=== PATIENT | male | born 1940 | race Hispanic/Latino ===

== ENCOUNTER 2023-06-19 16:10 | Emergency (ER) | payer OTHER ==
[~2023-06-19] VITALS: Ht 180.3 cm; Wt 83.9 kg
[2023-06-19 16:13] VITALS: BP 154/74; PULSE 79; RESP 14
== END 2023-06-19 16:56 | disposition left against medical advice (07) ==
LOC: EDH 16:10
DX: R46.1 Bizarre personal appearance (principal); Z53.21 Procedure and treatment not carried out due to patient leaving prior to being seen by health care provider

== ENCOUNTER 2023-10-02 16:31 | Emergency (ER) | payer MEDICARE, OTHER ==
[~2023-10-02] VITALS: Ht 165.1 cm; Wt 72.6 kg
[2023-10-02 16:48] VITALS: BP 143/68; O2SAT 94
[2023-10-02] MEDS ORDERED: ALBUTEROL 0.042% 1.25MG/3ML IH ONE (17:00)
[2023-10-02 17:15] VITALS: PULSE 76; RESP 20
[2023-10-02] MEDS ORDERED: ALBUTEROL 0.083% 2.5 MG/3 ML INH IH ONE (17:30)
[2023-10-02] MEDS ORDERED: FAMO-136 PO (17:42)
[2023-10-02] MEDS ORDERED: ALBUHFA IH (17:42)
[2023-10-02] MEDS ORDERED: METO-296 PO (17:42)
== END 2023-10-02 18:08 | disposition home or self-care (01) ==
LOC: EDH 16:31
DX: R13.10 Dysphagia, unspecified (principal); J45.998 Other asthma; I10 Essential (primary) hypertension; E78.00 Pure hypercholesterolemia, unspecified; F32.A Depression, unspecified; F03.90 Unspecified dementia, unspecified severity, without behavioral disturbance, psychotic disturbance, mood disturbance, and anxiety
CPT/HCPCS: 94640

== ENCOUNTER 2024-03-12 13:13 | Inpatient (IN) | payer OTHER ==
[2024-03-12] VITALS (11 sets, daily range): BP systolic 113–162; BP diastolic 56–87; PULSE 56–72; RESP 14–20; O2SAT 98
[~2024-03-12] VITALS: Ht 157.5 cm; Wt 73.9 kg
[~2024-03-12 13:13] MED LIST: ALBUHFA IH; FAMO-136 PO; METO-296 PO
[2024-03-12 13:35] LABS: BASOPHILS # (AUTO) 0.03 K/uL (0.00-0.20); BASOPHILS % (AUTO) 0.3 % (0.0-5.0); EOSINOPHILS # (AUTO) 0.29 K/uL (0.00-0.70); EOSINOPHILS % (AUTO) 3.2 % (0.0-8.0); HEMATOCRIT 47.6 % (42-54); IMMATURE GRANULOCYTE ABSOLUTE 0.05 K/uL (0-1); LYMPHOCYTES # (AUTO) 2.3 K/uL (1.0-4.8); LYMPHOCYTES % (AUTO) 25.2 % (21.0-51.0); MEAN CORPUSCULAR HEMOGLOBIN 31.2 pg (27.0-33.0); MEAN CORPUSCULAR HGB CONC 34.2 g/dL (32.0-36.0); MEAN CORPUSCULAR VOLUME 91.2 fL (79-99); MONOCYTES # (AUTO) 0.7 K/uL (0.1-1.0); MONOCYTES % (AUTO) 7.6 % (3.0-13.0); NEUTROPHILS # (AUTO) 5.8 K/uL (1.8-7.7); NEUTROPHILS % (AUTO) 63.2 % (40.0-77.0); PLATELET COUNT (AUTO) 223 K/uL (130-400); RED BLOOD CELL COUNT(AUTO) 5.22 MIL/uL (4.50-6.20); RED CELL DISTRIBUTION WIDTH 13.4 % (11.0-15.5); WHITE BLOOD COUNT (AUTO) 9.2 K/uL (4.8-10.8)
[2024-03-12 13:49] LABS: ALBUMIN 4.1 g/dL (3.5-5.0); BILIRUBIN,TOTAL 0.6 mg/dL (0.2-1.0); POTASSIUM 3.9 mmol/L (3.5-5.1); TOTAL PROTEIN, SERUM 7.7 g/dL (6.0-8.3)
[2024-03-12 13:59] LABS: INR 0.96 (0.85-1.15); PROTHROMBIN TIME 11.4 SEC (9.6-11.6)
[2024-03-12 14:01] LABS: PARTIAL THROMBOPLASTIN TIME 28.5 SEC (26.3-35.5)
[2024-03-12] MEDS: GLUCAGON 1MG KIT 1 MG ML IV SCH (14:18)
[2024-03-12] MEDS: GLUCAGON 1MG KIT 1 MG ML IV ONE (16:35)
[2024-03-12] MEDS: 0.9%NACL 1000ML 1,000 ML IV SCH (16:37)
[2024-03-12] MEDS: GLUCAGON 1MG KIT 1 MG ML ONE (16:39)
[2024-03-12 16:45] LABS: HEMOGLOBIN A1C 6.7 % (4.0-6.0)
[2024-03-12 16:58] LABS: THYROID STIMULATING HORMONE 2.56 uIU/mL (0.36-3.74)
[2024-03-12] MEDS ORDERED: PROPOFOL 10 MG/ML 20ML VIAL IV ONE (17:55)
[2024-03-12] MEDS ORDERED: LIDOCAINE PF 100MG/5ML (2%) SYRINGE 5ML ONE (17:55)
[2024-03-12] MEDS ORDERED: SUCCINYLCHOLINE CHLORIDE 20 MG/ML 10 ML VIAL ONE (17:55)
[2024-03-12] MEDS ORDERED: FENTANYL CITRATE PF 50 MCG/1 ML 2ML VIAL ONE (17:55)
[2024-03-12] MEDS ORDERED: KETAMINE 50MG/ML SYRINGE 50 MG/ML DISP.SYRIN ONE (17:55)
[2024-03-12] MEDS ORDERED: EPHEDRINE SULFATE 50 MG/ML AMPULE ONE (18:21)
[2024-03-12] MEDS ORDERED: ONDANSETRON 4MG INJ ONE (18:52)
[2024-03-12] MEDS: PANTOPRAZOLE 40 MG/VIAL IVP SCH (21:14)
[2024-03-13] VITALS (8 sets, daily range): BP systolic 116–129; BP diastolic 57–69; PULSE 67–79; RESP 18–22; O2SAT 94–95
[2024-03-13 07:42] LABS: BASOPHILS # (AUTO) 0.03 K/uL (0.00-0.20); BASOPHILS % (AUTO) 0.2 % (0.0-5.0); EOSINOPHILS # (AUTO) 0.01 K/uL (0.00-0.70); EOSINOPHILS % (AUTO) 0.1 % (0.0-8.0); HEMATOCRIT 43.4 % (42-54); LYMPHOCYTES # (AUTO) 1.2 K/uL (1.0-4.8); LYMPHOCYTES % (AUTO) 7.5 % (21.0-51.0); MEAN CORPUSCULAR HEMOGLOBIN 31.7 pg (27.0-33.0); MEAN CORPUSCULAR HGB CONC 33.6 g/dL (32.0-36.0); MEAN CORPUSCULAR VOLUME 94.3 fL (79-99); MONOCYTES # (AUTO) 0.8 K/uL (0.1-1.0); MONOCYTES % (AUTO) 5.1 % (3.0-13.0); NEUTROPHILS # (AUTO) 14.2 K/uL (1.8-7.7); NEUTROPHILS % (AUTO) 86.5 % (40.0-77.0); PLATELET COUNT (AUTO) 187 K/uL (130-400); RED CELL DISTRIBUTION WIDTH 13.7 % (11.0-15.5); WHITE BLOOD COUNT (AUTO) 16.4 K/uL (4.8-10.8)
[2024-03-13 07:56] LABS: CREATININE 1.1 mg/dL (0.5-1.3); POTASSIUM 3.8 mmol/L (3.5-5.1)
[2024-03-13] MEDS ORDERED: PROPOFOL 10 MG/ML 20ML VIAL IV ONE (08:28)
[2024-03-13] MEDS ORDERED: LIDOCAINE HCL 400MG/20ML VIAL ONE (08:29)
[2024-03-13] MEDS ORDERED: SERT-440 PO (20:06)
[2024-03-13] MEDS ORDERED: OMEG100033 PO (20:06)
[2024-03-13] MEDS ORDERED: LOSA25TA41 PO (20:06)
[2024-03-13] MEDS ORDERED: CETI10TA87 PO (20:06)
[2024-03-13] MEDS ORDERED: ATOR10 PO (20:06)
[2024-03-13] MEDS ORDERED: MEMA5TAB16 PO (20:06)
[2024-03-14 03:15] VITALS: BP 143/69; PULSE 64; RESP 18
[2024-03-14 04:15] LABS: BASOPHILS # (AUTO) 0.02 K/uL (0.00-0.20); BASOPHILS % (AUTO) 0.2 % (0.0-5.0); EOSINOPHILS # (AUTO) 0.19 K/uL (0.00-0.70); EOSINOPHILS % (AUTO) 1.7 % (0.0-8.0); HEMATOCRIT 36.3 % (42-54); IMMATURE GRANULOCYTE ABSOLUTE 0.05 K/uL (0-1); LYMPHOCYTES # (AUTO) 1.7 K/uL (1.0-4.8); LYMPHOCYTES % (AUTO) 15.4 % (21.0-51.0); MEAN CORPUSCULAR HEMOGLOBIN 31.2 pg (27.0-33.0); MEAN CORPUSCULAR HGB CONC 33.6 g/dL (32.0-36.0); MEAN CORPUSCULAR VOLUME 92.8 fL (79-99); MONOCYTES # (AUTO) 0.8 K/uL (0.1-1.0); MONOCYTES % (AUTO) 6.7 % (3.0-13.0); NEUTROPHILS # (AUTO) 8.5 K/uL (1.8-7.7); NEUTROPHILS % (AUTO) 75.6 % (40.0-77.0); PLATELET COUNT (AUTO) 170 K/uL (130-400); RED BLOOD CELL COUNT(AUTO) 3.91 MIL/uL (4.50-6.20); RED CELL DISTRIBUTION WIDTH 13.6 % (11.0-15.5); WHITE BLOOD COUNT (AUTO) 11.2 K/uL (4.8-10.8)
[2024-03-14 04:41] LABS: CREATININE 0.9 mg/dL (0.5-1.3); MAGNESIUM 1.9 mg/dL (1.80-2.40); PHOSPHORUS 2.2 mg/dL (2.5-4.9); POTASSIUM 3.6 mmol/L (3.5-5.1)
[2024-03-14 07:00] VITALS: BP 146/80; PULSE 65; RESP 20
[2024-03-14 08:00] VITALS: O2SAT 94
[2024-03-14] MEDS ORDERED: PANT40TA55 PO (08:23)
== END 2024-03-14 11:35 | disposition home or self-care (01) | DRG 394 ==
LOC: EDH 13:13 → EDHIP 16:14 → 2DH 17:58 → 2AH 18:48
PROVIDERS: ADMIT Internal Medicine; ATTEND Internal Medicine
PROC: 0DC38ZZ Extirpation of Matter from Lower Esophagus, Via Natural or Artificial Opening Endoscopic (ICD-10-PCS; principal; 2024-03-12)
PROC: 0D758ZZ Dilation of Esophagus, Via Natural or Artificial Opening Endoscopic (ICD-10-PCS; 2024-03-12)
DX: T18.128A Food in esophagus causing other injury, initial encounter (principal); Q39.9 Congenital malformation of esophagus, unspecified; R94.31 Abnormal electrocardiogram [ECG] [EKG]; E78.00 Pure hypercholesterolemia, unspecified; F03.90 Unspecified dementia, unspecified severity, without behavioral disturbance, psychotic disturbance, mood disturbance, and anxiety; I11.9 Hypertensive heart disease without heart failure; W44.F3XA Food entering into or through a natural orifice, initial encounter; F32.A Depression, unspecified; Y93.G3 Activity, cooking and baking; Y92.89 Other specified places as the place of occurrence of the external cause; Y99.8 Other external cause status; K21.00 Gastro-esophageal reflux disease with esophagitis, without bleeding
CPT/HCPCS: 36415; 43247; 70490; 71045; 80048; 80053; 83036; 83735; 84100; 84145; 84443; 84484; 85025; 85610; 85730; 86140; 92610; 93005; 93306; 93356; 96374; 96375; 96376; C9113; G0378; J0330; J1610; J2001; J2405; J2704; J3010; J3490; J7030; A4657

== ENCOUNTER 2025-03-07 21:49 | Emergency (ER) | payer OTHER ==
[~2025-03-07] VITALS: Ht 160 cm; Wt 74.4 kg
[~2025-03-07 21:49] MED LIST changes: -ALBUHFA IH; +ATOR10 PO; +CETI10TA87 PO; -FAMO-136 PO; +LOSA25TA41 PO; +MEMA5TAB16 PO; -METO-296 PO; +OMEG100033 PO; +PANT40TA55 PO; +SERT-440 PO
[2025-03-07] MEDS ORDERED: IOHEXOL-350 75 ML VIAL IV ONE (21:54)
--- NOTE | 2025-03-07 21:57 | NUR ---
FINGERSTICK GLUCOSE 322 MG/DL, PATIENT TO CT WITH RN
--- NOTE | 2025-03-07 22:07 | NUR ---
PATIENT RETURNED FROM CT
[2025-03-07 22:13] LABS: BASOPHILS # (AUTO) 0.03 K/uL (0.00-0.20); BASOPHILS % (AUTO) 0.4 % (0.0-5.0); EOSINOPHILS % (AUTO) 2.9 % (0.0-8.0); HEMATOCRIT 43.8 % (42-54); IMMATURE GRANULOCYTE ABSOLUTE 0.04 K/uL (0-1); LYMPHOCYTES % (AUTO) 28.2 % (21.0-51.0); MEAN CORPUSCULAR HEMOGLOBIN 32.3 pg (27.0-33.0); MEAN CORPUSCULAR HGB CONC 34.7 g/dL (32.0-36.0); MEAN CORPUSCULAR VOLUME 93.2 fL (79-99); MONOCYTES # (AUTO) 0.5 K/uL (0.1-1.0); MONOCYTES % (AUTO) 6.9 % (3.0-13.0); NEUTROPHILS # (AUTO) 4.2 K/uL (1.8-7.7); PLATELET COUNT (AUTO) 199 K/uL (130-400); RED CELL DISTRIBUTION WIDTH 13.5 % (11.0-15.5); WHITE BLOOD COUNT (AUTO) 6.9 K/uL (4.8-10.8)
--- NOTE | 2025-03-07 22:13 | HMCIMG ---
CT HEAD/BRAIN W/O CONTRAST HISTORY: Postop COMPARISON: None TECHNIQUE: Multiple sequential axial images of the head were obtained from the base of the skull through vertex. Patient was not given contrast through intravenous route. FINDINGS: The ventricles and extraventricular CSF spaces are dilated consistent with cerebral atrophy. Nonspecific white matter changes seen. There is no midline shift, mass effect or herniation. No acute intracranial bleed is seen. Visualized portion of the paranasal sinuses are grossly within normal limits. IMPRESSION: 1. No acute intracranial bleed is seen. 2. Atrophy with white matter changes. CT was performed with one or more following dose reduction techniques: automated exposure control, adjustment of the mA and kv according to patient's size, or use of a iterative reconstruction technique.
--- NOTE | 2025-03-07 22:19 | EKG ---
[facility] Test Date: 2025-03-07 Test Time: 22:16:08 Pat Name: TAMIR OWUSU Department: [facility] Room: Gender: M Development Scientist: [id number] : 1940 Requested By: ANT CHRISTIANSON Order Number: [id number] Reading MD: Bhumi Lee Measurements Intervals Mobile Rate: 66 P: -3 MO: 171 QRS: -38 QRSD: 143 T: 143 QT: 434 QTc: 454 Interpretive Statements Sinus rhythm Left bundle branch block ST elevation secondary to IVCD Compared to ECG 03/12/2024 13:31:04 Intraventricular conduction delay now present ST (T wave) deviation now present Electronically Signed On 03-08-2025 11:56:42 CDT by Bhumi Lee Please click the below link to view image of tracing.
[2025-03-07 22:29] LABS: CREATININE 0.9 mg/dL (0.5-1.3); POTASSIUM 4.2 mmol/L (3.5-5.1)
[2025-03-07 22:30] LABS: MAGNESIUM 1.9 mg/dL (1.80-2.40)
[2025-03-07 22:31] LABS: INR 1.02 (0.85-1.15); PROTHROMBIN TIME 10.8 SEC (9.6-11.6)
[2025-03-07 22:32] LABS: PARTIAL THROMBOPLASTIN TIME 28.1 SEC (26.3-35.5)
--- NOTE | 2025-03-07 23:27 | NUR ---
TRIAGE EDIT DUE TO MORE PT INFORMATION OBTAINED
[2025-03-07] MEDS: INSULIN humuLIN R 100 UNIT/ML 3ML IV ONE (23:28)
--- NOTE | 2025-03-07 23:35 | ERN ---
ED Note History of Present Illness Stated Complaint: BILATERAL HAND WEAKNESS, GAIT UNBALANCE Chief Complaint: Stroke Symptoms Time Seen by MD: 22:20 Time Seen by Midlevel: 22:21 Dictation: 85-year-old male presents to the emergency department per EMS accompanied by his daughter for concern of having generalized body weakness that was noted today at 2100. The daughter states that she was concerned that he appeared fatigued. The patient denies having any headache, nausea, vomiting or changes in vision. There is also no report of any chest pain, chest pressure or shortness of breath. Upon initial evaluation, the patient presents in no acute distress. Patient states that he feels currently fine. The daughter states that he is upon occasional forgetful but currently has his normal neurological self. Allergies: Coded Allergies: No Known Allergies (Unverified Allergy, Unknown, 06/19/23) Home Meds Active Scripts Pantoprazole Sodium (Protonix) 40 Mg Ectab, 40 MG PO BID, #60 TAB.EC Prov:FABIOLA REYES MD 03/14/24 Reported Medications Cetirizine HCl (Cetirizine HCl) 10 Mg Tab.chew, 10 MG PO DAILY, TAB.CHEW 03/13/24 Sertraline HCl (Sertraline HCl) 100 Mg Tablet, 100 MG PO HS, TAB 03/13/24 Memantine HCl (Memantine HCl) 5 Mg Tablet, 2.5 MG PO DAILY, TAB 03/13/24 Losartan Potassium (Losartan Potassium) 25 Mg Tablet, 12.5 MG PO DAILY, TAB 03/13/24 [place]-3/Dha/Epa/Fish Oil (Fish Oil 1,000 mg Softgel) 1,000 Mg (120 Mg-180 Mg) Capsule, 1000 MG PO DAILY, CAP 03/13/24 Atorvastatin Calcium (LIPITOR) 20 Mg Tab, 20 MG PO HS, TAB 03/13/24 Past Medical History Past Medical History: Dementia, Depression, Diabetes-Type II, High Cholesterol, Hypertension, Sinusitis, Other Additional Past Medical Hx: ALZHEIMERS, MENIERE'S Surgical History: Unknown RN Note Reviewed/Agreed w/PFSH: Yes Review of System Dictation Constitutional: Negative for fever,chills, and weight loss Eyes: Negative for injury, pain,redness, and discharge ENT: Negative for injury,pain or swelling Cardiovascular: Negative for chest pain, palpitations, and edema Respiratory: Negative for shortness of breath, cough, and wheezing, Abdomen/GI: Negative for abdominal pain, nausea, vomiting, diarrhea, and constipation Back: Negative for injury and pain : Negative for injury, bleeding and discharge MS/Extremity: Negative for injury and deformity Skin: Negative for rash, and discoloration Neuro: Negative for headache, weakness, numbness, tingling, and seizure Psych: Negative for suicide ideation, homicidal ideation, and hallucinations Initial Vital Sign VS Vital Signs Date Time Temp Pulse Resp B/P (MAP) Pulse Ox O2 Delivery O2 Flow Rate FiO2 03/07/25 21:51 98.4 71 20 165/74 92 Room Air 03/07/25 22:34 0 21 Physical Exam Dictation General: awake, alert, NAD Head/Face: Normocephalic, atraumatic Eyes: PERRL, EOMI ENT: Oral mucosa moist Neck: Trachea midline, supple Cardiovascular: RRR, no edema Respiratory: Symmetrical, non-labored Abdomen: Soft, non-tender, non-distended, no guarding. Skin: Warm, dry, good turgor, no rash MS/Extremity: Pulses equal, no cyanosis, neurovascular intact, FROM Neuro: COAx4, GCS 15, steady gait, Psych: Normal behavior, mood, and affect normal Results (Laboratory/Radiology) Laboratory/Radiology Laboratory Tests Test 03/07/25 21:56 03/07/25 22:07 03/07/25 23:17 Whole Blood Glucose 322 MG/DL (70-110) H White Blood Count 6.9 K/uL (4.8-10.8) Red Blood Count 4.70 MIL/uL (4.50-6.20) Hemoglobin 15.2 g/dL (14.0-18.0) Hematocrit 43.8 % (42-54) Mean Corpuscular Volume 93.2 fL (79-99) Mean Corpuscular Hemoglobin 32.3 pg (27.0-33.0) Mean Corpuscular Hemoglobin Concent 34.7 g/dL (32.0-36.0) Red Cell Distribution Width 13.5 % (11.0-15.5) Platelet Count 199 K/uL (130-400) Mean Platelet Volume 10.7 fL (7.5-10.5) H Immature Granulocyte % (Auto) 0.6 % (0-1) Neutrophils (%) (Auto) 61.0 % (40.0-77.0) Lymphocytes (%) (Auto) 28.2 % (21.0-51.0) Monocytes (%) (Auto) 6.9 % (3.0-13.0) Eosinophils (%) (Auto) 2.9 % (0.0-8.0) Basophils (%) (Auto) 0.4 % (0.0-5.0) Neutrophils # (Auto) 4.2 K/uL (1.8-7.7) Lymphocytes # (Auto) 2.0 K/uL (1.0-4.8) Monocytes # (Auto) 0.5 K/uL (0.1-1.0) Eosinophils # (Auto) 0.20 K/uL (0.00-0.70) Basophils # (Auto) 0.03 K/uL (0.00-0.20) Absolute Immature Granulocyte (auto 0.04 K/uL (0-1) Nucleated Red Blood Cells 0.0 % (0.0-0.19) Prothrombin Time 10.8 SEC (9.6-11.6) Prothromb Time International Ratio 1.02 (0.85-1.15) Activated Partial Thromboplast Time 28.1 SEC (26.3-35.5) Sodium Level 136 mmol/L (136-145) Potassium Level 4.2 mmol/L (3.5-5.1) Chloride Level 101 mmol/L (101-111) Carbon Dioxide Level 25 mmol/L (21-32) Blood Urea Nitrogen 11 mg/dL (7-18) Creatinine 0.9 mg/dL (0.5-1.3) Glomerular Filtration Rate Calc 85 mL/min (>90) Random Glucose 337 mg/dL (70-105) H Total Calcium 8.9 mg/dL (8.5-10.1) Magnesium Level 1.90 mg/dL (1.80-2.40) Troponin I High Sensitivity 11 ng/L (4-75) Whole Blood Ketones Quantitative 0.2 mmol/L (0.0-0.6) Labs Reviewed?: Yes EKG: (+) LBBB EKG Comment: Ventricular rate 66 beats per minute DE 172 MS QRS 143 MS QT 434 MS No STEMI. The EKG compared with the previous 1 shows a left bundle-branch block. ED Course ED Course Orders Procedure Category Date Status Time Cbc With Differential LAB 03/07/25 Complete 21:54 Basic Metabolic Panel LAB 03/07/25 Complete 21:54 Troponin I High LAB 03/07/25 Complete Sensitivity 21:54 Ct Head/Brain W/O CT 03/07/25 Resulted Contrast 21:54 Bedside Glucose CPOE 03/07/25 Transmitted Fingerstick 21:54 Insert 2 Large Bore CPOE 03/07/25 Transmitted IVs 21:54 Place On Cardiac&O2 CPOE 03/07/25 Transmitted Monitoring 21:54 Keep Patient Npo CPOE 03/07/25 Transmitted 21:54 Complete Nih Stroke CPOE 03/07/25 Transmitted Scale 21:54 Maintain Patient CPOE 03/07/25 Transmitted Safety 21:54 Pt And Ptt LAB 03/07/25 Complete 21:54 Iohexol (Omnipaque) PHA 03/07/25 Complete 21:54 12 Lead Ekg Tracing- EKG 03/07/25 Complete Technical 21:55 Chest 1vw RAD 03/07/25 Taken 21:55 Magnesium LAB 03/07/25 Complete 22:07 Ketone Blood LAB 03/07/25 Complete Quantitative 23:09 Insulin Regular, PHA 03/07/25 Complete Human 3ml (Humulin R 23:30 Current Medications Medications (Trade) Dose Ordered Sig/Gianna Route PRN Reason Start Time Stop Time Status Last Admin Dose Admin Insulin Human Regular (humuLIN R 100 UNIT/ML 3ML) 5 unit ONCE ONCE IV 03/07/25 23:30 03/07/25 23:31 DC 03/07/25 23:28 Iohexol (Omnipaque) 75 ml STK-MED ONCE IV 03/07/25 21:54 03/07/25 21:55 DC Vital Signs Date Time Temp Pulse Resp B/P (MAP) Pulse Ox O2 Delivery O2 Flow Rate FiO2 03/07/25 22:34 68 22 158/68 96 Room Air* 0 21 03/07/25 21:51 98.4 71 20 165/74 92 Room Air HEART Score Response (Comments) Value History: Low suspicion (0) 0 EKG: Normal 0 Age: > 65yrs (+2) 2 Risk Factors: 1-2 risk factors (+1) 1 Initial Troponin: Normal limit (0) 0 Total 3 Medical Decision Making MDM MDM: Differential diagnosis: Generalized weakness, electrolyte imbalance, CVA. Rationale: Tests considered and ordered secondary to shared decision making include: Previous outside records reviewed: Old ER visits. Risk of complication and/or morbidity or mortality of patient management: None Medications-Per medication reconciliation Need for hospitalization: Patient does not meet criteria for hospitalization. Need for emergency major/minor surgery: No There are no social concerns with this patient. Prescription drug management Prescriptions will include symptomatic care Patient's prior external medical records from other ER visits were reviewed by me as indicated. Prior testing and results from previous visits were reviewed. Prior tests were taken into account with medical decision making and resource utilization, independent historian/historians were used to obtain complete medical history. I independently interpreted the test that were performed, results were reviewed by me and considered findings on radiology if ordered. Medical management and examination interpretation discussions were had by me with other qualified healthcare professionals as indicated for the patient's care. NIH STROKE SCALE: NIH STROKE SCALE Response (Comments) Value Level of Consciousness Alert 0 Ask patient month and their age Answers both correct 0 Command to open eyes, make fist and let go Obeys both correct 0 Best gaze (horizontal eye movement) Normal 0 Visual Field Testing No Visual Field Loss 0 Facial Paresis Normal / Symmetrical 0 Motor Function - Left Arm Normal 0 Motor Function - Right Arm Normal 0 Motor Function - Left Leg Normal 0 Motor Function - Right Leg Normal 0 Limb Ataxia No Ataxia 0 Sensory-pin prick to arms, legs, trunk and face Normal 0 Best Language (describe picture, name items and read) No Aphasia 0 Dysarthria (read several words) Normal Articulation 0 Extinction and Inattention Normal 0 Total 0 DX & DISP Disposition: Discharge Departure Impression: Primary Impression: Diabetes mellitus with hyperglycemia Additional Impression: Generalized weakness Condition: Stable Referrals: WILFREDO BOWERS (PCP) JIMMY PETERS March 07, 2025 23:35
[2025-03-07 23:58] VITALS: BP 151/70; PULSE 61; RESP 20; TEMP 97.8; O2SAT 96
--- NOTE | 2025-03-08 08:27 | HMCIMG ---
PORTABLE CHEST RADIOGRAPH INDICATION: CODE STROKE COMPARISON: 03/12/2024 FINDINGS: forensic structural engineer leads overlie the field of view. Heart size is normal. Mild central pulmonary vascular enlargement. No abnormal pulmonary parenchymal opacity or consolidation identified. No significant pleural effusion noted. No pneumothorax detected. IMPRESSION: Mild central pulmonary vascular congestion.
== END 2025-03-08 | disposition home or self-care (01) ==
LOC: EDH 21:49
DX: E11.65 Type 2 diabetes mellitus with hyperglycemia (principal); R53.1 Weakness; F02.83 Dementia in other diseases classified elsewhere, unspecified severity, with mood disturbance; E78.00 Pure hypercholesterolemia, unspecified; F32.A Depression, unspecified; I10 Essential (primary) hypertension; Z79.899 Other long term (current) drug therapy
CPT/HCPCS: 99285; 96374; 70450; 71045; 83735; 84484; 80048; 85025; 85610; 85730; 82948; 82010; 36415; 93005; J1815; Q9967

== ENCOUNTER 2025-10-01 10:44 | Inpatient (IN) | payer OTHER ==
[~2025-10-01] VITALS: Ht 167.6 cm; Wt 66.7 kg
--- NOTE | 2025-10-01 11:02 | NUR ---
SOC COMPLETED BY JOSEPH LOMBARDI NEGATIVE CUTTER
--- NOTE | 2025-10-01 11:19 | NUR ---
TELENEURO DONE WITH FAMILY AT BEDSIDE
--- NOTE | 2025-10-01 11:29 | CONS ---
CONSULT NOTE: [facility] Note # Demographics Consult Type: Acute Stroke Level 1 (0-4.5 hrs) Patient Location: Emergency Room First Name: TAMIR ARRIAGA Last Name: UMER Date of : 1940 Age: 85 Gender: Male Facility: [facility] Time of Initial Page (Central Time): 10/01/2025 10:55 First Contact with Site (Central Time): 10/01/2025 10:56 # HPI Chief Complaint: - weakness (generalized) History: 85 y/o M with hx of HTN and dementia who was brought in by family for increased confusion. Found on the floor at 8 AM. Last normal 2 AM. Family also concerned for shuffling gait. Family concerned that he is unable to hold himself upright. Would sit on the bed and fall back. No clear lateralizing weakness. Has always had a "quick little gait" but this is a sudden change. Yesterday did have a headache as well as slight fever. # Scores Time of exam and NIHSS (Central Time): 10/01/2025 11:17 Level of Consciousness 1a: [0] = Alert; keenly responsive LOC Questions 1b: [2] = Answers neither correctly LOC Commands 1c: [0] = Performs both tasks correctly Best Gaze 2: [0] = Normal Visual 3: [0] = No visual loss Facial Palsy 4: [0] = Normal symmetrical movements Motor Arm Left 5a: [0] = No drift Motor Arm Right 5b: [0] = No drift Motor Leg Left 6a: [0] = No drift Motor Leg Right 6b: [0] = No drift Limb Ataxia 7: [0] = Absent Sensory 8: [0] = Normal Best Language 9: [0] = No aphasia Dysarthria 10: [0] = Normal Extinction and Inattention 11: [0] = No abnormality NIHSS Total: 2 # Exam Additional Neurologic Exam: No resting tremor # Data Head CT: - no bleed - preliminarily reviewed by me, please refer to radiology read for official reading # Assessment Impression: - Weakness Family concerned for shuffling gait, though acute onset and absence of other Parkinson's symptoms make new diagnosis of Parkinson's less likely. # Plan Thrombolytic/Intervention: NOT IV Thrombolysis or IA Intervention candidate Thrombolytic Exclusion: > 4.5 hours Intraarterial Exclusion: - other clinical exam not consistent with LVO Other: - If patient has any neurological deterioration please call me back immediately Additional Recommendations: Infectious/metabolic per ED/Primary. Can consider brain MRI if no clear etiology and symptoms persist. # Logistics Attestation of consult completion: The patient is located at: [facility]. Facility staff participated in the visit. I performed this telemedicine visit from my offsite office utilizing interactive 2 way audio and visual telecommunication technology at the request of the onsite emergency room provider. Total time spent in telemedicine encounter: I spent 15 minutes reviewing clinical data and/or imaging, obtaining history, examining the patient, communicating with the onsite care team, and in preparation of this report. # Demographics First Name: TAMIR ARRIAGA Last Name: UMER Facility: [facility] NASEEM BROWN MD Oct 01, 2025 11:29
--- NOTE | 2025-10-01 11:30 | ERN ---
ED Note History of Present Illness Stated Complaint: WEKANESS Chief Complaint: Stroke Symptoms Time Seen by MD: 10:56 Time Seen by Midlevel: 11:05 Dictation: 85-YEAR-OLD MALE WITH A HISTORY OF CHOLESTEROL, HYPERTENSION, DEMENTIA COMING IN BROUGHT BY DAUGHTER FOR EVALUATION OF A STROKE. DAUGHTER STATES LAST KNOWN WELL WAS 2:00 A.M., THIS MORNING ABOUT 8:00 A.M. DAUGHTER FOUND HIM ON THE GROUND, MORE CONFUSED THAN USUAL AND WITH A SHUFFLING GAIT AND SLURRED SPEECH. Allergies: Coded Allergies: No Known Allergies (Unverified Allergy, Unknown, 06/19/23) Home Meds Active Scripts Pantoprazole Sodium (Protonix) 40 Mg Ectab, 40 MG PO BID, #60 TAB.EC Prov:FABIOLA REYES MD 03/14/24 Reported Medications Cetirizine HCl (Cetirizine HCl) 10 Mg Tab.chew, 10 MG PO DAILY, TAB.CHEW 03/13/24 Sertraline HCl (Sertraline HCl) 100 Mg Tablet, 100 MG PO HS, TAB 03/13/24 Memantine HCl (Memantine HCl) 5 Mg Tablet, 2.5 MG PO DAILY, TAB 03/13/24 Losartan Potassium (Losartan Potassium) 25 Mg Tablet, 12.5 MG PO DAILY, TAB 03/13/24 [place]-3/Dha/Epa/Fish Oil (Fish Oil 1,000 mg Softgel) 1,000 Mg (120 Mg-180 Mg) Capsule, 1000 MG PO DAILY, CAP 03/13/24 Atorvastatin Calcium (LIPITOR) 20 Mg Tab, 20 MG PO HS, TAB 03/13/24 Past Medical History Past Medical History: Dementia, Depression, Diabetes-Type II, High Cholesterol, Hypertension, Sinusitis, Other Additional Past Medical Hx: ALZHEIMERS, MENIERE'S Surgical History: Unknown Review of System Dictation CONSTITUTIONAL: NEGATIVE FOR FEVER,CHILLS, AND WEIGHT LOSS EYES: NEGATIVE FOR INJURY, PAIN,REDNESS, AND DISCHARGE ENT: NEGATIVE FOR INJURY,PAIN OR SWELLING CARDIOVASCULAR: NEGATIVE FOR CHEST PAIN, PALPITATIONS, AND EDEMA RESPIRATORY: NEGATIVE FOR SHORTNESS OF BREATH, COUGH, AND WHEEZING, ABDOMEN/GI: NEGATIVE FOR ABDOMINAL PAIN, NAUSEA, VOMITING, DIARRHEA, AND CONSTIPATION BACK: NEGATIVE FOR INJURY AND PAIN : NEGATIVE FOR INJURY, BLEEDING AND DISCHARGE MS/EXTREMITY: NEGATIVE FOR INJURY AND DEFORMITY SKIN: NEGATIVE FOR RASH, AND DISCOLORATION NEURO: NEGATIVE FOR HEADACHE, WEAKNESS, NUMBNESS, TINGLING, AND SEIZURE PSYCH: NEGATIVE FOR SUICIDE IDEATION, HOMICIDAL IDEATION, AND HALLUCINATIONS Review of Systems: was completed Initial Vital Sign VS Vital Signs Date Time Temp Pulse Resp B/P (MAP) Pulse Ox O2 Delivery O2 Flow Rate FiO2 10/01/25 10:46 99.3 75 16 140/67 97 Room Air 10/01/25 11:20 0 21 Physical Exam Dictation GENERAL: AWAKE, ALERT, NAD HEAD/FACE: NORMOCEPHALIC, ATRAUMATIC EYES: PERRL, EOMI, VISION AT BASELINE ENT: ORAL CAVITY CLEAR, TMS CLEAR, NO SIGNS OF INFECTION NECK: TRACHEA MIDLINE, SUPPLE, NO NUCHAL RIGIDITY CARDIOVASCULAR: RRR, NORMAL S1/S2, NO MRGS, NO JVD RESPIRATORY: CTAB, NO RESPIRATORY DISTRESS, NO RALES OR WHEEZES ABDOMEN: SOFT, NON-TENDER, NON-DISTENDED, NORMAL BOWEL SOUNDS, NO GUARDING OR REBOUND. SKIN: WARM, DRY, NORMAL TURGOR, NO RASH MS/EXTREMITY: PULSES EQUAL, NO CYANOSIS, NEUROVASCULAR INTACT, FROM NEURO: COAX3, GCS 15, STRENGTH 5/5, CN 2-12 INTACT, NORMAL CEREBELLAR EXAM, NORMAL GAIT, PSYCH: NORMAL BEHAVIOR, MOOD, AND AFFECT NORMAL Results (Laboratory/Radiology) Laboratory/Radiology Laboratory Tests Test 10/01/25 10:50 10/01/25 11:14 10/01/25 12:33 10/01/25 12:40 Whole Blood Glucose 143 MG/DL (70-110) H White Blood Count 7.1 K/uL (4.8-10.8) Red Blood Count 4.90 MIL/uL (4.50-6.20) Hemoglobin 15.7 g/dL (14.0-18.0) Hematocrit 46.0 % (42-54) Mean Corpuscular Volume 93.9 fL (79-99) Mean Corpuscular Hemoglobin 32.0 pg (27.0-33.0) Mean Corpuscular Hemoglobin Concent 34.1 g/dL (32.0-36.0) Red Cell Distribution Width 13.4 % (11.0-15.5) Platelet Count 232 K/uL (130-400) Mean Platelet Volume 10.0 fL (7.5-10.5) Immature Granulocyte % (Auto) 0.7 % (0-1) Neutrophils (%) (Auto) 75.7 % (40.0-77.0) Lymphocytes (%) (Auto) 13.7 % (21.0-51.0) L Monocytes (%) (Auto) 9.5 % (3.0-13.0) Eosinophils (%) (Auto) 0.1 % (0.0-8.0) Basophils (%) (Auto) 0.3 % (0.0-5.0) Neutrophils # (Auto) 5.4 K/uL (1.8-7.7) Lymphocytes # (Auto) 1.0 K/uL (1.0-4.8) Monocytes # (Auto) 0.7 K/uL (0.1-1.0) Eosinophils # (Auto) 0.01 K/uL (0.00-0.70) Basophils # (Auto) 0.02 K/uL (0.00-0.20) Absolute Immature Granulocyte (auto 0.05 K/uL (0-1) Nucleated Red Blood Cells 0.0 % (0.0-0.19) Prothrombin Time 11.4 SEC (9.6-11.6) Prothromb Time International Ratio 1.08 (0.85-1.15) Activated Partial Thromboplast Time 30.8 SEC (26.3-35.5) Sodium Level 136 mmol/L (136-145) Potassium Level 3.7 mmol/L (3.5-5.1) Chloride Level 100 mmol/L (101-111) L Carbon Dioxide Level 27 mmol/L (21-32) Blood Urea Nitrogen 7 mg/dL (7-18) Creatinine 0.8 mg/dL (0.5-1.3) Glomerular Filtration Rate Calc 88 mL/min (>90) Random Glucose 144 mg/dL (70-105) H Total Calcium 9.3 mg/dL (8.5-10.1) Total Creatine Kinase 106 U/L (21-232) Troponin I High Sensitivity 25 ng/L (4-75) LDL Cholesterol 77 mg/dL (0-99) Ammonia < 10 umol/L (11-32) L Urine Color YELLOW (YELLOW) Urine Appearance CLEAR (CLEAR) Urine pH 5.5 (5.0-8.0) Urine Specific [place] 1.021 (1.001-1.031) Urine Protein 70 mg/dL (NEGATIVE) H Urine Glucose (UA) NEGATIVE mg/dL (NEGATIVE) Urine Ketones 5 mg/dL (NEGATIVE) H Urine Occult Blood LARGE (NEGATIVE) H Urine Nitrate NEGATIVE (NEGATIVE) Urine Bilirubin NEGATIVE mg/dL (NEGATIVE) Urine Urobilinogen 0.2 mg/dL (0.2-1.0) Urine Leukocyte Esterase NEGATIVE [place]/uL Urine RBC 6-10 /HPF (0-1) H Urine WBC 2-5 /HPF (0-1) H Urine Bacteria None Seen /HPF (None Seen) Urine Opiates Screen NEGATIVE (NEGATIVE) Urine Barbiturates Screen NEGATIVE (NEGATIVE) Urine Phencyclidine Screen NEGATIVE (NEGATIVE) Urine Amphetamines Screen NEGATIVE (NEGATIVE) Urine Benzodiazepines Screen NEGATIVE (NEGATIVE) Urine Cocaine Screen NEGATIVE (NEGATIVE) Urine Marijuana (THC) Screen NEGATIVE (NEGATIVE) Labs Reviewed?: Yes X-RAY Comment: [address] [id number] IMAGING REPORT Signed PATIENT: TAMIR OWUSU MR#: [id number] : 1940 SEX: M AGE: 85 LOCATION: [facility] ORDER [id number] STATUS: [facility] REPORT#: [id number] SERVICE 1056 REASON: STROKE ORDERING PHYSICIAN: JOSEPH DE LEON CNP PROCEDURE: CXR1VW - CHEST 1VW STUDY CR chest, 1 view. HISTORY Stroke. TECHNIQUE Single frontal radiograph of the chest. COMPARISON None provided. FINDINGS LUNGS No focal consolidation, pulmonary mass, or acute airspace infiltrate is identified. No nenita pulmonary edema is seen. PLEURAL SPACES No pleural effusion or pneumothorax is demonstrated. MEDIASTINUM Cardiac silhouette is enlarged, compatible with cardiomegaly. Mediastinal contours are within normal limits. Pulmonary rebeka appear prominent with increased pulmonary vascular markings, compatible with pulmonary vascular congestion. Thoracic aorta is tortuous and ectatic. BONES No acute osseous abnormality is identified. Visualized soft tissues are unremarkable. IMPRESSION * Cardiomegaly with pulmonary vascular congestion. * Aortic ectasia. * No focal consolidation, pleural effusion, or pneumothorax to suggest acute pulmonary parenchymal process. /[place] DICTATED BY: PATT LLAMAS Jr., MD DATE: 10/01/251316 ELECTRONICALLY SIGNED BY: PATT LLAMAS Jr., MD DATE: 10/01/251316 CT Scan Comment: [address] [place] [address] IMAGING REPORT Signed PATIENT: TAMIR OWUSU MR#: [id number] : 1940 SEX: M AGE: 85 LOCATION: [facility] ORDER [id number] STATUS: [facility] REPORT#: [id number] SERVICE 1051 REASON: SLURRED SPEECH, APPARENT FALL, WEAKNESS, CONFUSED ORDERING PHYSICIAN: GANESH LEVIN MD PROCEDURE: HEAD WO - CT HEAD/BRAIN W/O CONTRAST EXAM: CT Head Without IV contrast. CLINICAL HISTORY: SLURRED SPEECH, APPARENT FALL, WEAKNESS, CONFUSED TECHNIQUE: Axial computed tomography images of the head/brain without intravenous contrast. COMPARISON: None provided. FINDINGS: BRAIN: Age-related neuroparenchymal atrophy. Multiple bilateral periventricular hypodensities, suggestive of chronic ischemic changes. No evidence of acute hemorrhage. No mass lesion. No CT evidence for acute territorial infarct. No midline shift or extra-axial collections. VENTRICLES: No hydrocephalus. ORBITS: The orbits are unremarkable. SINUSES AND MASTOIDS: Opacification of right mastoid air cells, suggestive of mastoiditis. The paranasal sinuses are clear. BONES: No fracture. SOFT TISSUES: Unremarkable. IMPRESSION: 1. No acute intracranial findings. 2. Right mastoid opacification, suggestive of mastoiditis. /[place] ED Course ED Course Orders Procedure Category Date Status Time Ct Head/Brain W/O CT 10/01/25 Resulted Contrast 10:51 Cbc With Differential LAB 10/01/25 Complete 10:56 Prothrombin Time With LAB 10/01/25 Complete INR 10:56 Partial LAB 10/01/25 Complete Thromboplastin Time 10:56 Chest 1vw RAD 10/01/25 Resulted 10:56 12 Lead Ekg Tracing- EKG 10/01/25 Complete Technical 10:56 Creatine Kinase, Total LAB 10/01/25 Complete 10:56 Ldl Direct LAB 10/01/25 Complete 10:56 Troponin I High LAB 10/01/25 Complete Sensitivity 10:56 Urinalysis Profile LAB 10/01/25 Complete 10:56 Bedside Glucose CPOE 10/01/25 Transmitted Fingerstick 10:56 Basic Metabolic Panel LAB 10/01/25 Complete 10:56 Neurology Consult CONPHYSVC 10/01/25 Transmitted 11:00 Ammonia LAB 10/01/25 Complete 12:28 Drug Screen Urine LAB 10/01/25 Complete 12:28 Vital Signs Date Time Temp Pulse Resp B/P (MAP) Pulse Ox O2 Delivery O2 Flow Rate FiO2 10/01/25 13:00 98.8 76 18 140/71 97 Room Air* 0 21 10/01/25 11:20 72 18 138/76 95 Room Air* 0 21 10/01/25 10:46 99.3 75 16 140/67 97 Room Air Medical Decision Making MDM MDM: 85-YEAR-OLD MALE WITH A HISTORY OF CHOLESTEROL, HYPERTENSION, DEMENTIA COMING IN BROUGHT BY DAUGHTER FOR EVALUATION OF A STROKE. DAUGHTER STATES LAST KNOWN WELL WAS 2:00 A.M., THIS MORNING ABOUT 8:00 A.M. DAUGHTER FOUND HIM ON THE GROUND, MORE CONFUSED THAN USUAL AND WITH A SHUFFLING GAIT AND SLURRED SPEECH. NIH 2 in triage. Neurologist assess patient, recommended admission for possible m etabolic/infectious process. Patient is out of the timeframe for thrombolytics and no presentation indicating and LVO. Work is unremarkable. Ammonia is negative. UA shows no evidence of urinary tract infection. Configuration Consultant negative. CT scan shows no evidence of acute intracranial pathology only possible mastoiditis. Patient will be admitted for further evaluation of altered mental status. Spoke to [employer] SCIENCE TEACHER for hospitalist. Okay to admit. DIFFERENTIAL DIAGNOSIS: CVA, SDH, URINARY TRACT INFECTION RATIONALE: TESTS CONSIDERED AND ORDERED SECONDARY TO SHARED DECISION MAKING INCLUDE: LABS, ECG AND RADIOLOGY PREVIOUS OUTSIDE RECORDS REVIEWED: OLD ER VISITS. RISK OF COMPLICATION AND/OR MORBIDITY OR MORTALITY OF PATIENT MANAGEMENT: NONE MEDICATIONS-PER MEDICATION RECONCILIATION NEED FOR HOSPITALIZATION: PATIENT DOES MEET CRITERIA FOR HOSPITALIZATION. NEED FOR EMERGENCY MAJOR/MINOR SURGERY: NO THERE ARE NO SOCIAL CONCERNS WITH THIS PATIENT. PRESCRIPTION DRUG MANAGEMENT PRESCRIPTIONS WILL INCLUDE SYMPTOMATIC CARE PATIENT'S PRIOR EXTERNAL MEDICAL RECORDS FROM OTHER ER VISITS WERE REVIEWED BY ME INDICATED. PRIOR TESTING AND RESULTS FROM PREVIOUS VISITS WERE REVIEWED. PRIOR TESTS WERE TAKEN INTO ACCOUNT WITH MEDICAL DECISION MAKING AND RESOURCE UTILIZATION, INDEPENDENT HISTORIAN/HISTORIANS WERE USED TO OBTAIN COMPLETE MEDICAL HISTORY. I INDEPENDENTLY INTERPRETED THE TEST THAT WERE PERFORMED, RESULTS WERE REVIEWED BY ME AND CONSIDERED FINDINGS ON RADIOLOGY IF ORDERED. MEDICAL MANAGEMENT AND EXAMINATION INTERPRETATION DISCUSSIONS WERE HAD BY ME WITH OTHER QUALIFIED HEALTHCARE PROFESSIONALS INDICATED FOR THE PATIENT'S CARE. Critical Care Note Critical Time: 45 minutes (Stroke alert, neurovascular exam, checks, hemodynamic dilation,) DX & DISP Disposition: Inpatient Decision to Admit Date: Oct 01, 2025 Decision to Admit Time: 14:04 Departure Impression: Primary Impression: AMS (altered mental status) Additional Impression: Generalized weakness Condition: Stable Referrals: WILFREDO BOWERS (PCP) Time of Disposition: 13:06 I have reviewed the case, and I agree with, Diagnosis and Plan JOSEPH DE LEON CNP Oct 01, 2025 11:29
[2025-10-01 11:31] LABS: CREATININE 0.8 mg/dL (0.5-1.3); GLOMERULAR FILTR. RATE CALC 88.0 mL/min (>90); GLUCOSE,RANDOM 144.0 mg/dL (70-105); INR 1.08 (0.85-1.15); SODIUM SERUM 136.0 mmol/L (136-145); UREA NITROGEN, BLOOD 7.0 mg/dL (7-18)
[2025-10-01 11:35] LABS: CREATINE KINASE, TOTAL 106.0 U/L (21-232); LDL DIRECT 77.0 mg/dL (0-99)
[2025-10-01 11:42] LABS: IMMATURE GRANULOCYTE ABSOLUTE 0.05 K/uL (0-1); NUCLEATED RED BLOOD CELLS 0.0 % (0.0-0.19); PLATELET COUNT (AUTO) 232 K/uL (130-400); RED BLOOD CELL COUNT(AUTO) 4.90 MIL/uL (4.50-6.20); RED CELL DISTRIBUTION WIDTH 13.4 % (11.0-15.5); WHITE BLOOD COUNT (AUTO) 7.1 K/uL (4.8-10.8)
--- NOTE | 2025-10-01 11:42 | EKG ---
[facility] Test Date: 2025-10-01 Test Time: 11:02:30 Pat Name: TAMIR OWUSU Department: [facility] Room: Gender: M Senior Staff Consultant: [id number] : 1940 Requested By: JOSEPH DE LEON Order Number: [id number] Reading MD: Rafi Chun Measurements Intervals [place] Rate: 72 P: -34 PA: 162 QRS: -38 QRSD: 152 T: 114 QT: 423 QTc: 464 Interpretive Statements Sinus rhythm Left bundle branch block ST elevation secondary to IVCD Compared to ECG 03/07/2025 22:16:08 No significant changes Electronically Signed On 10-01-2025 14:52:16 SOUND EFFECTS MANAGER by Rafi Chun Please click the below link to view image of tracing.
--- NOTE | 2025-10-01 12:18 | HMCIMG ---
STUDY CR chest, 1 view. HISTORY Stroke. TECHNIQUE Single frontal radiograph of the chest. COMPARISON None provided. FINDINGS LUNGS No focal consolidation, pulmonary mass, or acute airspace infiltrate is identified. No nenita pulmonary edema is seen. PLEURAL SPACES No pleural effusion or pneumothorax is demonstrated. MEDIASTINUM Cardiac silhouette is enlarged, compatible with cardiomegaly. Mediastinal contours are within normal limits. Pulmonary rebeka appear prominent with increased pulmonary vascular markings, compatible with pulmonary vascular congestion. Thoracic aorta is tortuous and ectatic. BONES No acute osseous abnormality is identified. Visualized soft tissues are unremarkable. IMPRESSION * Cardiomegaly with pulmonary vascular congestion. * Aortic ectasia. * No focal consolidation, pleural effusion, or pneumothorax to suggest acute pulmonary parenchymal process. /[place]
[2025-10-01 13:00] LABS: APPEARANCE,URINE CLEAR (CLEAR); GLUCOSE, URINE (UA) NEGATIVE (NEGATIVE); LEUKOCYTE ESTERASE ,URINE NEGATIVE Leu/uL (NEGATIVE); NITRATE,URINE NEGATIVE (NEGATIVE); OCCULT BLOOD,URINE LARGE (NEGATIVE)
[2025-10-01 13:07] LABS: AMPHET/METH SCREEN,URINE NEGATIVE (NEGATIVE); BARBITURATE SCREEN, URINE NEGATIVE (NEGATIVE); CANNABINOID SCREEN,URINE NEGATIVE (NEGATIVE); COCAINE SCREEN,URINE NEGATIVE (NEGATIVE)
[2025-10-01 13:10] LABS: ADD UA MICROSCOPIC YES
--- NOTE | 2025-10-01 15:55 | HP ---
[facility] HISTORY [facility] PHYSICAL Date of Service: Oct 01, 2025 Time of Service: 15:40 HISTORY OF PRESENT ILLNESS: [This is 85 year old male with past medical history of hypertension, hyperlipidemia, dementia, current smoker who presented to the emergency department with complaints of altered mental status, slurred speech, shuffling gait. Apparently patient was found on the floor around 8:00 a.m. this morning. Patient is a poor historian, daughter at bedside answered most of the questions. According to the report, he was seen normal around 2:00 a.m.. Patient's noticed that patient is unable to hold himself upright. Patient would be sitting on the bed but would fall back. According to the report, patient had a subjective headache and slight fever. In the emergency department, his initial vitals showed temperature of 99.3, pulse 75, respiratory rate 16, blood pressure 140/67, pulse oximetry 97% on room air. His x-ray was done which showed cardiomegaly with pulmonary vascular congestion, aortic ex fascia, no foc al consolidation, pleural effusion or pneumothorax is suggest acute pulmonary parenchymal process. Patient had a CT of the head which showed no acute intracranial findings, right mastoid opacification, suggestive of mastoiditis. Tele neurology was consulted in the emergency department for which Dr. Nuñez indicated that patient had weakness, and since family has concern for shuffling gait, though acute onset and absence of other Parkinson's symptoms make new diagnosis Parkinson's less likely. The plan is no IV thrombolysis or a IA intervention candidate. It could be infectious/metabolic. No other workup unless patient etiology is unclear and symptoms persist.] REVIEW OF SYSTEMS CONSTITUTIONAL: Denies fevers, chills, or night sweats. No unintentional weight loss reported. NEUROLOGICAL: Denies headache, amaurosis fugax, motor weakness, sensory deficit, vertigo/spinning sensation, gait abnormalities, or tremors. ENT: No hearing loss, otalgia, otorrhea, rhinitis, rhinorrhea, hoarseness, or sore throat. CARDIOVASCULAR: Denies any exertional angina, dyspnea on exertion, orthopnea, paroxysmal nocturnal dyspnea, palpitations, life-threatening arrhythmias, claudication. PULMONARY: Denies any shortness of breath, cough, phlegm/sputum, hemoptysis, pleuritic chest pain. SLEEP: Denies morning headaches, daytime somnolence or napping. Denies diffi culty falling asleep, staying asleep, waking from sleep. Denies knowledge of snoring. GASTROINTESTINAL: Denies any type of dysphagia to either liquids or solids. Denies nausea, vomiting, pyrosis, early satiety, abdominal pain, diarrhea, constipation, or changes in stool consistency or caliber. Denies coffee-ground emesis, hematemesis, hematochezia, or melanotic stools. GENITOURINARY: Denies frequency, urgency, nocturia, hematuria or incontinence (Storage/Irritative symptoms.) Low urinary stream, straining to void, urinary intermittency or hesitancy, splitting of the voiding stream, terminal dribbling. ENDOCRINOLOGIC: Denies polyuria, polydipsia, polyphagia or heat/cold int olerances. HEMATOLOGIC: Denies thrombophilia/previous clots, or coagulopathy/bleeding disorders. ONCOLOGIC: Denies personal history of malignancy. DERMATOLOGIC: Denies rashes or pruritus. PSYCHIATRIC: Denies any suicidal or homicidal ideation. Denies hallucinations. PAST MEDICAL HISTORY: [As noted in the HPI ] PAST SURGICAL HISTORY: [Unable to obtain, patient does not know ] PAST SOCIAL HISTORY: [ Patient lives with his daughter. Patient is a smoker, unknown how many years, patient's daughter reported on a good day it is once stick a day, on a bad day at least half a pack a day. Patient drinks occasionally denies illicit drug use ] FAMILY HISTORY: [ Noncontributory ] Coded Allergies: No Known Allergies (Unverified Allergy, Unknown, 06/19/23) PHYSICAL EXAM GENERAL APPEARANCE: The patient is awake, alert, and oriented, in no acute cardiopulmonary distress. NEUROLOGICAL: Cranial nerves II-XII grossly intact. Motor is 5/5 in bilateral upper and lower extremities proximal to distal. No sensory deficits. HEENT: Face is symmetric. Pupils are equal and reactive. Extraocular movements are intact. NECK: Supple. No JVD. No thyromegaly. No submental, submandibular, pre- /postauricular, occipital or supraclavicular lymphadenopathy. CHEST: Normal chest expansion. No Telemetry. LUNGS: Absence of any rales, rhonchi or any wheezing. CARDIOVASCULAR: Regular. S1 and S2 normal. No appreciable rubs, murmurs or gallops. ABDOMEN: Soft, nontender, and nondistended. There is no rebound, voluntary guarding, or rigidity. : Deferred. No Barboza. EXTREMITIES: Non-edematous and not cyanotic. No clubbing. Good capillary refill. SKIN: No skin breakdown. Vital Sign (Last 24 Hours) 10/01/25 15:10 Temp 98.6 Pulse 76 Resp 18 B/P (MAP) 148/62 Pulse Ox 97 O2 Delivery Room Air* O2 Flow Rate 0 FiO2 21 LABS: Laboratory: Test 10/01/25 12:40 10/01/25 12:33 10/01/25 11:14 10/01/25 10:50 Range/Units Urine Color YELLOW YELLOW Urine Appearance CLEAR CLEAR Urine pH 5.5 5.0-8.0 Urine Specific [place] 1.021 1.001-1.031 Urine Protein 70 H NEGATIVE mg/dL Urine Glucose (UA) NEGATIVE NEGATIVE mg/dL Urine Ketones 5 H NEGATIVE mg/dL Urine Occult Blood LARGE H NEGATIVE Urine Nitrate NEGATIVE NEGATIVE Urine Bilirubin NEGATIVE NEGATIVE mg/dL Urine Urobilinogen 0.2 0.2-1.0 mg/dL Urine Leukocyte Esterase NEGATIVE NEGATIVE Guerda/uL Urine RBC 6-10 H 0-1 /HPF Urine WBC 2-5 H 0-1 /HPF Urine Bacteria None Seen None Seen /HPF Urine Opiates Screen NEGATIVE NEGATIVE Urine Barbiturates Screen NEGATIVE NEGATIVE Urine Phencyclidine Screen NEGATIVE NEGATIVE Urine Amphetamines Screen NEGATIVE NEGATIVE Urine Benzodiazepines Screen NEGATIVE NEGATIVE Urine Cocaine Screen NEGATIVE NEGATIVE Urine Marijuana (THC) Screen NEGATIVE NEGATIVE Ammonia < 10 L 11-32 umol/L White Blood Count 7.1 4.8-10.8 K/uL Red Blood Count 4.90 4.50-6.20 MIL/uL Hemoglobin 15.7 14.0-18.0 g/dL Hematocrit 46.0 42-54 % Mean Corpuscular Volume 93.9 79-99 fL Mean Corpuscular Hemoglobin 32.0 27.0-33.0 pg Mean Corpuscular Hemoglobin Concent 34.1 32.0-36.0 g/dL Red Cell Distribution Width 13.4 11.0-15.5 % Platelet Count 232 130-400 K/uL Mean Platelet Volume 10.0 7.5-10.5 fL Immature Granulocyte % (Auto) 0.7 0-1 % Neutrophils (%) (Auto) 75.7 40.0-77.0 % Lymphocytes (%) (Auto) 13.7 L 21.0-51.0 % Monocytes (%) (Auto) 9.5 3.0-13.0 % Eosinophils (%) (Auto) 0.1 0.0-8.0 % Basophils (%) (Auto) 0.3 0.0-5.0 % Neutrophils # (Auto) 5.4 1.8-7.7 K/uL Lymphocytes # (Auto) 1.0 1.0-4.8 K/uL Monocytes # (Auto) 0.7 0.1-1.0 K/uL Eosinophils # (Auto) 0.01 0.00-0.70 K/uL Basophils # (Auto) 0.02 0.00-0.20 K/uL Absolute Immature Granulocyte (auto 0.05 0-1 K/uL Nucleated Red Blood Cells 0.0 0.0-0.19 % Prothrombin Time 11.4 9.6-11.6 SEC Prothromb Time International Ratio 1.08 0.85-1.15 Activated Partial Thromboplast Time 30.8 26.3-35.5 SEC Sodium Level 136 136-145 mmol/L Potassium Level 3.7 3.5-5.1 mmol/L Chloride Level 100 L 101-111 mmol/L Carbon Dioxide Level 27 21-32 mmol/L Blood Urea Nitrogen 7 7-18 mg/dL Creatinine 0.8 0.5-1.3 mg/dL Glomerular Filtration Rate Calc 88 >90 mL/min Random Glucose 144 H 70-105 mg/dL Total Calcium 9.3 8.5-10.1 mg/dL Total Creatine Kinase 106 21-232 U/L Troponin I High Sensitivity 25 4-75 ng/L LDL Cholesterol 77 0-99 mg/dL Whole Blood Glucose 143 H 70-110 MG/DL DIAGNOSTICS / RADIOLOGY: [place] [address] [address] IMAGING REPORT Signed PATIENT: TAMIR OWUSU MR#: [id number] : 1940 SEX: M AGE: 85 LOCATION: [facility] ORDER [id number] STATUS: REG ER REPORT#: [id number] SERVICE 1056 REASON: STROKE ORDERING PHYSICIAN: JOSEPH DE LEON CNP PROCEDURE: CXR1VW - CHEST 1VW STUDY CR chest, 1 view. HISTORY Stroke. TECHNIQUE Single frontal radiograph of the chest. COMPARISON None provided. FINDINGS LUNGS No focal consolidation, pulmonary mass, or acute airspace infiltrate is identified. No nenita pulmonary edema is seen. PLEURAL SPACES No pleural effusion or pneumothorax is demonstrated. MEDIASTINUM Cardiac silhouette is enlarged, compatible with cardiomegaly. Mediastinal contours are within normal limits. Pulmonary rebeka appear prominent with increased pulmonary vascular markings, compatible with pulmonary vascular congestion. Thoracic aorta is tortuous and ectatic. BONES No acute osseous abnormality is identified. Visualized soft tissues are unremarkable. IMPRESSION * Cardiomegaly with pulmonary vascular congestion. * Aortic ectasia. * No focal consolidation, pleural effusion, or pneumothorax to suggest acute pulmonary parenchymal process. /[place] DICTATED BY: PATT LLAMAS Jr., MD DATE: 10/01/251316 ELECTRONICALLY SIGNED BY: PATT LLAMAS Jr., MD DATE: 10/01/251316 [place] [address] IMAGING REPORT Signed PATIENT: TAMIR OWUSU MR#: [id number] : 1940 SEX: M AGE: 85 LOCATION: [facility] ORDER [id number] STATUS: REG ER REPORT#: [id number] SERVICE 1051 REASON: SLURRED SPEECH, APPARENT FALL, WEAKNESS, CONFUSED ORDERING PHYSICIAN: GANESH LEVIN MD PROCEDURE: HEAD WO - CT HEAD/BRAIN W/O CONTRAST EXAM: CT Head Without IV contrast. CLINICAL HISTORY: SLURRED SPEECH, APPARENT FALL, WEAKNESS, CONFUSED TECHNIQUE: Axial computed tomography images of the head/brain without intravenous contrast. COMPARISON: None provided. FINDINGS: BRAIN: Age-related neuroparenchymal atrophy. Multiple bilateral periventricular hypodensities, suggestive of chronic ischemic changes. No evidence of acute hemorrhage. No mass lesion. No CT evidence for acute territorial infarct. No midline shift or extra-axial collections. VENTRICLES: No hydrocephalus. ORBITS: The orbits are unremarkable. SINUSES AND MASTOIDS: Opacification of right mastoid air cells, suggestive of mastoiditis. The paranasal sinuses are clear. BONES: No fracture. SOFT TISSUES: Unremarkable. IMPRESSION: 1. No acute intracranial findings. 2. Right mastoid opacification, suggestive of mastoiditis. /[place] DICTATED BY: PATT LLAMAS Jr., MD DATE: 10/01/251227 ELECTRONICALLY SIGNED BY: PATT LLAMAS Jr., MD DATE: 10/01/251227 ] ASSESSMENT: [Acute metabolic encephalopathy metabolic versus infectious, POA Status post fall, POA Hyperglycemia, POA Chronic condition: Hypertension, dementia, hyperlipidemia ] PLAN: [Patient will be admitted in the medical telemetry Patient will be worked up for ultrasound of the carotid bilaterally ordered Appreciate recommendations from tele neuro We will order lipid panel and hemoglobin A1c 2D echo will be ordered We will request his home medications GI and DVT prophylaxis PT to eval and treat Speech to eval and treat We will keep we will for now Patient will have nicotine patch daily We will continue supportive care: Prn medications for pain, nausea, vomiting Patient is a full code Patient's case discussed with Dr. Pacheco, above plan was formulated ] ADVANCED CARE PLANNING 1. Which of the following were discussed? Hospice Care - Yes / No Therapeutic options - Yes / No Advance Directives - Yes / No Other discussions - 2. Discussed with who? patient 3. Voluntary nature of this service was explained to the patient? Yes / No 4. Amount of time spent - ___20 mins____ 5. Reviewed by Physician? (if this service was performed by NPP) Yes / No ATTESTATION BY PHYSICIAN I have seen and examined the patient. I reviewed the documentation, medical decision making, and treatment plan as noted by the mid-level provider above. I agree with the findings and plan of care. BHAVYA PACHECO MD, [facility] Oct 01, 2025 15:55
--- NOTE | 2025-10-01 16:04 | NUR ---
DCP:HOME Pt currently lives at home with his daughter. Pt does not have any DME, home health, or provider services. Pt does require assistance with completing ADLs and daughter assists him with those tasks. PCP is [facility] and uses the [facility] for any RX needs. At DC pt will want to go home and family can assist with transportation
[2025-10-01 16:15] LABS: LDL DIRECT 71 mg/dL (0-99)
--- NOTE | 2025-10-01 17:19 | HMCIMG ---
EXAM: US Duplex Bilateral Carotid and Vertebral Arteries. CLINICAL HISTORY: r/o stroke TECHNIQUE: Real-time ultrasound scan of the bilateral carotid and vertebral arteries, 2-D catherine scale, with color Doppler flow and spectral waveform analysis. COMPARISON: None provided. FINDINGS: RIGHT COMMON CAROTID ARTERY: Calcified atherosclerotic plaque is noted at the bifurcation of the right common carotid artery. Peak systolic velocity measures approximately 88 cm/sec. No complete occlusion is seen. RIGHT INTERNAL CAROTID ARTERY: Extension of calcified plaque into the proximal internal carotid artery is noted. Peak systolic velocity measures approximately 104 cm/sec. No critical occlusion is identified. RIGHT EXTERNAL CAROTID ARTERY: Calcified plaque extends into the proximal external carotid artery with significantly elevated peak systolic velocity measuring approximately 303 cm/sec, suggestive of hemodynamically significant stenosis. RIGHT VERTEBRAL ARTERY: Antegrade flow is noted. Peak systolic velocity measures approximately 66 cm/sec. RIGHT ICA/CCA RATIO: Approximately 1.2. LEFT COMMON CAROTID ARTERY: Calcified heterogeneous atherosclerotic plaque is noted at the bifurcation of the left common carotid artery. Peak systolic velocity measures approximately 80 cm/sec. No occlusion is seen. LEFT INTERNAL CAROTID ARTERY: Plaque extends into the proximal internal carotid artery. Peak systolic velocity measures approximately 163 cm/sec, suggestive of moderate stenosis. LEFT EXTERNAL CAROTID ARTERY: Extension of plaque into the proximal external carotid artery is noted with peak systolic velocity measuring approximately 175 cm/sec, suggestive of stenosis. LEFT VERTEBRAL ARTERY: Antegrade flow is noted. Peak systolic velocity measures approximately 60 cm/sec. LEFT ICA/CCA RATIO: Approximately 2.0. SOFT TISSUES: No incidental soft tissue abnormalities are noted. IMPRESSION: Possible 50 to 69% stenosis of the left internal carotid artery. Mild stenosis at the right external carotid artery. /[place]
--- NOTE | 2025-10-01 18:02 | NUR ---
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
--- NOTE | 2025-10-01 19:24 | NUR ---
PT CARE ASSUMED AT THIS TIME
--- NOTE | 2025-10-01 22:51 | NUR ---
TRANSFERRED CARE TO [facility] AT THIS TIME
[2025-10-02] VITALS (9 sets, daily range): BP systolic 108–158; BP diastolic 47–68; PULSE 65–84; RESP 18–21; TEMP 98.6–103.2; O2SAT 94–99
[2025-10-02 00:38] LABS: RAPID GROUP A STREP negative (NEGATIVE)
[2025-10-02 00:49] LABS: COVID19 (SARS ANTIGEN RAPID) PRESUMPTIVE NEGATIVE (NEGATIVE); INFLUENZA TYPE B Negative For Type B (NEGATIVE)
[2025-10-02 00:52] LABS: INFLUENZA TYPE A Positive For Type A (NEGATIVE)
[2025-10-02] MEDS: 0.9%NACL 1000ML 1,000 ML IV SCH (07:00)
[2025-10-02 08:03] LABS: IMMATURE GRANULOCYTE ABSOLUTE 0.04 K/uL (0-1); NUCLEATED RED BLOOD CELLS 0.0 % (0.0-0.19); PLATELET COUNT (AUTO) 201 K/uL (130-400); RED BLOOD CELL COUNT(AUTO) 4.74 MIL/uL (4.50-6.20); RED CELL DISTRIBUTION WIDTH 13.6 % (11.0-15.5); WHITE BLOOD COUNT (AUTO) 6.6 K/uL (4.8-10.8)
[2025-10-02 09:03] LABS: ASPARTATE AMINOTRANSFERASE 18.0 U/L (10-37); CREATININE 0.8 mg/dL (0.5-1.3); GLOMERULAR FILTR. RATE CALC 88.0 mL/min (>90); GLUCOSE,RANDOM 140.0 mg/dL (70-105); SODIUM SERUM 136.0 mmol/L (136-145); TOTAL PROTEIN, SERUM 7.1 g/dL (6.0-8.3); UREA NITROGEN, BLOOD 8.0 mg/dL (7-18)
[2025-10-02] MEDS: OSELTAMIVIR PHOSPHATE 75 MG CAP PO SCH (09:46)
[2025-10-02] MEDS: NICOTINE 14 MG/ 24 HR PATCH TD SCH (09:46)
[2025-10-02] MEDS ORDERED: COMPOUND IV REFRIGERATED 1 EACH IVSOLN MISC PRN (12:30)
[2025-10-02 12:31] LABS: ABG BASE EXCESS 0.0 mmol/L (-2.0-3.0); ABG HCO3 23.1 mmol/L (21.0-28.0); ABG OXYGEN SATURATION 93.4 % (94.0-98.0); ABG PCO2 33 mmHg (35-48); ABG PH 7.461 (7.350-7.450); PO2, ARTERIAL BG 62.8 mmHg (83.0-108.0); TEMPERATURE, CELSIUS BG 37.0 CELSIUS (35.5-37.0); VENT MODE, BG RA (ROOM AIR)
--- NOTE | 2025-10-02 13:30 | NUR ---
HOLD PER NURSE JUDY.
--- NOTE | 2025-10-02 14:48 | PN ---
[facility] PROGRESS NOTE Date of Service: Oct 02, 2025 Time of Service: 14:43 SUBJECTIVE: 10/02 patient remains admitted to medical floor, seen and examined at bedside, the time of my visit the patient is comfortably in bed, not agitated, not combative. Daughter is at the bedside during my visit, the patient with advanced dementia, however he is usually more awake. Upon evaluation the patient withdrawing to painful stimulation, he was able to open eyes, open the mouth and showed the tongue. He is withdrawing to painful stimulation. We will looks dehydrated. BP 158/68, he has been spiking fever 102.6. Saturating normal on room air. CBC is unremarkable. Potassium level 3.3. Serology test positive for influenza type A. CT head done, no acute intracranial finding, right mastoid opacification suggestive of mastoiditis. Patient remains on respiratory isolation, continue Tamiflu 75 mg p.o. b.i.d.. Add Rocephin 1 g IV daily. Results of CT of the head discussed with the daughter, all questions answered. We will also do multivitamin 75 mL/hours, follow ABG, glucose level, clear liquid diet if able to tolerate. Follow a.m. labs. REVIEW OF SYSTEMS CONSTITUTIONAL: Denies fevers, chills, or night sweats. No unintentional weight loss reported. NEUROLOGICAL: Denies headache, amaurosis fugax, motor weakness, sensory deficit, vertigo/spinning sensation, gait abnormalities, or tremors. ENT: No hearing loss, otalgia, otorrhea, rhinitis, rhinorrhea, hoarseness, or sore throat. CARDIOVASCULAR: Denies any exertional angina, dyspnea on exertion, orthopnea, paroxysmal nocturnal dyspnea, palpitations, life-threatening arrhythmias, claudication. PULMONARY: Denies any shortness of breath, cough, phlegm/sputum, hemoptysis, pleuritic chest pain. SLEEP: Denies morning headaches, daytime somnolence or napping. Denies difficulty falling asleep, staying asleep, waking from sleep. Denies knowledge of snoring. GASTROINTESTINAL: Denies any type of dysphagia to either liquids or solids. Denies nausea, vomiting, pyrosis, early satiety, abdominal pain, diarrhea, constipation, or changes in stool consistency or caliber. Denies coffee-ground emesis, hematemesis, hematochezia, or melanotic stools. GENITOURINARY: Denies frequency, urgency, nocturia, hematuria or incontinence (Storage/Irritative symptoms.) Low urinary stream, straining to void, urinary intermittency or hesitancy, splitting of the voiding stream, terminal dribbling. ENDOCRINOLOGIC: Denies polyuria, polydipsia, polyphagia or heat/cold intolerances. HEMATOLOGIC: Denies thrombophilia/previous clots, or coagulopathy/bleeding disorders. ONCOLOGIC: Denies personal history of malignancy. DERMATOLOGIC: Denies rashes or pruritus. PSYCHIATRIC: Denies any suicidal or homicidal ideation. Denies hallucinations. PHYSICAL EXAM GENERAL APPEARANCE: The patient is awake, alert, and oriented, in no acute cardiopulmonary distress. NEUROLOGICAL: Cranial nerves II-XII grossly intact. Motor is 5/5 in bilateral upper and lower extremities proximal to distal. No sensory deficits. HEENT: Face is symmetric. Pupils are equal and reactive. Extraocular movements are intact. NECK: Supple. No JVD. No thyromegaly. No submental, submandibular, pre- /postauricular, occipital or supraclavicular lymphadenopathy. CHEST: Normal chest expansion. No Telemetry. LUNGS: Absence of any rales, rhonchi or any wheezing. CARDIOVASCULAR: Regular. S1 and S2 normal. No appreciable rubs, murmurs or gallops. ABDOMEN: Soft, nontender, and nondistended. There is no rebound, voluntary guarding, or rigidity. : Deferred. No Barboza. EXTREMITIES: Non-edematous and not cyanotic. No clubbing. Good capillary refill. SKIN: No skin breakdown. Vital Signs (last 8hr) Date Time Temp Pulse Resp B/P (MAP) Pulse Ox O2 Delivery O2 Flow Rate FiO2 10/02/25 08:00 99.0 73 18 158/68 94 Room Air 10/02/25 08:00 Room Air* 0 21 LABS: Laboratory: Test 10/02/25 14:15 10/02/25 12:29 10/02/25 12:09 10/02/25 06:31 Range/Units Ammonia < 10 L 11-32 umol/L Blood Gas Specimen Type Arterial Arterial Blood pH 7.461 H 7.350-7.450 Arterial Blood Partial Pressure CO2 33 L 35-48 mmHg Arterial Blood Partial Pressure O2 62.8 L 83.0-108.0 mmHg Arterial Blood HCO3 23.1 21.0-28.0 mmol/L Arterial Blood Oxygen Saturation 93.4 L 94.0-98.0 % Arterial Blood Base Excess 0.0 -2.0-3.0 mmol/L Blood Gas Temperature 37.0 35.5-37.0 CELSIUS Blood Gas Vent Mode RA ROOM AIR FiO2 21.0 % Blood Gas Specimen Comment RR JUDY Whole Blood Glucose 149 H 70-110 MG/DL White Blood Count 6.6 4.8-10.8 K/uL Red Blood Count 4.74 4.50-6.20 MIL/uL Hemoglobin 15.2 14.0-18.0 g/dL Hematocrit 44.4 42-54 % Mean Corpuscular Volume 93.7 79-99 fL Mean Corpuscular Hemoglobin 32.1 27.0-33.0 pg Mean Corpuscular Hemoglobin Concent 34.2 32.0-36.0 g/dL Red Cell Distribution Width 13.6 11.0-15.5 % Platelet Count 201 130-400 K/uL Mean Platelet Volume 10.0 7.5-10.5 fL Immature Granulocyte % (Auto) 0.6 0-1 % Neutrophils (%) (Auto) 71.8 40.0-77.0 % Lymphocytes (%) (Auto) 16.6 L 21.0-51.0 % Monocytes (%) (Auto) 10.4 3.0-13.0 % Eosinophils (%) (Auto) 0.3 0.0-8.0 % Basophils (%) (Auto) 0.3 0.0-5.0 % Neutrophils # (Auto) 4.8 1.8-7.7 K/uL Lymphocytes # (Auto) 1.1 1.0-4.8 K/uL Monocytes # (Auto) 0.7 0.1-1.0 K/uL Eosinophils # (Auto) 0.02 0.00-0.70 K/uL Basophils # (Auto) 0.02 0.00-0.20 K/uL Absolute Immature Granulocyte (auto 0.04 0-1 K/uL Nucleated Red Blood Cells 0.0 0.0-0.19 % Sodium Level 136 136-145 mmol/L Potassium Level 3.3 L 3.5-5.1 mmol/L Chloride Level 100 L 101-111 mmol/L Carbon Dioxide Level 27 21-32 mmol/L Blood Urea Nitrogen 8 7-18 mg/dL Creatinine 0.8 0.5-1.3 mg/dL Glomerular Filtration Rate Calc 88 >90 mL/min Random Glucose 140 H 70-105 mg/dL Total Calcium 8.4 L 8.5-10.1 mg/dL Magnesium Level 1.90 1.80-2.40 mg/dL Total Bilirubin 0.7 0.2-1.0 mg/dL Aspartate Amino Transf (AST/SGOT) 18 10-37 U/L Alanine Aminotransferase (ALT/SGPT) 30 12-78 U/L Alkaline Phosphatase 90 50-136 U/L Total Protein 7.1 6.0-8.3 g/dL Albumin 3.4 L 3.5-5.0 g/dL Test 10/02/25 00:20 10/01/25 12:40 10/01/25 12:33 10/01/25 11:14 Range/Units Influenza Type A Antigen Positive For Type A *A NEGATIVE Influenza Type B Antigen Negative For Type B NEGATIVE SARS-CoV-2 Antigen (Rapid) PRESUMPTIVE NEGATIVE NEGATIVE Group A Streptococcus Rapid negative NEGATIVE Urine Color YELLOW YELLOW Urine Appearance CLEAR CLEAR Urine pH 5.5 5.0-8.0 Urine Specific [place] 1.021 1.001-1.031 Urine Protein 70 H NEGATIVE mg/dL Urine Glucose (UA) NEGATIVE NEGATIVE mg/dL Urine Ketones 5 H NEGATIVE mg/dL Urine Occult Blood LARGE H NEGATIVE Urine Nitrate NEGATIVE NEGATIVE Urine Bilirubin NEGATIVE NEGATIVE mg/dL Urine Urobilinogen 0.2 0.2-1.0 mg/dL Urine Leukocyte Esterase NEGATIVE NEGATIVE Guerda/uL Urine RBC 6-10 H 0-1 /HPF Urine WBC 2-5 H 0-1 /HPF Urine Bacteria None Seen None Seen /HPF Urine Opiates Screen NEGATIVE NEGATIVE Urine Barbiturates Screen NEGATIVE NEGATIVE Urine Phencyclidine Screen NEGATIVE NEGATIVE Urine Amphetamines Screen NEGATIVE NEGATIVE Urine Benzodiazepines Screen NEGATIVE NEGATIVE Urine Cocaine Screen NEGATIVE NEGATIVE Urine Marijuana (THC) Screen NEGATIVE NEGATIVE Triglycerides Level 163 30-200 mg/dL Cholesterol Level 135 <200 mg/dL LDL Cholesterol 71 0-99 mg/dL HDL Cholesterol 33 29-71 mg/dL Prothrombin Time 11.4 9.6-11.6 SEC Prothromb Time International Ratio 1.08 0.85-1.15 Activated Partial Thromboplast Time 30.8 26.3-35.5 SEC Hemoglobin A1c 6.1 H 4.0-6.0 % Estimated Average Glucose (eAG) 128 H 70-126 mg/dL Total Creatine Kinase 106 21-232 U/L Troponin I High Sensitivity 25 4-75 ng/L Current Medications Medications (Trade) Dose Ordered Sig/Gianna Route PRN Reason Start Time Stop Time Status Last Admin Dose Admin Acetaminophen (TYLenol 325MG TAB) 650 mg Q6H PRN PO MILD PAIN (1-3) 10/02/25 11:00 11/01/25 10:59 Acetaminophen (Tylenol 325mg Suppository) 650 mg Q4H PRN RC TEMPERATURE GREATER THAN 101.5 10/01/25 15:30 10/31/25 15:29 10/01/25 22:58 650 MG Acetaminophen (Tylenol 325mg Suppository) 650 mg Q6H PRN RC MILD PAIN (1-3) 10/01/25 15:30 10/31/25 15:29 Amlodipine Besylate (NorvASC 5MG TAB) 5 mg DAILY PO 10/02/25 11:00 11/01/25 10:59 Ceftriaxone Sodium (ROCEphine 1G INJ) 1 gm Q24H IVPB 10/02/25 11:00 10/12/25 10:59 Hydralazine HCl (APRESOLine 20MG INJ) 5 mg Q6H PRN IV ADMINISTER FOR SBP > 160 10/02/25 11:00 11/01/25 10:59 Multivitamins/ Minerals 10 ml/ Folic Acid 1 mg/ Thiamine HCl 100 mg/Sodium Chloride 1,000 ml @ 75 mls/hr DAILY IV 10/03/25 09:00 10/02/25 14:15 DC Multivitamins/ Minerals 10 ml/ Folic Acid 1 mg/ Thiamine HCl 100 mg/Sodium Chloride 1,000 ml @ 75 mls/hr Q24H IV 10/02/25 15:00 10/05/25 04:19 Nicotine (Nicoderm) 14 mg DAILY TD 10/02/25 09:00 11/01/25 08:59 10/02/25 09:46 14 MG Ondansetron HCl (zoFRAN 4MG INJ) 4 mg Q6H PRN IVP NAUSEA/VOMITING 10/01/25 15:30 10/31/25 15:29 Oseltamivir Phosphate (Tamiflu) 75 mg BID PO 10/02/25 09:00 10/07/25 08:59 10/02/25 09:46 75 MG Sodium Chloride 1,000 ml @ 100 mls/hr Q10H IV 10/02/25 06:30 11/01/25 06:29 10/02/25 07:00 100 MLS/HR DIAGNOSTICS / RADIOLOGY: [ ] ASSESSMENT: Acute metabolic encephalopathy metabolic POA Sepsis, POA Upper respiratory infection, secondary to influenza type a, POA Right mastoiditis, POA Status post fall, POA Hyperglycemia, POA Chronic condition: Hypertension, dementia, hyperlipidemia Advanced dementia Mild malnutrition, POA PLAN: patient remains admitted to medical floor, seen and examined at bedside, the time of my visit the patient is comfortably in bed, not agitated, not combative. Daughter is at the bedside during my visit, the patient with advanced dementia, however he is usually more awake. Upon evaluation the patient withdrawing to painful stimulation, he was able to open eyes, open the mouth and showed the tongue. He is withdrawing to painful stimulation. We will looks dehydrated. BP 158/68, he has been spiking fever 102.6. Saturating normal on room air. CBC is unremarkable. Potassium level 3.3. Serology test positive for influenza type A. CT head done, no acute intracranial finding, right mastoid opacifica tion suggestive of mastoiditis. Patient remains on respiratory isolation, continue Tamiflu 75 mg p.o. b.i.d.. Add Rocephin 1 g IV daily. Results of CT of the head discussed with the daughter, all questions answered. We will also do multivitamin 75 mL/hours, follow ABG, glucose level, clear liquid diet if able to tolerate. Follow a.m. labs. NEURO: Minimize central acting medications as possible. Fall Precautions. Well lighted room through the day and minimize interruptions through the night to prevent acute delirium. PULMONARY: Supplemental 02 as needed BiPAP as necessary, for respiratory distress Titrate Fio2 to keep Spo2 > or = 90% DuoNebs and CPT as needed IS hourly while awake for pulmonary hygiene prn Out of bed to chair as tolerated Maintain aspiration precautions at all times CARDIOVASCULAR: Follow hemodynamics. Vital signs per facility protocol GI & NUTRITION: Continue nutritional support Aspirations precautions Prokinetic agents and laxatives as needed KIDNEYS & ELECTROLYTES: Strict monitoring of intake and output Daily weights Avoid nephrotoxic agents Monitor electrolytes and replace as needed Goal urine output of 30mL/hr or 0.5mL/kg/hr Medications to be dosed according to renal function. Avoid contrast if possible ENDOCRINE: Maintain blood glucose between 100-180 at all times. Insulin sliding scale for blood glucose management Hypoglycemia and hyperglycemia protocol in place INFECTIOUS DISEASE: Trend temperature, WBC and procalcitonin level Follow cultures, deescalate antibiotics as soon as possible. Panculture if new onset fever HEMATOLOGY & COAGULATION: Monitor H&H. Keep Hgb > 7 Transfuse 1 unit of PRBC for Hgb < 7 Transfuse 1 pack of platelets of platelets < 20, 000 Watch for any signs and symptoms of bleeding SKIN: Pressure ulcer prevention per facility protocol Specialty mattress as needed ORTHO/REHAB Continue PT/OT PRN: MEDICATIONS Tylenol 650 mg po every 4 hrs for fever zofran 4 mg IV every 6 hrs for n/v Hydralazine 5 mg IV every 4 hrs systolic pressure > 160 bowel regiment: lactulose 20 gm PO BID PRN constipation Supportive measures: Continue GI and DVT prophylaxis Disposition: Pending improvement in clinical condition All questions answered time spent: > 35 min BHAVYA SANTILLAN MD Oct 02, 2025 14:47
[2025-10-02 15:31] LABS: NUCLEATED RED BLOOD CELLS 0.0 % (0.0-0.19); PLATELET COUNT (AUTO) 134.0 K/uL (130-400); RED BLOOD CELL COUNT(AUTO) 5.02 MIL/uL (4.50-6.20); RED CELL DISTRIBUTION WIDTH 13.5 % (11.0-15.5); WHITE BLOOD COUNT (AUTO) 10.4 K/uL (4.8-10.8)
[2025-10-02 15:33] LABS: ASPARTATE AMINOTRANSFERASE 22.0 U/L (10-37); CREATININE 0.8 mg/dL (0.5-1.3); GLOMERULAR FILTR. RATE CALC 88.0 mL/min (>90); GLUCOSE,RANDOM 139.0 mg/dL (70-105); SODIUM SERUM 134.0 mmol/L (136-145); TOTAL PROTEIN, SERUM 7.4 g/dL (6.0-8.3); UREA NITROGEN, BLOOD 9.0 mg/dL (7-18)
[2025-10-02] MEDS: M.V.I. IV [ADULT] 10 ML, FOLic ACID 5 MG/ML VIAL 1 MG, THIAMINE HCL 100 MG in 0.9%NACL ... IV SCH (15:59)
[2025-10-02] MEDS: amLODIPine 5 MG TAB PO SCH (16:02)
[2025-10-02] MEDS: PoTASSium chloRIDE 20MEQ ER 20 MEQ ERTAB PO ONE (16:03)
--- NOTE | 2025-10-02 16:03 | NUR ---
POTASSIUM POTASSIUM GIVEN VIA IV ROUTE PATIENT NOT CURRENTLY TAKING MEDS PO
[2025-10-02] MEDS: ZOSYN 3.375GM +NS 50ML IV SCH (17:00)
[2025-10-02] MEDS ORDERED: VANCOMYCIN PROTOCOL PER PHARMACY IV SCH ×2 (17:00)
[2025-10-02 17:23] LABS: ABG BASE EXCESS -0.3 mmol/L (-2.0-3.0); ABG HCO3 23.4 mmol/L (21.0-28.0); ABG OXYGEN SATURATION 96.7 % (94.0-98.0); ABG PCO2 36 mmHg (35-48); ABG PH 7.434 (7.350-7.450); PO2, ARTERIAL BG 84.6 mmHg (83.0-108.0); TEMPERATURE, CELSIUS BG 37.0 CELSIUS (35.5-37.0); VENT MODE, BG 6 L NC (ROOM AIR)
--- NOTE | 2025-10-02 18:15 | HMCIMG ---
EXAM: CT SCAN OF THE CHEST, ABDOMEN, AND PELVIS WITHOUT CONTRAST Clinical statement: Possible pneumonia. STUDY PROTOCOL: CT radiation dose protocol was performed in accordance with the principles of ALARA. A multislice CT scan of the chest, abdomen, and pelvis was done without intravenous contrast. Sections were obtained from the thoracic inlet through the pelvis. RADIATION DOSE: Not provided. CONTRAST: No intravenous contrast administered. COMPARISON: Chest radiograph from 10/01/2025. FINDINGS: CHEST: Soft tissues: No anterior chest wall mass or axillary lymphadenopathy is identified. Lungs and large airways: Tracheobronchial tree is patent. No discrete pulmonary nodule or focal lobar consolidation is seen. Dependent subsegmental atelectasis is present at the lung bases. Pleura: No pleural mass is identified. There are minimal bilateral pleural effusions with associated basilar atelectasis. No pneumothorax. Heart and pericardium: Heart size is mildly enlarged, compatible with mild cardiomegaly. No pericardial effusion is seen. Fxab-do-hwomuhws coronary artery calcifications are present. Aorta: Thoracic aorta is normal in caliber without aneurysm. Mild aortic wall calcifications are present. Lymph nodes: No pathologically enlarged mediastinal or hilar lymph nodes are identified. Mediastinum and rebeka: Mediastinal contours are unremarkable. Hilar structures are within normal limits. Chest wall and lower neck: No chest wall mass or abnormality of the visualized lower neck is seen. Bones/joints: No acute thoracic vertebral or rib fracture is identified. There are healed fractures of the posterior aspects of the left 6th and 7th ribs. Mild degenerative changes are present in the visualized spine. Upper abdomen: Visualized upper abdominal structures are more fully described in the abdomen and pelvis section below. ABDOMEN AND PELVIS: LIVER: Normal size, morphology, and attenuation with smooth margins. No focal hepatic lesion or calcification is seen. No intrahepatic or extrahepatic biliary ductal dilatation is identified. Jordon hepatis is unremarkable. Portal vein, hepatic veins, and IVC are normal in caliber. GALL BLADDER: Normal wall thickness and smooth contour. Lumen demonstrates uniform fluid attenuation without visible gallstones, calcifications, or mass. Pericholecystic fat and the cystic duct appear normal. PANCREAS: Normal in size, contour, and attenuation. Main pancreatic duct is not dilated. No peripancreatic fat stranding or fluid collection. SPLEEN: Normal size, morphology, and attenuation without focal lesion. KIDNEYS: Both kidneys are normal in size, shape, position, and attenuation. No renal mass is seen. A simple cyst measuring approximately 16 mm is present in the midpole of the right kidney. A nonobstructing calculus measuring approximately 4 mm is present in the lower calyx of the right kidney and the upper calyx of the left kidney. No hydronephrosis or other CT evidence of obstructive uropathy. GIT /T/ PERITONEAL CAVITY: Small hiatal hernia is present. Stomach is distended but otherwise unremarkable; gastroesophageal junction, pylorus, and duodenum appear normal. Jejunal and ileal loops are normal in caliber and distribution with preserved wall thickness and mucosal pattern. No evidence of acute appendicitis. Large bowel loops are normal in caliber without wall thickening or pericolic inflammatory changes. No free intraperitoneal fluid or free air is identified. Mesenteric fat and omentum are normal. LYMPHNODES: No pathologically enlarged abdominal or pelvic lymph nodes are identified. RETROPERITONEUM: Both adrenal glands are normal in morphology and attenuation. Aorta and IVC are normal in position and caliber with mild aortic wall calcification. No retroperitoneal mass or hematoma. MUSCULOSKELETAL: Degenerative changes are present in the dorsolumbar spine with multilevel spondylosis. No acute osseous abnormality. OTHER: Extra-abdominal and paraspinal soft tissues are unremarkable. IMPRESSION: * Minimal bilateral pleural effusions with associated dependent basilar atelectasis and mild cardiomegaly, without CT evidence of lobar consolidation or a focal pneumonia. In the clinical context of suspected pneumonia, these findings may reflect volume status or early/treated infection; correlate with clinical course, laboratory markers, and prior chest radiographs. * Nonobstructing 4 mm calculus in the lower calyx of the right kidney and upper calyx of the left kidney and a simple 16 mm right midpole renal cyst, without hydronephrosis or CT evidence of obstructive uropathy. * Small hiatal hernia and multilevel degenerative changes in the thoracic and lumbar spine with healed fractures of the posterior left 6th and 7th ribs, compatible with chronic changes. * Mild cardiomegaly with [id number] coronary artery calcifications and mild aortic atherosclerotic calcification, consistent with chronic atherosclerotic cardiovascular disease. * Compared with the chest radiograph from 10/01/2025, which raised concern for possible pneumonia, the current noncontrast CT shows minimal effusions and basilar atelectasis without focal consolidation, suggesting no CT-confirmed lobar pneumonia at this time; interval change may reflect evolving or treated cardiopulmonary process, and continued clinical and radiographic follow-up should be guided by symptoms and examination findings. /Ruby
[2025-10-02] MEDS: VANCOMYCIN 1G/250ML KIT 250 ML IV SCH (19:00)
--- NOTE | 2025-10-02 20:40 | NUR ---
MEDS SHIFT ASSESSMENT DONE, PLEASE REFER TO CHART. PT AWAKENS WITH VERBAL AND TACTILE STIMULI. RE-POSITIONED IN WITH HOB ELEVATED. PO MEDS CRUSHED AND GIVEN WITH LITTLE JELL-O, PT ABLE TO SWALLOW WITHOUT ANY S/SX OF ASPIRATION. CONTINUED BANANA BAG AT 75CC/HR. POTASSIUM IV INFUSED, PHARMACIST YAMILETH CONFIRMED THAT POTASSIUM IS COMPATIBLE WITH BANANA BAG. KEPT COMFORTABLE IN BED. FAMILY AT BEDSIDE. AWAITING BED TO BE CLEANED IN PCCU.
--- NOTE | 2025-10-02 23:30 | NUR ---
TRANSFER PT HAD SEVERAL BOUTS OF LOOSE STOOLS AND WAS CHANGED AND KEPT DRY IN BED. TRIED TO DO AN IN AND OUT FOR URINE SPECIMEN BUT UNABLE TO COLLECT ANY SPECIMEN. FIXED PT IN BED FOR TRANSFER. [facility] PT TRANSFERRED TO ROOM 223 FOR MORE CARE AND MANAGEMENT.
[2025-10-03] VITALS (10 sets, daily range): BP systolic 118–139; BP diastolic 52–91; PULSE 57–71; RESP 16–20; TEMP 96.8–104; O2SAT 93–97
--- NOTE | 2025-10-03 07:58 | HMCIMG ---
EXAMINATION: SPECTRAL DOPPLER ULTRASOUND EXAMINATION OF THE BILATERAL LOWER EXTREMITY VEINS. CLINICAL HISTORY: To rule out DVT. COMPARISON: None provided. TECHNIQUE: Real-time ultrasound scan of the veins of the bilateral lower extremity with color Doppler flow, spectral waveform analysis and compression. FINDINGS: DEEP VEINS: The common femoral, superficial femoral, and popliteal veins are echolucent and compressible. There is normal color Doppler flow throughout. The visualized calf veins appear patent. SUPERFICIAL VEINS: The proximal greater saphenous veins are patent and compressible. SOFT TISSUES: No popliteal fossa cyst or other abnormalities. IMPRESSION: No deep venous thrombosis evident in the bilateral lower extremity. No superficial thrombophlebitis in the bilateral lower extremity. /Fulda
--- NOTE | 2025-10-03 08:12 | HMCSR ---
APPROVED REPORT EXAM: Two-dimensional and M-mode echocardiogram with Doppler and color Doppler. INDICATION ICD: Rule out stroke Contrast Details Indication: Rule out PFO Agent/Amount Used: Agitated Saline 2D Dimensions RVDd 3.5 cm LVEF(%) 52.8 (>50%) LVED Vol(simp.) 54.0 mL IVSd 1.3 (0.7-1.1cm) FS(%) 27 % LVES Vol(simp.) 22.0 mL LVDd 4.6 (3.8-5.6cm) LA (2D) 4.1 (1.6-4.0cm) LVEF(%, simp.) 59 % PWd 0.7 (0.7-1.1cm) Ao Root(2D) 3.4 (2.0-3.7cm) LA ESV INDEX (BP) 21.35 mL/m2 IVSs 1.5 cm LVOT diam 1.8 (1.8-2.4cm) LVDs 3.4 (2.5-4.0cm) IVC diam 1.4 cm PWs 1.3 cm Deformation Strain Apical 4 -16.1 % Apical 2 -11.1 % Apical 3 -13.7 % Global Strain -13.7 % M-Mode Dimensions EPSS 0.6 cm LA (MM) 4.7 (1.6-4.0cm) Ao Root(MM) 3.2 (2.0-3.7cm) Aortic Valve AoV Vmax 1.5 m/s Ao Peak GR 8.7 mmHg LVOT Vmax 1.3 m/s AoV VTI 0.3 m Ao Mean GR 4.4 mmHg LVOT VTI 0.24 m GIGI (VMAX) 2.42 cm2 GIGI (VTI) 2.5 cm2 Mitral Valve MV E Vmax 51.8 cm/s DECEL Time 250 ms MV A Vmax 84.9 cm/s P 1/2 T 65 ms E/A ratio 0.6 MVA (PHT) 3.4 cm2 TDI E/E' Medial 17.0 E/E' Lateral 14.1 Medial E' Peak V 3.04 cm/s Lateral E' Peak V 3.68 cm/s Pulmonary Valve PV Vmax 1.2 m/s PV Mean GR 2.6 mmHg PV Peak GR 6.2 mmHg Tricuspid Valve TR Vmax 2.4 m/s RAP (EST) 3 mmHg RVSP 27.0 mmHg TR Peak GR 24.0 mmHg Left Ventricle The left ventricle is normal size. GLS -14.0% There is normal LV segmental wall motion. Moderate concentric left ventricular hypertrophy. The LVEF is 55-60%. Stage I diastolic dysfunction. Right Ventricle The right ventricle is normal size. The right ventricular systolic function is normal. Atria The left atrium size is normal. Negative bubble study. No evidence of PFO by color flow Doppler and agitated saline. The right atrium size is normal. Aortic Valve Midly thickened aortic valve leaflet. Trace aortic regurgitation is present. There is no aortic valvular stenosis. Mitral Valve The mitral valve is normal in structure. There is trace of mitral valve regurgitation noted. There is no mitral valve stenosis. Tricuspid Valve The tricuspid valve is normal in structure. There is trace of tricuspid valve regurgitation noted. Pulmonic Valve The pulmonary valve is normal in structure. There is no pulmonic valvular regurgitation. Great Vessels The aortic root is normal in size. The IVC is normal in size and collapses >50% with inspiration. Pericardium There is no pericardial effusion. Other Information Quality : Adequate Conclusion The LVEF is 55-60%. Stage I diastolic dysfunction. Negative bubble study. No evidence of PFO by color flow Doppler and agitated saline. Trace aortic regurgitation is present.
--- NOTE | 2025-10-03 08:30 | NUR ---
TEMP RECORDED 104.0 AT 0325 WAS INCORRECT... TEMP WAS 100.4 Addendum: 10/03/25 at 1044 by CHRISTINE LOPEZ RN RN Amended: Links added.
[2025-10-03] MEDS ORDERED: M.V.I. IV [ADULT] 10 ML, FOLic ACID 5 MG/ML VIAL 1 MG, THIAMINE HCL 100 MG in 0.9%NACL ... IV SCH (09:00)
[2025-10-03] MEDS: FISH OIL 1000 MG/CAP PO SCH (09:09)
--- NOTE | 2025-10-03 09:22 | NUR ---
BEDSIDE DYSPHAGIA EVALUATION COMPLETED. -S/S OF ASPIRATION. RECOMMEND MINCED & MOIST, THIN LIQUIDS; PILLS WHOLE ONE AT A TIME. RESULTS AND RECOMMENDATIONS PROVIDED TO DAUGHTER AT BEDSIDE. APPLICATION OPERATIONS ENGINEER COORDINATED WITH ROSE KING. PER DAUGHTER, RECOMMENDED DIET IS PATIENT'S BASELINE DIET. SKILLED SPEECH THERAPY IS NOT RECOMMENDED AT THIS TIME.
[2025-10-03] MEDS: DOXYCYCLINE HYCLATE 100 MG TABLET PO SCH (12:37)
--- NOTE | 2025-10-03 13:05 | PN ---
[facility] PROGRESS NOTE Date of Service: Oct 03, 2025 Time of Service: 13:02 SUBJECTIVE: 10/02 patient remains admitted to medical floor, seen and examined at bedside, the time of my visit the patient is comfortably in bed, not agitated, not combative. Daughter is at the bedside during my visit, the patient with advanced dementia, however he is usually more awake. Upon evaluation the patient withdrawing to painful stimulation, he was able to open eyes, open the mouth and showed the tongue. He is withdrawing to painful stimulation. We will looks dehydrated. BP 158/68, he has been spiking fever 102.6. Saturating normal on room air. CBC is unremarkable. Potassium level 3.3. Serology test positive for influenza type A. CT head done, no acute intracranial finding, right mastoid opacification suggestive of mastoiditis. Patient remains on respiratory isolation, continue Tamiflu 75 mg p.o. b.i.d.. Add Rocephin 1 g IV daily. Results of CT of the head discussed with the daughter, all questions answered. We will also do multivitamin 75 mL/hours, follow ABG, glucose level, clear liquid diet if able to tolerate. Follow a.m. labs. 10/03 patient is seen and examined at bedside, he was upgraded yesterday to the PCU secondary to high fever. Patient was placed on broad-spectrum IV antibiotics multivitamin IV. During my visit the patient is comfortably in bed, awake, following simple commands, not in distress, no chest pain, shortness shortness for breath, no nausea, no vomiting. He is getting IV fluids and IV antibiotics. Daughter is at the bedside. Blood pressure 134/63, afebrile, saturating normal on room air. White blood cell count of 10.4. Hemoglobin stable at 16.1. CMP is unremarkable. ABG with a in the normal range. Serology tests positive for influenza type A. Blood culture preliminary report no growth after 24 hours. Venous Doppler no evidence of DVT. CT chest abdomen and pelvis minimal bilateral pleural effusion with the associated dependent basilar atelectasis and mild cardiomegaly. No evidence of lobar consolidation or focal pneumoniae. Patient will be downgraded to medical floor, follow a.m. labs. PT to evaluate the patient. Discussed with the daughter at bedside, all questions answered, in agreement. CT chest abdomen and pelvis reported as follows: IMPRESSION: * Minimal bilateral pleural effusions with associated dependent basilar atelectasis and mild cardiomegaly, without CT evidence of lobar consolidation or a focal pneumonia. In the clinical context of suspected pneumonia, these findings may reflect volume status or early/treated infection; correlate with clinical course, laboratory markers, and prior chest radiographs. * Nonobstructing 4 mm calculus in the lower calyx of the right kidney and upper calyx of the left kidney and a simple 16 mm right midpole renal cyst, without hydronephrosis or CT evidence of obstructive uropathy. * Small hiatal hernia and multilevel degenerative changes in the thoracic and lumbar spine with healed fractures of the posterior left 6th and 7th ribs, compatible with chronic changes. * Mild cardiomegaly with [id number] coronary artery calcifications and mild aortic atherosclerotic calcification, consistent with chronic atherosclerotic cardiovascular disease. * Compared with the chest radiograph from 10/01/2025, which raised concern for possible pneumonia, the current noncontrast CT shows minimal effusions and basilar atelectasis without focal consolidation, suggesting no CT-confirmed lobar pneumonia at this time; interval change may reflect evolving or treated cardiopulmonary process, and continued clinical and radiographic follow-up should be guided by symptoms and examination findings. REVIEW OF SYSTEMS CONSTITUTIONAL: Denies fevers, chills, or night sweats. No unintentional weight loss reported. NEUROLOGICAL: Denies headache, amaurosis fugax, motor weakness, sensory deficit, vertigo/spinning sensation, gait abnormalities, or tremors. ENT: No hearing loss, otalgia, otorrhea, rhinitis, rhinorrhea, hoarseness, or sore throat. CARDIOVASCULAR: Denies any exertional angina, dyspnea on exertion, orthopnea, paroxysmal nocturnal dyspnea, palpitations, life-threatening arrhythmias, claudication. PULMONARY: Denies any shortness of breath, cough, phlegm/sputum, hemoptysis, pleuritic chest pain. SLEEP: Denies morning headaches, daytime somnolence or napping. Denies difficulty falling asleep, staying asleep, waking from sleep. Denies knowledge of snoring. GASTROINTESTINAL: Denies any type of dysphagia to either liquids or solids. Denies nausea, vomiting, pyrosis, early satiety, abdominal pain, diarrhea, constipation, or changes in stool consistency or caliber. Denies coffee-ground emesis, hematemesis, hematochezia, or melanotic stools. GENITOURINARY: Denies frequency, urgency, nocturia, hematuria or incontinence (Storage/Irritative symptoms.) Low urinary stream, straining to void, urinary intermittency or hesitancy, splitting of the voiding stream, terminal dribbling. ENDOCRINOLOGIC: Denies polyuria, polydipsia, polyphagia or heat/cold intolerances. HEMATOLOGIC: Denies thrombophilia/previous clots, or coagulopathy/bleeding disorders. ONCOLOGIC: Denies personal history of malignancy. DERMATOLOGIC: Denies rashes or pruritus. PSYCHIATRIC: Denies any suicidal or homicidal ideation. Denies hallucinations. PHYSICAL EXAM GENERAL APPEARANCE: The patient is awake, alert, and oriented, in no acute cardiopulmonary distress. NEUROLOGICAL: Cranial nerves II-XII grossly intact. Motor is 5/5 in bilateral upper and lower extremities proximal to distal. No sensory deficits. HEENT: Face is symmetric. Pupils are equal and reactive. Extraocular movements are intact. NECK: Supple. No JVD. No thyromegaly. No submental, submandibular, pre- /postauricular, occipital or supraclavicular lymphadenopathy. CHEST: Normal chest expansion. No Telemetry. LUNGS: Absence of any rales, rhonchi or any wheezing. CARDIOVASCULAR: Regular. S1 and S2 normal. No appreciable rubs, murmurs or gallops. ABDOMEN: Soft, nontender, and nondistended. There is no rebound, voluntary guarding, or rigidity. : Deferred. No Barboza. EXTREMITIES: Non-edematous and not cyanotic. No clubbing. Good capillary refill. SKIN: No skin breakdown. Vital Signs (last 8hr) Date Time Temp Pulse Resp B/P (MAP) Pulse Ox O2 Delivery O2 Flow Rate FiO2 10/03/25 11:59 97.5 58 18 134/63 93 Room Air 10/03/25 07:30 98.8 60 18 120/61 93 Room Air 10/03/25 07:15 60 20 N/A Room Air 21 LABS: Laboratory: Test 10/02/25 19:32 10/02/25 17:22 10/02/25 17:11 10/02/25 15:29 Range/Units Whole Blood Glucose 146 H 70-110 MG/DL Blood Gas Specimen Type Arterial Arterial Blood pH 7.434 7.350-7.450 Arterial Blood Partial Pressure CO2 36 35-48 mmHg Arterial Blood Partial Pressure O2 84.6 83.0-108.0 mmHg Arterial Blood HCO3 23.4 21.0-28.0 mmol/L Arterial Blood Oxygen Saturation 96.7 94.0-98.0 % Arterial Blood Base Excess -0.3 -2.0-3.0 mmol/L Blood Gas Temperature 37.0 35.5-37.0 CELSIUS Blood Gas Flow-by 6.00 0.00-15.00 L/min Blood Gas Vent Mode 6 L NC ROOM AIR FiO2 44.0 % Blood Gas Specimen Comment RR JUDY D-Dimer Quantitative (PE/DVT) 436 0-500 ng/mL White Blood Count 10.4 # 4.8-10.8 K/uL Red Blood Count 5.02 4.50-6.20 MIL/uL Hemoglobin 16.1 14.0-18.0 g/dL Hematocrit 46.5 42-54 % Mean Corpuscular Volume 92.6 79-99 fL Mean Corpuscular Hemoglobin 32.1 27.0-33.0 pg Mean Corpuscular Hemoglobin Concent 34.6 32.0-36.0 g/dL Red Cell Distribution Width 13.5 11.0-15.5 % Platelet Count 134 # 130-400 K/uL Mean Platelet Volume 10.4 7.5-10.5 fL Nucleated Red Blood Cells 0.0 0.0-0.19 % Test 10/02/25 14:15 10/02/25 06:31 10/02/25 00:20 Range/Units Sodium Level 134 L 136-145 mmol/L Potassium Level 3.5 3.5-5.1 mmol/L Chloride Level 100 L 101-111 mmol/L Carbon Dioxide Level 22 21-32 mmol/L Blood Urea Nitrogen 9 7-18 mg/dL Creatinine 0.8 0.5-1.3 mg/dL Glomerular Filtration Rate Calc 88 >90 mL/min Random Glucose 139 H 70-105 mg/dL Total Calcium 8.5 8.5-10.1 mg/dL Magnesium Level 2.10 1.80-2.40 mg/dL Total Bilirubin 0.5 # 0.2-1.0 mg/dL Aspartate Amino Transf (AST/SGOT) 22 10-37 U/L Alanine Aminotransferase (ALT/SGPT) 27 12-78 U/L Alkaline Phosphatase 93 50-136 U/L Ammonia < 10 L 11-32 umol/L Total Protein 7.4 6.0-8.3 g/dL Albumin 3.6 3.5-5.0 g/dL Immature Granulocyte % (Auto) 0.6 0-1 % Neutrophils (%) (Auto) 71.8 40.0-77.0 % Lymphocytes (%) (Auto) 16.6 L 21.0-51.0 % Monocytes (%) (Auto) 10.4 3.0-13.0 % Eosinophils (%) (Auto) 0.3 0.0-8.0 % Basophils (%) (Auto) 0.3 0.0-5.0 % Neutrophils # (Auto) 4.8 1.8-7.7 K/uL Lymphocytes # (Auto) 1.1 1.0-4.8 K/uL Monocytes # (Auto) 0.7 0.1-1.0 K/uL Eosinophils # (Auto) 0.02 0.00-0.70 K/uL Basophils # (Auto) 0.02 0.00-0.20 K/uL Absolute Immature Granulocyte (auto 0.04 0-1 K/uL Influenza Type A Antigen Positive For Type A *A NEGATIVE Influenza Type B Antigen Negative For Type B NEGATIVE SARS-CoV-2 Antigen (Rapid) PRESUMPTIVE NEGATIVE NEGATIVE Group A Streptococcus Rapid negative NEGATIVE Current Medications Medications (Trade) Dose Ordered Sig/Gianna Route PRN Reason Start Time Stop Time Status Last Admin Dose Admin Acetaminophen (TYLenol 325MG TAB) 650 mg Q6H PRN PO MILD PAIN (1-3) 10/02/25 11:00 11/01/25 10:59 10/03/25 05:27 650 MG Acetaminophen (TYLenol 650MG SUPPOSITORY) 650 mg Q4H PRN RC TEMPERATURE GREATER THAN 101.5 10/02/25 17:00 11/01/25 16:59 Acetaminophen (Tylenol 325mg Suppository) 650 mg Q4H PRN RC TEMPERATURE GREATER THAN 101.5 10/01/25 15:30 10/31/25 15:29 10/01/25 22:58 650 MG Acetaminophen (Tylenol 325mg Suppository) 650 mg Q6H PRN RC MILD PAIN (1-3) 10/01/25 15:30 10/31/25 15:29 Amlodipine Besylate (NorvASC 5MG TAB) 5 mg DAILY PO 10/02/25 11:00 11/01/25 10:59 10/03/25 09:10 5 MG Atorvastatin Calcium (LIPItor 10MG) 20 mg HS PO 10/02/25 21:00 11/01/25 20:59 10/02/25 20:40 20 MG Ceftriaxone Sodium (ROCEphine 1G INJ) 1 gm Q24H IVPB 10/02/25 11:00 10/03/25 03:05 DC Cetirizine HCl (ZYRtec 5 MG TABLET) 10 mg DAILY PO 10/03/25 09:00 11/02/25 08:59 10/03/25 09:10 10 MG Doxycycline Hyclate (Doxycycline Hyclate) 100 mg Q12H PO 10/03/25 11:30 10/13/25 11:29 10/03/25 12:37 100 MG Fish Oil (Fish Oil 1000 Mg/Cap) 1,000 mg DAILY PO 10/03/25 09:00 11/02/25 08:59 10/03/25 09:09 1,000 MG Hydralazine HCl (APRESOLine 20MG INJ) 5 mg Q6H PRN IV ADMINISTER FOR SBP > 160 10/02/25 11:00 11/01/25 10:59 Losartan Potassium (CozAAR 25MG TAB) 12.5 mg DAILY PO 10/03/25 09:00 11/02/25 08:59 10/03/25 09:09 12.5 MG PE Memantine (NAmenDA 5 MG TAB) 2.5 mg DAILY PO 10/03/25 09:00 11/02/25 08:59 10/03/25 09:10 2.5 MG Multivitamins/ Minerals 10 ml/ Folic Acid 1 mg/ Thiamine HCl 100 mg/Sodium Chloride 1,000 ml @ 75 mls/hr DAILY IV 10/03/25 09:00 10/02/25 14:15 DC Multivitamins/ Minerals 10 ml/ Folic Acid 1 mg/ Thiamine HCl 100 mg/Sodium Chloride 1,000 ml @ 75 mls/hr Q24H IV 10/02/25 15:00 10/05/25 04:19 10/02/25 15:59 75 MLS/HR Nicotine (Nicoderm) 14 mg DAILY TD 10/02/25 09:00 11/01/25 08:59 10/03/25 09:10 14 MG Ondansetron HCl (zoFRAN 4MG INJ) 4 mg Q6H PRN IVP NAUSEA/VOMITING 10/01/25 15:30 10/31/25 15:29 Oseltamivir Phosphate (Tamiflu) 75 mg BID PO 10/02/25 09:00 10/07/25 08:59 10/03/25 09:10 75 MG Pantoprazole Sodium (PROTonix 40MG INJ) 40 mg DAILY IVP 10/02/25 15:00 11/01/25 14:59 10/03/25 08:49 40 MG Piperacillin Sod/ Tazobactam Sod (Zosyn 3.375gm+NS 50ml) 3.375 gm Q8H IV 10/02/25 17:00 10/12/25 16:59 10/03/25 08:49 3.375 GM Sertraline HCl (ZOloft 50 mg tab) 100 mg HS PO 10/02/25 21:00 11/01/25 20:59 10/02/25 20:40 100 MG Sodium Chloride 1,000 ml @ 100 mls/hr Q10H IV 10/02/25 06:30 11/01/25 06:29 10/03/25 04:22 100 MLS/HR Vancomycin HCl 250 ml @ 125 mls/hr Q12H IV 10/02/25 19:00 10/12/25 18:59 10/03/25 08:49 125 MLS/HR Vancomycin HCl (Vancomycin Protocol) 1 each AD IV 10/02/25 17:00 10/16/25 16:59 Vancomycin HCl (Vancomycin Protocol) 1 each AD IV 10/02/25 17:00 10/16/25 16:59 UNV DIAGNOSTICS / RADIOLOGY: [ ] ASSESSMENT: Acute metabolic encephalopathy metabolic POA Sepsis, POA Upper respiratory infection, secondary to influenza type a, POA Right mastoiditis, POA Status post fall, POA Hyperglycemia, POA Chronic condition: Hypertension, dementia, hyperlipidemia Advanced dementia Mild malnutrition, POA PLAN: patient is seen and examined at bedside, he was upgraded yesterday to the PCU secondary to high fever. Patient was placed on broad-spectrum IV antibiotics multivitamin IV. During my visit the patient is comfortably in bed, awake, following simple commands, not in distress, no chest pain, shortness shortness for breath, no nausea, no vomiting. He is getting IV fluids and IV antibiotics. Daughter is at the bedside. Blood pressure 134/63, afebrile, saturating normal on room air. White blood cell count of 10.4. Hemoglobin stable at 16.1. CMP is unremarkable. ABG with a in the normal range. Serology tests positive for influenza type A. Blood culture preliminary report no growth after 24 hours. Venous Doppler no evidence of DVT. CT chest abdomen and pelvis minimal bilateral pleural effusion with the associated dependent basilar atelectasis and mild cardiomegaly. No evidence of lobar consolidation or focal pneumoniae. Patient will be downgraded to medical floor, follow a.m. labs. PT to evaluate the patient. Discussed with the daughter at bedside, all questions answered, in agreement. CT chest abdomen and pelvis reported as follows: IMPRESSION: * Minimal bilateral pleural effusions with associated dependent basilar atelectasis and mild cardiomegaly, without CT evidence of lobar consolidation or a focal pneumonia. In the clinical context of suspected pneumonia, these findings may reflect volume status or early/treated infection; correlate with clinical course, laboratory markers, and prior chest radiographs. * Nonobstructing 4 mm calculus in the lower calyx of the right kidney and upper calyx of the left kidney and a simple 16 mm right midpole renal cyst, without hydronephrosis or CT evidence of obstructive uropathy. * Small hiatal hernia and multilevel degenerative changes in the thoracic and lumbar spine with healed fractures of the posterior left 6th and 7th ribs, compatible with chronic changes. * Mild cardiomegaly with [id number] coronary artery calcifications and mild aortic atherosclerotic calcification, consistent with chronic atherosclerotic cardiovascular disease. * Compared with the chest radiograph from 10/01/2025, which raised concern for possible pneumonia, the current noncontrast CT shows minimal effusions and basilar atelectasis without focal consolidation, suggesting no CT-confirmed lobar pneumonia at this time; interval change may reflect evolving or treated cardiopulmonary process, and continued clinical and radiographic follow-up should be guided by symptoms and examination findings.. NEURO: Minimize central acting medications as possible. Fall Precautions. Well lighted room through the day and minimize interruptions through the night to prevent acute delirium. PULMONARY: Supplemental 02 as needed BiPAP as necessary, for respiratory distress Titrate Fio2 to keep Spo2 > or = 90% DuoNebs and CPT as needed IS hourly while awake for pulmonary hygiene prn Out of bed to chair as tolerated Maintain aspiration precautions at all times CARDIOVASCULAR: Follow hemodynamics. Vital signs per facility protocol GI & NUTRITION: Continue nutritional support Aspirations precautions Prokinetic agents and laxatives as needed KIDNEYS & ELECTROLYTES: Strict monitoring of intake and output Daily weights Avoid nephrotoxic agents Monitor electrolytes and replace as needed Goal urine output of 30mL/hr or 0.5mL/kg/hr Medications to be dosed according to renal function. Avoid contrast if possible ENDOCRINE: Maintain blood glucose between 100-180 at all times. Insulin sliding scale for blood glucose management Hypoglycemia and hyperglycemia protocol in place INFECTIOUS DISEASE: Trend temperature, WBC and procalcitonin level Follow cultures, deescalate antibiotics as soon as possible. Panculture if new onset fever HEMATOLOGY & COAGULATION: Monitor H&H. Keep Hgb > 7 Transfuse 1 unit of PRBC for Hgb < 7 Transfuse 1 pack of platelets of platelets < 20, 000 Watch for any signs and symptoms of bleeding SKIN: Pressure ulcer prevention per facility protocol Specialty mattress as needed ORTHO/REHAB Continue PT/OT PRN: MEDICATIONS Tylenol 650 mg po every 4 hrs for fever zofran 4 mg IV every 6 hrs for n/v Hydralazine 5 mg IV every 4 hrs systolic pressure > 160 bowel regiment: lactulose 20 gm PO BID PRN constipation Supportive measures: Continue GI and DVT prophylaxis Disposition: Pending improvement in clinical condition All questions answered time spent: > 35 min BHAVYA SANTILLAN MD Oct 03, 2025 13:05
--- NOTE | 2025-10-03 13:15 | NUR ---
REPORT CALLED TO ALYCIA KEATING AND WILL TRANSFER PATIENT VIA BED TO ROOM 415.
--- NOTE | 2025-10-03 13:26 | NUR ---
CALLED AND SPOKE WITH DAUGHTERCHANCE AT [phone] AND INFORMED HER OF TRANSFER TO ROOM 415.
--- NOTE | 2025-10-03 13:50 | NUR ---
Arrival on unit PATIENT ARRIVED ON UNIT VIA BED. PATIENT WAS ORIENTED TO THE BEST OF MY ABILITY TO HIS ROOM AND GIVEN THE CALL LIGHT IN ORDER TO NOTIFY STAFF ABOUT ANY ASSISTANCE HE MAY NEED. THE PATIENT WAS NOT IN ANY DISTRESS AT THIS TIME.
--- NOTE | 2025-10-03 17:09 | CONS ---
[facility] CONSULTATION NOTE Date Patient Seen: Oct 03, 2025 Time of Visit: 0820 Supervising Physician: [ Dr. Cuenca] Reason for Consultation: [ Critical Care consult ] Primary Care Physician: [ ] Outpatient Specialists: [ ] Inpatient Consults: [ ] PROBLEM LIST: Acute metabolic encephalopathy versus infectious Influenza type a Status post fall at home HTN Hyperlipidemia Dementia HPI: 85-year-old male with past medical history of HTN, hyperlipidemia, dementia, current smoker, presented to the emergency department with complaints of altered mental status, slurred speech and shuffling gait with a fall at home. Initial x-ray showed pulmonary vascular congestion. Patient had a CT of head which showed no acute intracranial findings with right mastoid opacifications rogers ggestive of mastoiditis. Serology test positive for influenza type a. CT chest with minimal bilateral effusions. Patient had been upgraded yesterday to PCCU secondary to high fever of 104. Currently nursing reporting temperature 9 8.4 patient is on broad-spectrum IV antibiotics. Patient following simple commands. This morning he is sitting comfortably in bed patient is on room air sating 96%, ABG within normal range. PAST MEDICAL HX: see above PAST SURGICAL HX: noncontributory SOCIAL HISTORY: No tobacco, ETOH, or illicit drug use Coded Allergies: No Known Allergies (Unverified Allergy, Unknown, 06/19/23) REVIEW OF SYSTEMS: 12 point ROS reviewed with patient. Pertinent positives mentioned above. Otherwise negative. PHYSICAL EXAM: GENERAL: alert, oriented to self HEENT: EOMI, Sclera non icteric, moist mucosa NECK: Supple, no JVD, trachea midline LUNGS: diminished HEART: Regular rate and rhythm. Normal S1 and S2, without murmurs ABD: Abdomen soft, nontender. Bowel sounds present EXT: No clubbing cyanosis or edema NEURO: Alert and oriented to person, follows commands Vital Signs (last 8hr) Date Time Temp Pulse Resp B/P (MAP) Pulse Ox O2 Delivery O2 Flow Rate FiO2 10/03/25 16:00 96.8 57 16 131/91 96 Room Air 21 10/03/25 13:50 97.9 61 18 118/52 94 Room Air 21 10/03/25 11:59 97.5 58 18 134/63 93 Room Air LABS: Hematology Labs: Test 10/02/25 15:29 10/02/25 06:31 Range/Units White Blood Count 10.4 # 4.8-10.8 K/uL Red Blood Count 5.02 4.50-6.20 MIL/uL Hemoglobin 16.1 14.0-18.0 g/dL Hematocrit 46.5 42-54 % Mean Corpuscular Volume 92.6 79-99 fL Mean Corpuscular Hemoglobin 32.1 27.0-33.0 pg Mean Corpuscular Hemoglobin Concent 34.6 32.0-36.0 g/dL Red Cell Distribution Width 13.5 11.0-15.5 % Platelet Count 134 # 130-400 K/uL Mean Platelet Volume 10.4 7.5-10.5 fL Nucleated Red Blood Cells 0.0 0.0-0.19 % Immature Granulocyte % (Auto) 0.6 0-1 % Neutrophils (%) (Auto) 71.8 40.0-77.0 % Lymphocytes (%) (Auto) 16.6 L 21.0-51.0 % Monocytes (%) (Auto) 10.4 3.0-13.0 % Eosinophils (%) (Auto) 0.3 0.0-8.0 % Basophils (%) (Auto) 0.3 0.0-5.0 % Neutrophils # (Auto) 4.8 1.8-7.7 K/uL Lymphocytes # (Auto) 1.1 1.0-4.8 K/uL Monocytes # (Auto) 0.7 0.1-1.0 K/uL Eosinophils # (Auto) 0.02 0.00-0.70 K/uL Basophils # (Auto) 0.02 0.00-0.20 K/uL Absolute Immature Granulocyte (auto 0.04 0-1 K/uL Chemistry Labs: Test 10/02/25 19:32 10/02/25 14:15 Range/Units Whole Blood Glucose 146 H 70-110 MG/DL Sodium Level 134 L 136-145 mmol/L Potassium Level 3.5 3.5-5.1 mmol/L Chloride Level 100 L 101-111 mmol/L Carbon Dioxide Level 22 21-32 mmol/L Blood Urea Nitrogen 9 7-18 mg/dL Creatinine 0.8 0.5-1.3 mg/dL Glomerular Filtration Rate Calc 88 >90 mL/min Random Glucose 139 H 70-105 mg/dL Total Calcium 8.5 8.5-10.1 mg/dL Magnesium Level 2.10 1.80-2.40 mg/dL Total Bilirubin 0.5 # 0.2-1.0 mg/dL Aspartate Amino Transf (AST/SGOT) 22 10-37 U/L Alanine Aminotransferase (ALT/SGPT) 27 12-78 U/L Alkaline Phosphatase 93 50-136 U/L Ammonia < 10 L 11-32 umol/L Total Protein 7.4 6.0-8.3 g/dL Albumin 3.6 3.5-5.0 g/dL Coagulation Labs: Test 10/02/25 17:11 Range/Units D-Dimer Quantitative (PE/DVT) 436 0-500 ng/mL DIAGNOSTICS / RADIOLOGY RESULTS: [ ] PLAN NEURO: Minimize central acting medications as possible. Fall Precautions. Well lighted room through the day and minimize interruptions through the night to prevent acute delirium. PULMONARY: Supplemental 02 as needed Titrate Fio2 to keep Spo2 > or = 90% DuoNebs and CPT as needed IS hourly while awake for pulmonary hygiene Out of bed to chair as tolerated VAP Bundle Vent/BIPAP Settings: [ ] Driving pressure: [ ] P Plat: [ ] Static C: [ ] Static R: [ ] P/F Ratio: [ ] CARDIOVASCULAR: Follow hemodynamics. Titrate vasopressor to keep MAP >65 or systolic blood pressure >95mmHg DIPS: [ ] LINES: [ ] GI & NUTRITION: Continue nutritional support Aspirations precautions Prokinetic agents and laxatives as needed KIDNEYS & ELECTROLYTES: Strict monitoring of intake and output Daily weights Avoid nephrotoxic agents Monitor electrolytes and replace as needed Goal urine output of 30mL/hr or 0.5mL/kg/hr Urine output: [ ] Fluid Balance: [ ] ENDOCRINE: Maintain blood glucose between 100-180 at all times. Insulin sliding scale for blood glucose management INFECTIOUS DISEASE: Trend temperature. Roberts-culture if febrile. Micro: [ ] Antibiotics: [ ] HEMATOLOGY & COAGULATION: Monitor H&H. Keep Hgb > 7 Transfuse 1 unit of PRBC for Hgb < 7 Transfuse 1 pack of platelets of platelets < 20, 000 Watch for any signs and symptoms of bleeding SKIN: Pressure ulcer prevention per facility protocol Rehab: PT/OT Prophylaxis: GI: [ ] DVT: [ ] Code Status: Full Resuscitation Disposition: [ ] Total critical care time: 40 minutes Case was discussed and seen with my supervising physician. The above plan was formulated and agreed upon. JACKELYN VELIZ AGACNP Oct 03, 2025 17:09 SIRI BUSH MD Oct 04, 2025 07:38
[2025-10-03] MEDS: VANCOMYCIN 1G/250ML KIT 250 ML IV SCH (21:14)
[2025-10-03] MEDS ORDERED: VANCOMYCIN PROTOCOL PER PHARMACY IV SCH (22:00)
--- NOTE | 2025-10-03 23:18 | CONS ---
INFECTIOUS DISEASE CONSULTATION DATE OF SERVICE: 10/02/2025 REQUESTING PHYSICIAN: Dr. Pacheco. REASON FOR CONSULTATION: Sepsis, pneumonia, viral influenza infection. HISTORY OF PRESENT ILLNESS: The patient is an 85-year-old male with a history of hypertension, dementia, dyslipidemia and chronic tobacco use who was brought to the emergency department with altered mental status and some fever. The patient was found on the floor by family. The patient was found with cough and shortness of breath. Stroke has been ruled out. The patient had fever. T-max was 104. Influenza antigen came back positive. CT chest shows infiltrate and atelectasis. The patient is on antibiotics include vancomycin, Zosyn and Tamiflu. He continued with fever. The patient's urinalysis was negative. The patient has severe dementia, unable to give any history. PAST MEDICAL HISTORY: * Hypertension. * Dementia. * Dyslipidemia. * Chronic tobacco use. PAST SURGICAL HISTORY: ALLERGIES: No known drug allergies. CURRENT MEDICATIONS INCLUDE: * Zosyn. * Vancomycin. * Tamiflu. * Tylenol. * Norvasc. * Sulfa. SOCIAL HISTORY: Lives with . FAMILY HISTORY: Noncontributory. REVIEW OF SYSTEMS: I believe was obtained from medical record. The patient PHYSICAL EXAMINATION: GENERAL: The patient is an elderly male, awake. VITAL SIGNS: Temperature 98.8, pulse , respirations 18, BP 120/61. EYES: No icterus. Pupils equal and reactive. HENT: No oral thrush seen. Moist oral mucosa. NECK: Supple. No JVD or thyromegaly. LUNGS: Good air entry. Crackles bilaterally. CARDIOVASCULAR: S1 and S2 regular. No murmur or gallop. ABDOMEN: Full, soft. Bowel sounds present. CENTRAL NERVOUS SYSTEM: The patient is awake and confused. No focal deficits. SKIN: No rashes. LYMPHATIC: No peripheral lymphadenopathy. BACK: No deformity, no pressure ulcer. HEMATOLOGIC: No bleeding or petechial lesions seen. MUSCULOSKELETAL: No joint swelling. No erythema or tenderness. LABORATORY DATA: Sodium 134, potassium 3.5, BUN 9, creatinine 0.5. Ammonia level was negative. WBC 10.7, hemoglobin . Influenza antigen positive for type A. Blood culture, no growth for 1 day[address] RADIOLOGY: CT chest shows bilateral infiltrates and atelectasis. Echocardiogram shows EF of 55-60% with stage 1 diastolic dysfunction. Venous Doppler negative. ASSESSMENT: An 85-year-old male Current problems include, * Sepsis. * Viral influenza infection. * Pneumonia. * Encephalopathy. * Chronic tobacco use. PLAN: * Start the patient on doxycycline. * Continue Tamiflu. * Continue vancomycin. * Continue Zosyn. * Continue * Continue nutritional support. * Continue DVT prophylaxis. * Monitor electrolytes. * The patient will be followed up closely. TID: [id number] RECEIPT: [id number]
[2025-10-04] VITALS (8 sets, daily range): BP systolic 113–139; BP diastolic 45–66; PULSE 55–65; RESP 16–20; TEMP 97.8–98.7; O2SAT 95–96
--- NOTE | 2025-10-04 04:01 | NUR ---
nurse note patient alert and oriented times person. he is hard of hearing. plan of care discussed with him and his daughter, tha. tha verbalized understanding. tha left home around 21:00. The patient has been having large yellow clear bowel movements about 6 for tonight. Bedside commode on his bedside. Patient is ambulatory with assistance and follows commands. He does not call to get up. Bed alarm on at all times. he has slept about 3 hours tonight. he is coughing and explained to spit out the sputum, but he cannot. door slightly open, call light within reach, bed alarm alarm on, 2 side rails up. will continue to monitor patient.
[2025-10-04 04:21] LABS: NUCLEATED RED BLOOD CELLS 0.0 % (0.0-0.19); PLATELET COUNT (AUTO) 193.0 K/uL (130-400); RED BLOOD CELL COUNT(AUTO) 4.38 MIL/uL (4.50-6.20); RED CELL DISTRIBUTION WIDTH 13.7 % (11.0-15.5); WHITE BLOOD COUNT (AUTO) 7.7 K/uL (4.8-10.8)
[2025-10-04 04:41] LABS: ASPARTATE AMINOTRANSFERASE 18.0 U/L (10-37); CREATININE 0.8 mg/dL (0.5-1.3); GLOMERULAR FILTR. RATE CALC 88.0 mL/min (>90); GLUCOSE,RANDOM 138.0 mg/dL (70-105); SODIUM SERUM 137.0 mmol/L (136-145); TOTAL PROTEIN, SERUM 6.3 g/dL (6.0-8.3); UREA NITROGEN, BLOOD 10.0 mg/dL (7-18)
[2025-10-04] MEDS: PoTASSium chl 10% ELIXIR 20MEQ 20 MEQ/15 ML UDCUP PO PRN (05:51)
[2025-10-04] MEDS: VANCOMYCIN 1G/250ML KIT 250 ML IV SCH ×2 (08:53→09:00)
--- NOTE | 2025-10-04 10:16 | PN ---
[facility] PROGRESS NOTE Date of Service: Oct 04, 2025 Time of Service: 10:13 SUBJECTIVE: 10/02 patient remains admitted to medical floor, seen and examined at bedside, the time of my visit the patient is comfortably in bed, not agitated, not combative. Daughter is at the bedside during my visit, the patient with advanced dementia, however he is usually more awake. Upon evaluation the patient withdrawing to painful stimulation, he was able to open eyes, open the mouth and showed the tongue. He is withdrawing to painful stimulation. We will looks dehydrated. BP 158/68, he has been spiking fever 102.6. Saturating normal on room air. CBC is unremarkable. Potassium level 3.3. Serology test positive for influenza type A. CT head done, no acute intracranial finding, right mastoid opacification suggestive of mastoiditis. Patient remains on respiratory isolation, continue Tamiflu 75 mg p.o. b.i.d.. Add Rocephin 1 g IV daily. Results of CT of the head discussed with the daughter, all questions answered. We will also do multivitamin 75 mL/hours, follow ABG, glucose level, clear liquid diet if able to tolerate. Follow a.m. labs. 10/03 patient is seen and examined at bedside, he was upgraded yesterday to the PCU secondary to high fever. Patient was placed on broad-spectrum IV antibiotics multivitamin IV. During my visit the patient is comfortably in bed, awake, following simple commands, not in distress, no chest pain, shortness shortness for breath, no nausea, no vomiting. He is getting IV fluids and IV antibiotics. Daughter is at the bedside. Blood pressure 134/63, afebrile, saturating normal on room air. White blood cell count of 10.4. Hemoglobin stable at 16.1. CMP is unremarkable. ABG with a in the normal range. Serology tests positive for influenza type A. Blood culture preliminary report no growth after 24 hours. Venous Doppler no evidence of DVT. CT chest abdomen and pelvis minimal bilateral pleural effusion with the associated dependent basilar atelectasis and mild cardiomegaly. No evidence of lobar consolidation or focal pneumoniae. Patient will be downgraded to medical floor, follow a.m. labs. PT to evaluate the patient. Discussed with the daughter at bedside, all questions answered, in agreement. CT chest abdomen and pelvis reported as follows: IMPRESSION: * Minimal bilateral pleural effusions with associated dependent basilar atelectasis and mild cardiomegaly, without CT evidence of lobar consolidation or a focal pneumonia. In the clinical context of suspected pneumonia, these findings may reflect volume status or early/treated infection; correlate with clinical course, laboratory markers, and prior chest radiographs. * Nonobstructing 4 mm calculus in the lower calyx of the right kidney and upper calyx of the left kidney and a simple 16 mm right midpole renal cyst, without hydronephrosis or CT evidence of obstructive uropathy. * Small hiatal hernia and multilevel degenerative changes in the thoracic and lumbar spine with healed fractures of the posterior left 6th and 7th ribs, compatible with chronic changes. * Mild cardiomegaly with [id number] coronary artery calcifications and mild aortic atherosclerotic calcification, consistent with chronic atherosclerotic cardiovascular disease. * Compared with the chest radiograph from 10/01/2025, which raised concern for possible pneumonia, the current noncontrast CT shows minimal effusions and basilar atelectasis without focal consolidation, suggesting no CT-confirmed lobar pneumonia at this time; interval change may reflect evolving or treated cardiopulmonary process, and continued clinical and radiographic follow-up should be guided by symptoms and examination findings. 10/04 85 year old male with past medical history of hypertension, hyperlipidemia, dementia, current smoker who presented to the emergency department with complaints of altered mental status, slurred speech, shuffling gait. Patient is started spiking fever, as high as 104.0. Upgraded to the ICU for close observation, then downgraded to the medical floor. Patient positive for influenza type A. CT head right mastoid opacification, suggestive of mastoiditis. Blood pressure 135/55, afebrile, saturating normal on room air. Awake, following simple commands. Hemoglobin 13.9, hematocrit 40.5. Potassium 3.4. Continue broad-spectrum IV antibiotics. Follow ID input recommendation. Monitor mental status. A.m. labs. We will request Physical therapy to evaluate the patient. Fall precautions. Daughter not in the room at the time of my visit. REVIEW OF SYSTEMS CONSTITUTIONAL: Denies fevers, chills, or night sweats. No unintentional weight loss reported. NEUROLOGICAL: Denies headache, amaurosis fugax, motor weakness, sensory deficit, vertigo/spinning sensation, gait abnormalities, or tremors. ENT: No hearing loss, otalgia, otorrhea, rhinitis, rhinorrhea, hoarseness, or sore throat. CARDIOVASCULAR: Denies any exertional angina, dyspnea on exertion, orthopnea, paroxysmal nocturnal dyspnea, palpitations, life-threatening arrhythmias, claudication. PULMONARY: Denies any shortness of breath, cough, phlegm/sputum, hemoptysis, pleuritic chest pain. SLEEP: Denies morning headaches, daytime somnolence or napping. Denies difficulty falling asleep, staying asleep, waking from sleep. Denies knowledge of snoring. GASTROINTESTINAL: Denies any type of dysphagia to either liquids or solids. Denies nausea, vomiting, pyrosis, early satiety, abdominal pain, diarrhea, constipation, or changes in stool consistency or caliber. Denies coffee-ground emesis, hematemesis, hematochezia, or melanotic stools. GENITOURINARY: Denies frequency, urgency, nocturia, hematuria or incontinence (Storage/Irritative symptoms.) Low urinary stream, straining to void, urinary intermittency or hesitancy, splitting of the voiding stream, terminal dribbling. ENDOCRINOLOGIC: Denies polyuria, polydipsia, polyphagia or heat/cold intolerances. HEMATOLOGIC: Denies thrombophilia/previous clots, or coagulopathy/bleeding disorders. ONCOLOGIC: Denies personal history of malignancy. DERMATOLOGIC: Denies rashes or pruritus. PSYCHIATRIC: Denies any suicidal or homicidal ideation. Denies hallucinations. PHYSICAL EXAM GENERAL APPEARANCE: The patient is awake, alert, and oriented, in no acute cardiopulmonary distress. NEUROLOGICAL: Cranial nerves II-XII grossly intact. Motor is 5/5 in bilateral upper and lower extremities proximal to distal. No sensory deficits. HEENT: Face is symmetric. Pupils are equal and reactive. Extraocular movements are intact. NECK: Supple. No JVD. No thyromegaly. No submental, submandibular, pre- /postauricular, occipital or supraclavicular lymphadenopathy. CHEST: Normal chest expansion. No Telemetry. LUNGS: Absence of any rales, rhonchi or any wheezing. CARDIOVASCULAR: Regular. S1 and S2 normal. No appreciable rubs, murmurs or gallops. ABDOMEN: Soft, nontender, and nondistended. There is no rebound, voluntary guarding, or rigidity. : Deferred. No Barboza. EXTREMITIES: Non-edematous and not cyanotic. No clubbing. Good capillary refill. SKIN: No skin breakdown. Vital Signs (last 8hr) Date Time Temp Pulse Resp B/P (MAP) Pulse Ox O2 Delivery O2 Flow Rate FiO2 10/04/25 09:31 96 Room Air* 0 21 10/04/25 08:00 97.9 65 16 125/55 96 Room Air 10/04/25 04:00 98.4 60 18 132/66 94 Room Air LABS: Laboratory: Test 10/04/25 04:14 10/02/25 19:32 10/02/25 17:22 10/02/25 17:11 Range/Units White Blood Count 7.7 4.8-10.8 K/uL Red Blood Count 4.38 L 4.50-6.20 MIL/uL Hemoglobin 13.9 L 14.0-18.0 g/dL Hematocrit 40.5 L 42-54 % Mean Corpuscular Volume 92.5 79-99 fL Mean Corpuscular Hemoglobin 31.7 27.0-33.0 pg Mean Corpuscular Hemoglobin Concent 34.3 32.0-36.0 g/dL Red Cell Distribution Width 13.7 11.0-15.5 % Platelet Count 193 # 130-400 K/uL Mean Platelet Volume 9.8 7.5-10.5 fL Nucleated Red Blood Cells 0.0 0.0-0.19 % Sodium Level 137 136-145 mmol/L Potassium Level 3.4 L 3.5-5.1 mmol/L Chloride Level 108 101-111 mmol/L Carbon Dioxide Level 20 L 21-32 mmol/L Blood Urea Nitrogen 10 7-18 mg/dL Creatinine 0.8 0.5-1.3 mg/dL Glomerular Filtration Rate Calc 88 >90 mL/min Random Glucose 138 H 70-105 mg/dL Total Calcium 8.1 L 8.5-10.1 mg/dL Magnesium Level 2.00 1.80-2.40 mg/dL Total Bilirubin 0.6 0.2-1.0 mg/dL Aspartate Amino Transf (AST/SGOT) 18 10-37 U/L Alanine Aminotransferase (ALT/SGPT) 25 12-78 U/L Alkaline Phosphatase 65 50-136 U/L Total Protein 6.3 6.0-8.3 g/dL Albumin 2.9 L 3.5-5.0 g/dL Whole Blood Glucose 146 H 70-110 MG/DL Blood Gas Specimen Type Arterial Arterial Blood pH 7.434 7.350-7.450 Arterial Blood Partial Pressure CO2 36 35-48 mmHg Arterial Blood Partial Pressure O2 84.6 83.0-108.0 mmHg Arterial Blood HCO3 23.4 21.0-28.0 mmol/L Arterial Blood Oxygen Saturation 96.7 94.0-98.0 % Arterial Blood Base Excess -0.3 -2.0-3.0 mmol/L Blood Gas Temperature 37.0 35.5-37.0 CELSIUS Blood Gas Flow-by 6.00 0.00-15.00 L/min Blood Gas Vent Mode 6 L NC ROOM AIR FiO2 44.0 % Blood Gas Specimen Comment RR UJDY D-Dimer Quantitative (PE/DVT) 436 0-500 ng/mL Test 10/02/25 14:15 Range/Units Ammonia < 10 L 11-32 umol/L Current Medications Medications (Trade) Dose Ordered Sig/Gianna Route PRN Reason Start Time Stop Time Status Last Admin Dose Admin Acetaminophen (TYLenol 325MG TAB) 650 mg Q6H PRN PO MILD PAIN (1-3) 10/02/25 11:00 11/01/25 10:59 10/03/25 05:27 650 MG Acetaminophen (TYLenol 650MG SUPPOSITORY) 650 mg Q4H PRN RC TEMPERATURE GREATER THAN 101.5 10/02/25 17:00 11/01/25 16:59 Acetaminophen (Tylenol 325mg Suppository) 650 mg Q4H PRN RC TEMPERATURE GREATER THAN 101.5 10/01/25 15:30 10/31/25 15:29 10/01/25 22:58 650 MG Acetaminophen (Tylenol 325mg Suppository) 650 mg Q6H PRN RC MILD PAIN (1-3) 10/01/25 15:30 10/31/25 15:29 Amlodipine Besylate (NorvASC 5MG TAB) 5 mg DAILY PO 10/02/25 11:00 11/01/25 10:59 10/04/25 08:54 5 MG Atorvastatin Calcium (LIPItor 10MG) 20 mg HS PO 10/02/25 21:00 11/01/25 20:59 10/03/25 21:13 20 MG Ceftriaxone Sodium (ROCEphine 1G INJ) 1 gm Q24H IVPB 10/02/25 11:00 10/03/25 03:05 DC Cetirizine HCl (ZYRtec 5 MG TABLET) 10 mg DAILY PO 10/03/25 09:00 11/02/25 08:59 10/04/25 08:54 10 MG Doxycycline Hyclate (Doxycycline Hyclate) 100 mg Q12H PO 10/03/25 11:30 10/13/25 11:29 10/04/25 00:27 100 MG Fish Oil (Fish Oil 1000 Mg/Cap) 1,000 mg DAILY PO 10/03/25 09:00 11/02/25 08:59 10/04/25 08:53 1,000 MG Hydralazine HCl (APRESOLine 20MG INJ) 5 mg Q6H PRN IV ADMINISTER FOR SBP > 160 10/02/25 11:00 11/01/25 10:59 Losartan Potassium (CozAAR 25MG TAB) 12.5 mg DAILY PO 10/03/25 09:00 11/02/25 08:59 10/04/25 08:54 12.5 MG Memantine (NAmenDA 5 MG TAB) 2.5 mg DAILY PO 10/03/25 09:00 11/02/25 08:59 10/04/25 08:54 2.5 MG Multivitamins/ Minerals 10 ml/ Folic Acid 1 mg/ Thiamine HCl 100 mg/Sodium Chloride 1,000 ml @ 75 mls/hr DAILY IV 10/03/25 09:00 10/02/25 14:15 DC Multivitamins/ Minerals 10 ml/ Folic Acid 1 mg/ Thiamine HCl 100 mg/Sodium Chloride 1,000 ml @ 75 mls/hr Q24H IV 10/02/25 15:00 10/05/25 04:19 10/03/25 16:58 75 MLS/HR Nicotine (Nicoderm) 14 mg DAILY TD 10/02/25 09:00 11/01/25 08:59 10/04/25 08:54 14 MG Ondansetron HCl (zoFRAN 4MG INJ) 4 mg Q6H PRN IVP NAUSEA/VOMITING 10/01/25 15:30 10/31/25 15:29 Oseltamivir Phosphate (Tamiflu) 75 mg BID PO 10/02/25 09:00 10/07/25 08:59 10/04/25 08:54 75 MG Pantoprazole Sodium (PROTonix 40MG INJ) 40 mg DAILY IVP 10/02/25 15:00 11/01/25 14:59 10/04/25 08:53 40 MG Piperacillin Sod/ Tazobactam Sod (Zosyn 3.375gm+NS 50ml) 3.375 gm Q8H IV 10/02/25 17:00 10/12/25 16:59 10/04/25 08:53 3.375 GM Potassium Chloride 100 ml @ 100 mls/hr AD PRN IV POTASSIUM PROTOCOL 10/03/25 22:30 11/02/25 22:29 Potassium Chloride (K-Dur/Klor-Con 20meq) 20 meq AD PRN PO POTASSIUM PROTOCOL 10/03/25 22:30 11/02/25 22:29 Potassium Chloride (KCl 10% Elixir 20meq/15ml) 20 meq AD PRN PO POTASSIUM PROTOCOL 10/03/25 22:30 11/02/25 22:29 10/04/25 05:51 20 MEQ Sertraline HCl (ZOloft 50 mg tab) 100 mg HS PO 10/02/25 21:00 11/01/25 20:59 10/03/25 21:13 100 MG Sodium Chloride 1,000 ml @ 100 mls/hr Q10H IV 10/02/25 06:30 11/01/25 06:29 10/04/25 00:27 100 MLS/HR Vancomycin HCl 250 ml @ 125 mls/hr Q12H IV 10/02/25 19:00 10/03/25 18:49 DC 10/03/25 08:49 125 MLS/HR Vancomycin HCl 250 ml @ 125 mls/hr Q12H IV 10/03/25 22:00 10/04/25 06:12 DC 10/03/25 21:14 125 MLS/HR Vancomycin HCl 250 ml @ 125 mls/hr Q12H IV 10/04/25 09:00 10/08/25 08:59 10/04/25 08:53 125 MLS/HR Vancomycin HCl (Vancomycin Protocol) 1 each AD IV 10/02/25 17:00 10/16/25 16:59 UNV Vancomycin HCl (Vancomycin Protocol) 1 each AD IV 10/02/25 17:00 10/03/25 18:44 DC Vancomycin HCl (Vancomycin Protocol) 1 each AD IV 10/03/25 22:00 10/17/25 21:59 DIAGNOSTICS / RADIOLOGY: [ ] ASSESSMENT: Acute metabolic encephalopathy metabolic POA Sepsis, POA Upper respiratory infection, secondary to influenza type a, POA Right mastoiditis, POA Status post fall, POA Hyperglycemia, POA Chronic condition: Hypertension, dementia, hyperlipidemia Advanced dementia Mild malnutrition, POA PLAN: 85 year old male with past medical history of hypertension, hyperlipidemia, dementia, current smoker who presented to the emergency department with complaints of altered mental status, slurred speech, shuffling gait. Patient is started spiking fever, as high as 104.0. Upgraded to the ICU for close observation, then downgraded to the medical floor. Patient positive for influenza type A. CT head right mastoid opacification, suggestive of mastoiditis. Blood pressure 135/55, afebrile, saturating normal on room air. Awake, following simple commands. Hemoglobin 13.9, hematocrit 40.5. Potassium 3.4. Continue broad-spectrum IV antibiotics. Follow ID input recommendation. Monitor mental status. A.m. labs. We will request Physical therapy to evaluate the patient. Fall precautions CT chest abdomen and pelvis reported as follows: IMPRESSION: * Minimal bilateral pleural effusions with associated dependent basilar atelectasis and mild cardiomegaly, without CT evidence of lobar consolidation or a focal pneumonia. In the clinical context of suspected pneumonia, these findings may reflect volume status or early/treated infection; correlate with clinical course, laboratory markers, and prior chest radiographs. * Nonobstructing 4 mm calculus in the lower calyx of the right kidney and upper calyx of the left kidney and a simple 16 mm right midpole renal cyst, without hydronephrosis or CT evidence of obstructive uropathy. * Small hiatal hernia and multilevel degenerative changes in the thoracic and lumbar spine with healed fractures of the posterior left 6th and 7th ribs, compatible with chronic changes. * Mild cardiomegaly with [id number] coronary artery calcifications and mild aortic atherosclerotic calcification, consistent with chronic atherosclerotic cardiovascular disease. * Compared with the chest radiograph from 10/01/2025, which raised concern for possible pneumonia, the current noncontrast CT shows minimal effusions and basilar atelectasis without focal consolidation, suggesting no CT-confirmed lobar pneumonia at this time; interval change may reflect evolving or treated cardiopulmonary process, and continued clinical and radiographic follow-up should be guided by symptoms and examination findings.. NEURO: Minimize central acting medications as possible. Fall Precautions. Well lighted room through the day and minimize interruptions through the night to prevent acute delirium. PULMONARY: Supplemental 02 as needed BiPAP as necessary, for respiratory distress Titrate Fio2 to keep Spo2 > or = 90% DuoNebs and CPT as needed IS hourly while awake for pulmonary hygiene prn Out of bed to chair as tolerated Maintain aspiration precautions at all times CARDIOVASCULAR: Follow hemodynamics. Vital signs per facility protocol GI & NUTRITION: Continue nutritional support Aspirations precautions Prokinetic agents and laxatives as needed KIDNEYS & ELECTROLYTES: Strict monitoring of intake and output Daily weights Avoid nephrotoxic agents Monitor electrolytes and replace as needed Goal urine output of 30mL/hr or 0.5mL/kg/hr Medications to be dosed according to renal function. Avoid contrast if possible ENDOCRINE: Maintain blood glucose between 100-180 at all times. Insulin sliding scale for blood glucose management Hypoglycemia and hyperglycemia protocol in place INFECTIOUS DISEASE: Trend temperature, WBC and procalcitonin level Follow cultures, deescalate antibiotics as soon as possible. Panculture if new onset fever HEMATOLOGY & COAGULATION: Monitor H&H. Keep Hgb > 7 Transfuse 1 unit of PRBC for Hgb < 7 Transfuse 1 pack of platelets of platelets < 20, 000 Watch for any signs and symptoms of bleeding SKIN: Pressure ulcer prevention per facility protocol Specialty mattress as needed ORTHO/REHAB Continue PT/OT PRN: MEDICATIONS Tylenol 650 mg po every 4 hrs for fever zofran 4 mg IV every 6 hrs for n/v Hydralazine 5 mg IV every 4 hrs systolic pressure > 160 bowel regiment: lactulose 20 gm PO BID PRN constipation Supportive measures: Continue GI and DVT prophylaxis Disposition: Pending improvement in clinical condition All questions answered time spent: > 35 min BHAVYA SANTILLAN MD Oct 04, 2025 10:16
[2025-10-04] MEDS: PoTASSium chloRIDE 20MEQ ER 20 MEQ ERTAB PO ONE (10:39)
--- NOTE | 2025-10-04 13:49 | PN ---
[facility] PROGRESS NOTE Date Patient Seen: Oct 04, 2025 Time of Visit: 13:43 Supervising Physician: [Dr. Caldwell] Primary Care Physician: [Hospitalist] Outpatient Specialists: [ ] Inpatient Consults: [BIS] PROBLEM LIST: Acute metabolic encephalopathy versus infectious Influenza type A Mouth sore, likely viral Status post fall at home HTN Hyperlipidemia Dementia INTERVAL HISTORY: [Patient is evaluated at bedside. Vitals are within normal limits. He is saturating well on room air. Labs are grossly unremarkable. ABG is WNL. Per daughter at bedside, patient has decreased appetite, secondary to sores on his tongue. He is followed by ID and is on broad-spectrum empiric regimen. Continues on Tamiflu for flu A. Thank you for this interesting consult. We will sign off, but please feel free to re-consult as needed.] REVIEW OF SYSTEMS: 12 point ROS reviewed with patient. Pertinent positives mentioned above. Otherwise negative. PHYSICAL EXAM: GENERAL: alert, oriented to self HEENT: EOMI, Sclera non icteric, moist mucosa NECK: Supple, no JVD, trachea midline LUNGS: diminished HEART: Regular rate and rhythm. Normal S1 and S2, without murmurs ABD: Abdomen soft, nontender. Bowel sounds present EXT: No clubbing cyanosis or edema NEURO: Alert and oriented to person, follows commands Vital Signs (last 8hr) Date Time Temp Pulse Resp B/P (MAP) Pulse Ox O2 Delivery O2 Flow Rate FiO2 10/04/25 12:00 98.2 55 18 139/66 94 Room Air 10/04/25 09:31 96 Room Air* 0 21 10/04/25 08:00 97.9 65 16 125/55 96 Room Air LABS: Hematology Labs: Test 10/04/25 04:14 Range/Units White Blood Count 7.7 4.8-10.8 K/uL Red Blood Count 4.38 L 4.50-6.20 MIL/uL Hemoglobin 13.9 L 14.0-18.0 g/dL Hematocrit 40.5 L 42-54 % Mean Corpuscular Volume 92.5 79-99 fL Mean Corpuscular Hemoglobin 31.7 27.0-33.0 pg Mean Corpuscular Hemoglobin Concent 34.3 32.0-36.0 g/dL Red Cell Distribution Width 13.7 11.0-15.5 % Platelet Count 193 # 130-400 K/uL Mean Platelet Volume 9.8 7.5-10.5 fL Nucleated Red Blood Cells 0.0 0.0-0.19 % Chemistry Labs: Test 10/04/25 04:14 10/02/25 19:32 10/02/25 14:15 Range/Units Sodium Level 137 136-145 mmol/L Potassium Level 3.4 L 3.5-5.1 mmol/L Chloride Level 108 101-111 mmol/L Carbon Dioxide Level 20 L 21-32 mmol/L Blood Urea Nitrogen 10 7-18 mg/dL Creatinine 0.8 0.5-1.3 mg/dL Glomerular Filtration Rate Calc 88 >90 mL/min Random Glucose 138 H 70-105 mg/dL Total Calcium 8.1 L 8.5-10.1 mg/dL Magnesium Level 2.00 1.80-2.40 mg/dL Total Bilirubin 0.6 0.2-1.0 mg/dL Aspartate Amino Transf (AST/SGOT) 18 10-37 U/L Alanine Aminotransferase (ALT/SGPT) 25 12-78 U/L Alkaline Phosphatase 65 50-136 U/L Total Protein 6.3 6.0-8.3 g/dL Albumin 2.9 L 3.5-5.0 g/dL Whole Blood Glucose 146 H 70-110 MG/DL Ammonia < 10 L 11-32 umol/L Coagulation Labs: Test 10/02/25 17:11 Range/Units D-Dimer Quantitative (PE/DVT) 436 0-500 ng/mL DIAGNOSTICS / RADIOLOGY RESULTS: [ ] PLAN NEURO: Minimize central acting medications as possible. Maintain fall precautions, adequate lighting during the day PULMONARY: Supplemental 02 as needed. Maintain aspiration precautions at all times CARDIOVASCULAR: Follow hemodynamics. Vital signs per facility protocol GI & NUTRITION: Continue with nutritional support. Continue stool softeners and laxatives as needed. KIDNEYS & ELECTROLYTES: Strict monitoring of intake, output and overall fluid balance. Avoid nephrotoxic medications to the extent possible. Medications to be dosed according to renal function. Monitor electrolytes and replace as needed ENDOCRINE: Maintain blood glucose between 100-180 at all times. Hypoglycemia protocol in place INFECTIOUS DISEASE: Trend temperature, WBC and procalcitonin level Follow cultures, deescalate antibiotics as soon as possible. Panculture if new onset fever ONCOLOGY/HEMATOLOGY/COAGULATION: Monitor for s/s of bleeding Monitor hemoglobin, coagulation studies as needed SKIN: Pressure ulcer prevention per facility protocol Specialty mattress ORTHO/REHAB: Continue PT/OT Prophylaxis: Continue GI and DVT prophylaxis Code Status: Full Resuscitation Disposition: KELSI KRISHNAMURTHY Oct 04, 2025 13:49
--- NOTE | 2025-10-04 21:19 | PN ---
INFECTIOUS DISEASE FOLLOWUP NOTE SUBJECTIVE: The patient is seen and examined at bedside. No fever today. She has some cough, no hemoptysis or pleuritic pain. No dysuria, hematuria, no bleeding tendency. ____ PHYSICAL EXAMINATION: VITAL SIGNS: Temperature today 97.8. EYES: No icterus. Pupils equal and reactive. HENT: No oral thrush seen. Moist oral mucosa. NECK: Supple. No JVD or thyromegaly. LUNGS: Good air entry. No rales. No rhonchi. CARDIOVASCULAR: S1 and S2, regular. No murmur heard. ABDOMEN: Soft, nontender. Bowel sounds present. CENTRAL NERVOUS SYSTEM: Awake, confused. No focal deficits. SKIN: No rashes, no itchiness. LYMPHATIC: No peripheral lymphadenopathy. BACK: No deformities. No pressure ulcer. MUSCULOSKELETAL: No joint swelling. No erythema or tenderness. ASSESSMENT: An 85-year-old male. Current problems include: * Sepsis. * Pneumonia. * Viral influenza infection. * Chronic tobacco use. * Dementia. PLAN: * Continue Tamiflu. * Continue doxycycline. * Continue vancomycin. * Continue Zosyn. * Continue nutritional support. * Continue ____. * Patient will be followed up closely. TID: [id number] RECEIPT: [id number]
[2025-10-04] MEDS ORDERED: PHARMACY COMMUNICATION MISC SCH (22:30)
[2025-10-05] VITALS (7 sets, daily range): BP systolic 140–151; BP diastolic 58–78; PULSE 58–69; RESP 16–20; TEMP 98.1–98.3; O2SAT 96
[2025-10-05 04:24] LABS: NUCLEATED RED BLOOD CELLS 0.0 % (0.0-0.19); PLATELET COUNT (AUTO) 219.0 K/uL (130-400); RED BLOOD CELL COUNT(AUTO) 4.14 MIL/uL (4.50-6.20); RED CELL DISTRIBUTION WIDTH 13.5 % (11.0-15.5); WHITE BLOOD COUNT (AUTO) 6.8 K/uL (4.8-10.8)
[2025-10-05 04:41] LABS: ASPARTATE AMINOTRANSFERASE 18.0 U/L (10-37); CREATININE 0.8 mg/dL (0.5-1.3); GLOMERULAR FILTR. RATE CALC 88.0 mL/min (>90); GLUCOSE,RANDOM 122.0 mg/dL (70-105); SODIUM SERUM 138.0 mmol/L (136-145); TOTAL PROTEIN, SERUM 6.1 g/dL (6.0-8.3); UREA NITROGEN, BLOOD 6.0 mg/dL (7-18)
[2025-10-05] MEDS: MAGNESIUM 2GM PREMIX 50ML 50 ML IV PRN (05:22)
[2025-10-05] MEDS ORDERED: VANCOMYCIN 1G/250ML KIT 250 ML IV SCH (09:00)
[2025-10-05] MEDS: VANCOMYCIN 1G/250ML KIT 250 ML IV SCH (11:20)
--- NOTE | 2025-10-05 19:25 | PN ---
[facility] PROGRESS NOTE Date of Service: Oct 05, 2025 Time of Service: :24 SUBJECTIVE: 10/02 patient remains admitted to medical floor, seen and examined at bedside, the time of my visit the patient is comfortably in bed, not agitated, not combative. Daughter is at the bedside during my visit, the patient with advanced dementia, however he is usually more awake. Upon evaluation the patient withdrawing to painful stimulation, he was able to open eyes, open the mouth and showed the tongue. He is withdrawing to painful stimulation. We will looks dehydrated. BP 158/68, he has been spiking fever 102.6. Saturating normal on room air. CBC is unremarkable. Potassium level 3.3. Serology test positive for influenza type A. CT head done, no acute intracranial finding, right mastoid opacification suggestive of mastoiditis. Patient remains on respiratory isolation, continue Tamiflu 75 mg p.o. b.i.d.. Add Rocephin 1 g IV daily. Results of CT of the head discussed with the daughter, all questions answered. We will also do multivitamin 75 mL/hours, follow ABG, glucose level, clear liquid diet if able to tolerate. Follow a.m. labs. 10/03 patient is seen and examined at bedside, he was upgraded yesterday to the PCU secondary to high fever. Patient was placed on broad-spectrum IV antibiotics multivitamin IV. During my visit the patient is comfortably in bed, awake, following simple commands, not in distress, no chest pain, shortness shortness for breath, no nausea, no vomiting. He is getting IV fluids and IV antibiotics. Daughter is at the bedside. Blood pressure 134/63, afebrile, saturating normal on room air. White blood cell count of 10.4. Hemoglobin stable at 16.1. CMP is unremarkable. ABG with a in the normal range. Serology tests positive for influenza type A. Blood culture preliminary report no growth after 24 hours. Venous Doppler no evidence of DVT. CT chest abdomen and pelvis minimal bilateral pleural effusion with the associated dependent basilar atelectasis and mild cardiomegaly. No evidence of lobar consolidation or focal pneumoniae. Patient will be downgraded to medical floor, follow a.m. labs. PT to evaluate the patient. Discussed with the daughter at bedside, all questions answered, in agreement. CT chest abdomen and pelvis reported as follows: IMPRESSION: * Minimal bilateral pleural effusions with associated dependent basilar atelectasis and mild cardiomegaly, without CT evidence of lobar consolidation or a focal pneumonia. In the clinical context of suspected pneumonia, these findings may reflect volume status or early/treated infection; correlate with clinical course, laboratory markers, and prior chest radiographs. * Nonobstructing 4 mm calculus in the lower calyx of the right kidney and upper calyx of the left kidney and a simple 16 mm right midpole renal cyst, without hydronephrosis or CT evidence of obstructive uropathy. * Small hiatal hernia and multilevel degenerative changes in the thoracic and lumbar spine with healed fractures of the posterior left 6th and 7th ribs, compatible with chronic changes. * Mild cardiomegaly with [id number] coronary artery calcifications and mild aortic atherosclerotic calcification, consistent with chronic atherosclerotic cardiovascular disease. * Compared with the chest radiograph from 10/01/2025, which raised concern for possible pneumonia, the current noncontrast CT shows minimal effusions and basilar atelectasis without focal consolidation, suggesting no CT-confirmed lobar pneumonia at this time; interval change may reflect evolving or treated cardiopulmonary process, and continued clinical and radiographic follow-up should be guided by symptoms and examination findings. 10/04 85 year old male with past medical history of hypertension, hyperlipidemia, dementia, current smoker who presented to the emergency department with complaints of altered mental status, slurred speech, shuffling gait. Patient is started spiking fever, as high as 104.0. Upgraded to the ICU for close observation, then downgraded to the medical floor. Patient positive for influenza type A. CT head right mastoid opacification, suggestive of mastoiditis. Blood pressure 135/55, afebrile, saturating normal on room air. Awake, following simple commands. Hemoglobin 13.9, hematocrit 40.5. Potassium 3.4. Continue broad-spectrum IV antibiotics. Follow ID input recommendation. Monitor mental status. A.m. labs. We will request Physical therapy to evaluate the patient. Fall precautions. Daughter not in the room at the time of my visit. 10/05 85 year old male with past medical history of hypertension, hyperli pidemia, dementia, current smoker who presented to the emergency department with complaints of altered mental status, slurred speech, shuffling gait. Patient is started spiking fever, as high as 104.0. Upgraded to the ICU for close observation, then downgraded to the medical floor. Patient positive for influenza type A. CT head right mastoid opacification, suggestive of mastoiditis. . Awake, following simple commands. labs reviewed Continue broad-spectrum IV antibiotics. Follow ID input recommendation REVIEW OF SYSTEMS CONSTITUTIONAL: Denies fevers, chills, or night sweats. No unintentional weight loss reported. NEUROLOGICAL: Denies headache, amaurosis fugax, motor weakness, sensory deficit, vertigo/spinning sensation, gait abnormalities, or tremors. ENT: No hearing loss, otalgia, otorrhea, rhinitis, rhinorrhea, hoarseness, or sore throat. CARDIOVASCULAR: Denies any exertional angina, dyspnea on exertion, orthopnea, paroxysmal nocturnal dyspnea, palpitations, life-threatening arrhythmias, claudication. PULMONARY: Denies any shortness of breath, cough, phlegm/sputum, hemoptysis, pl euritic chest pain. SLEEP: Denies morning headaches, daytime somnolence or napping. Denies difficulty falling asleep, staying asleep, waking from sleep. Denies knowledge of snoring. GASTROINTESTINAL: Denies any type of dysphagia to either liquids or solids. Denies nausea, vomiting, pyrosis, early satiety, abdominal pain, diarrhea, constipation, or changes in stool consistency or caliber. Denies coffee-ground emesis, hematemesis, hematochezia, or melanotic stools. GENITOURINARY: Denies frequency, urgency, nocturia, hematuria or incontinence (Storage/Irritative symptoms.) Low urinary stream, straining to void, urinary intermittency or hesitancy, splitting of the voiding stream, terminal dribbling. ENDOCRINOLOGIC: Denies polyuria, polydipsia, polyphagia or heat/cold intolera nces. HEMATOLOGIC: Denies thrombophilia/previous clots, or coagulopathy/bleeding disorders. ONCOLOGIC: Denies personal history of malignancy. DERMATOLOGIC: Denies rashes or pruritus. PSYCHIATRIC: Denies any suicidal or homicidal ideation. Denies hallucinations. PHYSICAL EXAM GENERAL APPEARANCE: The patient is awake, alert, and oriented, in no acute cardiopulmonary distress. NEUROLOGICAL: Cranial nerves II-XII grossly intact. Motor is 5/5 in bilateral upper and lower extremities proximal to distal. No sensory deficits. HEENT: Face is symmetric. Pupils are equal and reactive. Extraocular movements are intact. NECK: Supple. No JVD. No thyromegaly. No submental, submandibular, pre- /postauricular, occipital or supraclavicular lymphadenopathy. CHEST: Normal chest expansion. No Telemetry. LUNGS: Absence of any rales, rhonchi or any wheezing. CARDIOVASCULAR: Regular. S1 and S2 normal. No appreciable rubs, murmurs or gallops. ABDOMEN: Soft, nontender, and nondistended. There is no rebound, voluntary guarding, or rigidity. : Deferred. No Barboza. EXTREMITIES: Non-edematous and not cyanotic. No clubbing. Good capillary refill. SKIN: No skin breakdown. Vital Signs (last 8hr) Date Time Temp Pulse Resp B/P (MAP) Pulse Ox O2 Delivery O2 Flow Rate FiO2 10/05/25 15:08 98.1 62 18 142/64 98 Room Air 10/05/25 12:58 98.2 63 16 147/58 94 Room Air LABS: Laboratory: Test 10/05/25 09:12 10/05/25 04:07 10/04/25 20:48 Range/Units Vancomycin Level 7.9 L 20.0-30.0 mcg/mL White Blood Count 6.8 4.8-10.8 K/uL Red Blood Count 4.14 L 4.50-6.20 MIL/uL Hemoglobin 13.3 L 14.0-18.0 g/dL Hematocrit 37.8 L 42-54 % Mean Corpuscular Volume 91.3 79-99 fL Mean Corpuscular Hemoglobin 32.1 27.0-33.0 pg Mean Corpuscular Hemoglobin Concent 35.2 32.0-36.0 g/dL Red Cell Distribution Width 13.5 11.0-15.5 % Platelet Count 219 130-400 K/uL Mean Platelet Volume 9.8 7.5-10.5 fL Nucleated Red Blood Cells 0.0 0.0-0.19 % Sodium Level 138 136-145 mmol/L Potassium Level 3.4 L 3.5-5.1 mmol/L Chloride Level 108 101-111 mmol/L Carbon Dioxide Level 22 21-32 mmol/L Blood Urea Nitrogen 6 L 7-18 mg/dL Creatinine 0.8 0.5-1.3 mg/dL Glomerular Filtration Rate Calc 88 >90 mL/min Random Glucose 122 H 70-105 mg/dL Total Calcium 8.1 L 8.5-10.1 mg/dL Magnesium Level 1.80 1.80-2.40 mg/dL Total Bilirubin 0.5 0.2-1.0 mg/dL Aspartate Amino Transf (AST/SGOT) 18 10-37 U/L Alanine Aminotransferase (ALT/SGPT) 28 12-78 U/L Alkaline Phosphatase 63 50-136 U/L Total Protein 6.1 6.0-8.3 g/dL Albumin 2.8 L 3.5-5.0 g/dL Vancomycin Level Trough 22.2 H 10.0-20.0 UG/ML Current Medications Medications (Trade) Dose Ordered Sig/Gianna Route PRN Reason Start Time Stop Time Status Last Admin Dose Admin Acetaminophen (TYLenol 325MG TAB) 650 mg Q6H PRN PO MILD PAIN (1-3) 10/02/25 11:00 11/01/25 10:59 10/03/25 05:27 650 MG Acetaminophen (TYLenol 650MG SUPPOSITORY) 650 mg Q4H PRN RC TEMPERATURE GREATER THAN 101.5 10/02/25 17:00 10/05/25 07:27 DC Acetaminophen (Tylenol 325mg Suppository) 650 mg Q4H PRN RC TEMPERATURE GREATER THAN 101.5 10/01/25 15:30 10/31/25 15:29 10/01/25 22:58 650 MG Acetaminophen (Tylenol 325mg Suppository) 650 mg Q6H PRN RC MILD PAIN (1-3) 10/01/25 15:30 10/31/25 15:29 Amlodipine Besylate (NorvASC 5MG TAB) 5 mg DAILY PO 10/02/25 11:00 11/01/25 10:59 10/05/25 09:06 5 MG Atorvastatin Calcium (LIPItor 10MG) 20 mg HS PO 10/02/25 21:00 10/05/25 07:28 DC 10/04/25 20:03 20 MG Atorvastatin Calcium (LIPItor 20MG) 20 mg HS PO 10/05/25 21:00 11/01/25 20:59 Ceftriaxone Sodium (ROCEphine 1G INJ) 1 gm Q24H IVPB 10/02/25 11:00 10/03/25 03:05 DC Cetirizine HCl (ZYRtec 5 MG TABLET) 10 mg DAILY PO 10/03/25 09:00 11/02/25 08:59 10/05/25 09:06 10 MG Doxycycline Hyclate (Doxycycline Hyclate) 100 mg Q12H PO 10/03/25 11:30 10/13/25 11:29 10/05/25 13:29 100 MG Fish Oil (Fish Oil 1000 Mg/Cap) 1,000 mg DAILY PO 10/03/25 09:00 11/02/25 08:59 10/05/25 09:06 1,000 MG Hydralazine HCl (APRESOLine 20MG INJ) 5 mg Q6H PRN IV ADMINISTER FOR SBP > 160 10/02/25 11:00 11/01/25 10:59 Losartan Potassium (CozAAR 25MG TAB) 12.5 mg DAILY PO 10/03/25 09:00 11/02/25 08:59 10/05/25 09:06 12.5 MG Magnesium Sulfate 50 ml @ 0 mls/hr PROTOCOL PRN IV hypomagnesemia 10/05/25 05:30 11/04/25 05:29 10/05/25 05:22 15 MLS/HR Memantine (NAmenDA 5 MG TAB) 2.5 mg DAILY PO 10/03/25 09:00 11/02/25 08:59 10/05/25 09:06 2.5 MG Multivitamins/ Minerals 10 ml/ Folic Acid 1 mg/ Thiamine HCl 100 mg/Sodium Chloride 1,000 ml @ 75 mls/hr DAILY IV 10/03/25 09:00 10/02/25 14:15 DC Multivitamins/ Minerals 10 ml/ Folic Acid 1 mg/ Thiamine HCl 100 mg/Sodium Chloride 1,000 ml @ 75 mls/hr Q24H IV 10/02/25 15:00 10/05/25 04:19 DC 10/04/25 15:14 75 MLS/HR Nicotine (Nicoderm) 14 mg DAILY TD 10/02/25 09:00 11/01/25 08:59 10/04/25 08:54 14 MG Nystatin (NYSTatin 744374 UNIT/ML 5ML UDCUP) 5 ml ONCE PO 10/04/25 17:00 10/05/25 00:01 DC 10/04/25 16:53 5 ML Nystatin (NYSTatin 425831 UNIT/ML 5ML UDCUP) 5 ml ONCE PRN PO ALTERNATE ROUTE 10/04/25 15:00 10/04/25 16:45 DC Ondansetron HCl (zoFRAN 4MG INJ) 4 mg Q6H PRN IVP NAUSEA/VOMITING 10/01/25 15:30 10/31/25 15:29 Oseltamivir Phosphate (Tamiflu) 75 mg BID PO 10/02/25 09:00 10/07/25 08:59 10/05/25 09:05 75 MG Pantoprazole Sodium (PROTonix 40MG INJ) 40 mg DAILY IVP 10/02/25 15:00 11/01/25 14:59 10/05/25 09:04 40 MG Pharmacy Profile Note (Pharmacy Communication) 1 each ONCE MISC 10/04/25 22:30 10/05/25 00:01 DC Piperacillin Sod/ Tazobactam Sod (Zosyn 3.375gm+NS 50ml) 3.375 gm Q8H IV 10/02/25 17:00 10/12/25 16:59 10/05/25 17:31 3.375 GM Potassium Chloride 100 ml @ 100 mls/hr AD PRN IV POTASSIUM PROTOCOL 10/03/25 22:30 11/02/25 22:29 Potassium Chloride (K-Dur/Klor-Con 20meq) 20 meq AD PRN PO POTASSIUM PROTOCOL 10/03/25 22:30 11/02/25 22:29 Potassium Chloride (KCl 10% Elixir 20meq/15ml) 20 meq AD PRN PO POTASSIUM PROTOCOL 10/03/25 22:30 11/02/25 22:29 10/05/25 09:22 20 MEQ Sertraline HCl (ZOloft 50 mg tab) 100 mg HS PO 10/02/25 21:00 11/01/25 20:59 10/04/25 20:03 100 MG Sodium Chloride 1,000 ml @ 100 mls/hr Q10H IV 10/02/25 06:30 11/01/25 06:29 10/05/25 05:31 100 MLS/HR Vancomycin HCl 250 ml @ 125 mls/hr Q12H IV 10/02/25 19:00 10/03/25 18:49 DC 10/03/25 08:49 125 MLS/HR Vancomycin HCl 250 ml @ 125 mls/hr Q12H IV 10/03/25 22:00 10/04/25 06:12 DC 10/03/25 21:14 125 MLS/HR Vancomycin HCl 250 ml @ 125 mls/hr Q12H IV 10/04/25 09:00 10/05/25 00:01 DC 10/04/25 20:03 125 MLS/HR Vancomycin HCl 250 ml @ 125 mls/hr Q24H IV 10/04/25 09:00 10/05/25 07:33 DC Vancomycin HCl 250 ml @ 125 mls/hr Q24H IV 10/05/25 09:00 10/05/25 09:43 DC Vancomycin HCl 250 ml @ 125 mls/hr Q24H IV 10/05/25 10:00 10/15/25 09:59 10/05/25 11:20 125 MLS/HR Vancomycin HCl (Vancomycin Protocol) 1 each AD IV 10/02/25 17:00 10/16/25 16:59 UNV Vancomycin HCl (Vancomycin Protocol) 1 each AD IV 10/02/25 17:00 10/03/25 18:44 DC Vancomycin HCl (Vancomycin Protocol) 1 each AD IV 10/03/25 22:00 10/17/25 21:59 DIAGNOSTICS / RADIOLOGY: [ ] ASSESSMENT: Acute metabolic encephalopathy metabolic POA Sepsis, POA Upper respiratory infection, secondary to influenza type a, POA Right mastoiditis, POA Status post fall, POA Hyperglycemia, POA Chronic condition: Hypertension, dementia, hyperlipidemia Advanced dementia Mild malnutrition, POA PLAN: 85 year old male with past medical history of hypertension, hyperlipidemia, dem entia, current smoker who presented to the emergency department with complaints of altered mental status, slurred speech, shuffling gait. Patient is started spiking fever, as high as 104.0. Upgraded to the ICU for close observation, then downgraded to the medical floor. Patient positive for influenza type A. CT head right mastoid opacification, suggestive of mastoiditis. Blood pressure 135/55, afebrile, saturating normal on room air. Awake, following simple commands. Hemoglobin 13.9, hematocrit 40.5. Potassium 3.4. Continue broad- spectrum IV antibiotics. Follow ID input recommendation. Monitor mental status. A.m. labs. We will request Physical therapy to evaluate the patient. Fall precautions CT chest abdomen and pelvis reported as follows: IMPRESSION: * Minimal bilateral pleural effusions with associated dependent basilar atelectasis and mild cardiomegaly, without CT evidence of lobar consolidation or a focal pneumonia. In the clinical context of suspected pneumonia, these findings may reflect volume status or early/treated infection; correlate with clinical course, laboratory markers, and prior chest radiographs. * Nonobstructing 4 mm calculus in the lower calyx of the right kidney and upper calyx of the left kidney and a simple 16 mm right midpole renal cyst, without hydronephrosis or CT evidence of obstructive uropathy. * Small hiatal hernia and multilevel degenerative changes in the thoracic and lumbar spine with healed fractures of the posterior left 6th and 7th ribs, compatible with chronic changes. * Mild cardiomegaly with [id number] coronary artery calcifications and mild aortic atherosclerotic calcification, consistent with chronic atherosclerotic cardiovascular disease. * Compared with the chest radiograph from 10/01/2025, which raised concern for possible pneumonia, the current noncontrast CT shows minimal effusions and basilar atelectasis without focal consolidation, suggesting no CT-confirmed lobar pneumonia at this time; interval change may reflect evolving or treated cardiopulmonary process, and continued clinical and radiographic follow-up should be guided by symptoms and examination findings.. NEURO: Minimize central acting medications as possible. Fall Precautions. Well lighted room through the day and minimize interruptions through the night to prevent acute delirium. PULMONARY: Supplemental 02 as needed BiPAP as necessary, for respiratory distress Titrate Fio2 to keep Spo2 > or = 90% DuoNebs and CPT as needed IS hourly while awake for pulmonary hygiene prn Out of bed to chair as tolerated Maintain aspiration precautions at all times CARDIOVASCULAR: Follow hemodynamics. Vital signs per facility protocol GI & NUTRITION: Continue nutritional support Aspirations precautions Prokinetic agents and laxatives as needed KIDNEYS & ELECTROLYTES: Strict monitoring of intake and output Daily weights Avoid nephrotoxic agents Monitor electrolytes and replace as needed Goal urine output of 30mL/hr or 0.5mL/kg/hr Medications to be dosed according to renal function. Avoid contrast if possible ENDOCRINE: Maintain blood glucose between 100-180 at all times. Insulin sliding scale for blood glucose management Hypoglycemia and hyperglycemia protocol in place INFECTIOUS DISEASE: Trend temperature, WBC and procalcitonin level Follow cultures, deescalate antibiotics as soon as possible. Panculture if new onset fever HEMATOLOGY & COAGULATION: Monitor H&H. Keep Hgb > 7 Transfuse 1 unit of PRBC for Hgb < 7 Transfuse 1 pack of platelets of platelets < 20, 000 Watch for any signs and symptoms of bleeding SKIN: Pressure ulcer prevention per facility protocol Specialty mattress as needed ORTHO/REHAB Continue PT/OT PRN: MEDICATIONS Tylenol 650 mg po every 4 hrs for fever zofran 4 mg IV every 6 hrs for n/v Hydralazine 5 mg IV every 4 hrs systolic pressure > 160 bowel regiment: lactulose 20 gm PO BID PRN constipation Supportive measures: Continue GI and DVT prophylaxis Disposition: Pending improvement in clinical condition All questions answered time spent: > 35 min MIRLANDE MEYER MD Oct 05, 2025 19:25
--- NOTE | 2025-10-05 23:07 | NUR ---
Behavior Patient reoriented back to bed, out of bed every 5 minutes. Alertx1-2. Hx of dementia. Paged Cheri Gary NP new order for one to one sitter.
[2025-10-06] VITALS (7 sets, daily range): BP systolic 143–155; BP diastolic 66–80; PULSE 59–66; RESP 17–20; TEMP 97.8–98.5; O2SAT 94–99
[2025-10-06] MEDS ORDERED: MIRT-72 PO (09:26)
--- NOTE | 2025-10-06 09:29 | NUR ---
MEDICATION UPDATE PER PATIENT'S DAUGHTER CLEINA-REPORTS PATIENT WILL START TO BECOME AGGRESSIVE IF NOT SLEEPING WELL. DAUGHTER REPORTS GIVING PATIENT PRN MIRTAZAPINE PRN FOR SLEEP. LAST TAKEN TWO MONTHS AGO. DAUGHTER WANTED TO GIVE PATIENT A DOSE NOW. INSTRUCTED DAUGHTER TO NOT GIVE HOME MEDICATIONS. INFORMED DAUGHTER WILL DISCUSS WITH PHYSICIAN FIRST. MEDICATION ADDED TO HOME LIST. DAUGHTER VERBALIZED UNDERSTANDING.
--- NOTE | 2025-10-06 17:32 | NUR ---
HOME MED UPDATE DR. NOGUEIRA ROUNDING ON UNIT ASKED ABOUT RESTARTING PATIENT ON MIRTAZAPINE FROM HOME MEDS DUE TO RESTLESSNESS AT NIGHT, OKAY RESTARTED MED FROM RECONCILE LIST
--- NOTE | 2025-10-06 18:10 | PN ---
INFECTIOUS DISEASE PROGRESS NOTE Date of Service: Oct 06, 2025 SUBJECTIVE: [ ] PHYSICAL EXAM EYES: Anicteric. Pupils equal and reactive. HENT: No oral thrush seen, moist Oral mucosa NECK: Supple, no JVD or thyromegaly. LUNGS: Good air entry. No rales, no rhonchi. CARDIOVASCULAR: S1, S2 regular. No murmur heard. ABDOMEN: Soft, non tender, bowel sounds present, no organomegaly CENTRAL NERVOUS SYSTEM: Awake, alert, oriented x 3. No focal deficits. SKIN: No rashes, no swelling. LYMPHATICS: No peripheral lymphadenopathy MUSCULOSKELETAL: No joint swelling, erythema or tenderness. EXTREMITIES: No cyanosis or clubbing BACK: No deformity, no pressure ulcer. GENITOURINARY: No dysuria or hematuria Vital Sign (Last 12 Hours) 10/06/25 10/06/25 10/06/25 07:44 11:34 12:40 Temp 98.4 98.4 Pulse 62 65 Resp 18 18 B/P (MAP) 146/80 143/69 Pulse Ox 94 99 95 O2 Delivery Room Air Room Air* Room Air O2 Flow Rate 0 FiO2 21 Intake & Output (last 24hrs) 10/05/25 10/05/25 10/06/25 15:00 23:00 07:00 Intake Total 320.0 ml 60.0 ml Balance 320.0 ml 60.0 ml LABS: Laboratory: Test 10/05/25 09:12 10/05/25 04:07 10/04/25 20:48 Range/Units Vancomycin Level 7.9 L 20.0-30.0 mcg/mL White Blood Count 6.8 4.8-10.8 K/uL Red Blood Count 4.14 L 4.50-6.20 MIL/uL Hemoglobin 13.3 L 14.0-18.0 g/dL Hematocrit 37.8 L 42-54 % Mean Corpuscular Volume 91.3 79-99 fL Mean Corpuscular Hemoglobin 32.1 27.0-33.0 pg Mean Corpuscular Hemoglobin Concent 35.2 32.0-36.0 g/dL Red Cell Distribution Width 13.5 11.0-15.5 % Platelet Count 219 130-400 K/uL Mean Platelet Volume 9.8 7.5-10.5 fL Nucleated Red Blood Cells 0.0 0.0-0.19 % Sodium Level 138 136-145 mmol/L Potassium Level 3.4 L 3.5-5.1 mmol/L Chloride Level 108 101-111 mmol/L Carbon Dioxide Level 22 21-32 mmol/L Blood Urea Nitrogen 6 L 7-18 mg/dL Creatinine 0.8 0.5-1.3 mg/dL Glomerular Filtration Rate Calc 88 >90 mL/min Random Glucose 122 H 70-105 mg/dL Total Calcium 8.1 L 8.5-10.1 mg/dL Magnesium Level 1.80 1.80-2.40 mg/dL Total Bilirubin 0.5 0.2-1.0 mg/dL Aspartate Amino Transf (AST/SGOT) 18 10-37 U/L Alanine Aminotransferase (ALT/SGPT) 28 12-78 U/L Alkaline Phosphatase 63 50-136 U/L Total Protein 6.1 6.0-8.3 g/dL Albumin 2.8 L 3.5-5.0 g/dL Vancomycin Level Trough 22.2 H 10.0-20.0 UG/ML DIAGNOSTICS / RADIOLOGY: PATIENT: TAMIR OWUSU MR#: [id number] : 1940 SEX: M AGE: 85 LOCATION: [facility] ORDER STATUS: ADM IN REPORT#: [id number] SERVICE 163 REASON: POSSIBLE PNEUMONIA ORDERING PHYSICIAN: BHAVYA SANTILLAN MD PROCEDURE: CHESTAB WO - CT CHEST ABDOMEN W/O CONTRAST EXAM: CT SCAN OF THE CHEST, ABDOMEN, AND PELVIS WITHOUT CONTRAST Clinical statement: Possible pneumonia. STUDY PROTOCOL: CT radiation dose protocol was performed in accordance with the principles of ALARA. A multislice CT scan of the chest, abdomen, and pelvis was done without intravenous contrast. Sections were obtained from the thoracic inlet through the pelvis. RADIATION DOSE: Not provided. CONTRAST: No intravenous contrast administered. COMPARISON: Chest radiograph from 10/01/2025. FINDINGS: CHEST: Soft tissues: No anterior chest wall mass or axillary lymphadenopathy is identified. Lungs and large airways: Tracheobronchial tree is patent. No discrete pulmonary nodule or focal lobar consolidation is seen. Dependent subsegmental atelectasis is present at the lung bases. Pleura: No pleural mass is identified. There are minimal bilateral pleural effusions with associated basilar atelectasis. No pneumothorax. Heart and pericardium: Heart size is mildly enlarged, compatible with mild cardiomegaly. No pericardial effusion is seen. Xows-sa-wykvaqal coronary artery calcifications are present. Aorta: Thoracic aorta is normal in caliber without aneurysm. Mild aortic wall calcifications are present. Lymph nodes: No pathologically enlarged mediastinal or hilar lymph nodes are identified. Mediastinum and rebeka: Mediastinal contours are unremarkable. Hilar structures are within normal limits. Chest wall and lower neck: No chest wall mass or abnormality of the visualized lower neck is seen. Bones/joints: No acute thoracic vertebral or rib fracture is identified. There are healed fractures of the posterior aspects of the left 6th and 7th ribs. Mild degenerative changes are present in the visualized spine. Upper abdomen: Visualized upper abdominal structures are more fully described in the abdomen and pelvis section below. ABDOMEN AND PELVIS: LIVER: Normal size, morphology, and attenuation with smooth margins. No focal hepatic lesion or calcification is seen. No intrahepatic or extrahepatic biliary ductal dilatation is identified. Jordon hepatis is unremarkable. Portal vein, hepatic veins, and IVC are normal in caliber. GALL BLADDER: Normal wall thickness and smooth contour. Lumen demonstrates uniform fluid attenuation without visible gallstones, calcifications, or mass. Pericholecystic fat and the cystic duct appear normal. PANCREAS: Normal in size, contour, and attenuation. Main pancreatic duct is not dilated. No peripancreatic fat stranding or fluid collection. SPLEEN: Normal size, morphology, and attenuation without focal lesion. KIDNEYS: Both kidneys are normal in size, shape, position, and attenuation. No renal mass is seen. A simple cyst measuring approximately 16 mm is present in the midpole of the right kidney. A nonobstructing calculus measuring approximately 4 mm is present in the lower calyx of the right kidney and the upper calyx of the left kidney. No hydronephrosis or other CT evidence of obstructive uropathy. GIT /T/ PERITONEAL CAVITY: Small hiatal hernia is present. Stomach is distended but otherwise unremarkable; gastroesophageal junction, pylorus, and duodenum appear normal. Jejunal and ileal loops are normal in caliber and distribution with preserved wall thickness and mucosal pattern. No evidence of acute appendicitis. Large bowel loops are normal in caliber without wall thickening or pericolic inflammatory changes. No free intraperitoneal fluid or free air is identified. Mesenteric fat and omentum are normal. LYMPHNODES: No pathologically enlarged abdominal or pelvic lymph nodes are identified. RETROPERITONEUM: Both adrenal glands are normal in morphology and attenuation. Aorta and IVC are normal in position and caliber with mild aortic wall calcification. No retroperitoneal mass or hematoma. MUSCULOSKELETAL: Degenerative changes are present in the dorsolumbar spine with multilevel spondylosis. No acute osseous abnormality. OTHER: Extra-abdominal and paraspinal soft tissues are unremarkable. IMPRESSION: * Minimal bilateral pleural effusions with associated dependent basilar atelectasis and mild cardiomegaly, without CT evidence of lobar consolidation or a focal pneumonia. In the clinical context of suspected pneumonia, these findings may reflect volume status or early/treated infection; correlate with clinical course, laboratory markers, and prior chest radiographs. * Nonobstructing 4 mm calculus in the lower calyx of the right kidney and upper calyx of the left kidney and a simple 16 mm right midpole renal cyst, without hydronephrosis or CT evidence of obstructive uropathy. * Small hiatal hernia and multilevel degenerative changes in the thoracic and lumbar spine with healed fractures of the posterior left 6th and 7th ribs, compatible with chronic changes. * Mild cardiomegaly with [id number] coronary artery calcifications and mild aortic atherosclerotic calcification, consistent with chronic atherosclerotic cardiovascular disease. * Compared with the chest radiograph from 10/01/2025, which raised concern for possible pneumonia, the current noncontrast CT shows minimal effusions and basilar atelectasis without focal consolidation, suggesting no CT-confirmed lobar pneumonia at this time; interval change may reflect evolving or treated cardiopulmonary process, and continued clinical and radiographic follow-up should be guided by symptoms and examination findings. /[place] DICTATED BY: VALERIA MORA MD DATE: 10/02/251913 ASSESSMENT: Pneumonia. Positive Viral influenza type A Sepsis. Encephalopathy. Chronic tobacco use. PLAN: Continue vancomycin. Continue doxycycline. Continue Zosyn. Continue Tamiflu. Fall precautions. This case was reviewed and discussed with my supervising physician Dr. Blackman and the above assessment and plan was formulated and agreed upon. ATTESTATION BY PHYSICIAN I have seen and examined the patient. I reviewed the documentation, medical decision making, and treatment plan as noted by the mid-level provider above. I agree with the findings and plan of care. ALVARO BLACKMAN MD, [facility] Oct 06, 2025 18:10
--- NOTE | 2025-10-06 19:13 | PN ---
INFECTIOUS DISEASE FOLLOWUP NOTE DATE OF SERVICE: 10/05/2025 SUBJECTIVE: The patient is seen and examined at bedside and she has some cough. No hemoptysis or pleuritic pain. No chest pain. No orthopnea. No dysuria or hematuria. Tolerating orally. No bleeding tendencies. No rashes or itchiness. . PHYSICAL EXAMINATION: VITAL SIGNS: Temperature: 97.3. EYES: No icterus. Pupils equal and reactive. HENT: No oral thrush seen. Moist oral mucosa. NECK: Supple. No JVD or thyromegaly. LUNGS: Crackles bilaterally. No rhonchi. CARDIOVASCULAR: S1 and S2, regular. No murmur heard. ABDOMEN: Soft, nontender. Bowel sound is present. CENTRAL NERVOUS SYSTEM: Awake, alert, oriented x 3. No focal deficits. SKIN: No rashes, no itchiness. LYMPHATIC: No peripheral lymphadenopathy. BACK: No deformity or pressure ulcer. ASSESSMENT: An 85-year-old male admitted with fever and chills. Current problems include: * Sepsis. * Pneumonia. * Viral influenza infection. * Obesity. * Encephalopathy. * Chronic tobacco use. PLAN: * Continue Tamiflu. * Continue doxycycline. * Continue Zosyn. * Continue vancomycin. * Continue nutritional support. * Monitor electrolytes. * The patient will be followed closely. TID: [id number] RECEIPT: [id number]
--- NOTE | 2025-10-06 20:21 | PN ---
[facility] PROGRESS NOTE Date of Service: Oct 06, 2025 Time of Service: : SUBJECTIVE: 10/02 patient remains admitted to medical floor, seen and examined at bedside, the time of my visit the patient is comfortably in bed, not agitated, not combative. Daughter is at the bedside during my visit, the patient with advanced dementia, however he is usually more awake. Upon evaluation the patient withdrawing to painful stimulation, he was able to open eyes, open the mouth and showed the tongue. He is withdrawing to painful stimulation. We will looks dehydrated. BP 158/68, he has been spiking fever 102.6. Saturating normal on room air. CBC is unremarkable. Potassium level 3.3. Serology test positive for influenza type A. CT head done, no acute intracranial finding, right mastoid opacification suggestive of mastoiditis. Patient remains on respiratory isolation, continue Tamiflu 75 mg p.o. b.i.d.. Add Rocephin 1 g IV daily. Results of CT of the head discussed with the daughter, all questions answered. We will also do multivitamin 75 mL/hours, follow ABG, glucose level, clear liquid diet if able to tolerate. Follow a.m. labs. 10/03 patient is seen and examined at bedside, he was upgraded yesterday to the PCU secondary to high fever. Patient was placed on broad-spectrum IV antibiotics multivitamin IV. During my visit the patient is comfortably in bed, awake, following simple commands, not in distress, no chest pain, shortness shortness for breath, no nausea, no vomiting. He is getting IV fluids and IV antibiotics. Daughter is at the bedside. Blood pressure 134/63, afebrile, saturating normal on room air. White blood cell count of 10.4. Hemoglobin stable at 16.1. CMP is unremarkable. ABG with a in the normal range. Serology tests positive for influenza type A. Blood culture preliminary report no growth after 24 hours. Venous Doppler no evidence of DVT. CT chest abdomen and pelvis minimal bilateral pleural effusion with the associated dependent basilar atelectasis and mild cardiomegaly. No evidence of lobar consolidation or focal pneumoniae. Patient will be downgraded to medical floor, follow a.m. labs. PT to evaluate the patient. Discussed with the daughter at bedside, all questions answered, in agreement. CT chest abdomen and pelvis reported as follows: IMPRESSION: * Minimal bilateral pleural effusions with associated dependent basilar atelectasis and mild cardiomegaly, without CT evidence of lobar consolidation or a focal pneumonia. In the clinical context of suspected pneumonia, these findings may reflect volume status or early/treated infection; correlate with clinical course, laboratory markers, and prior chest radiographs. * Nonobstructing 4 mm calculus in the lower calyx of the right kidney and upper calyx of the left kidney and a simple 16 mm right midpole renal cyst, without hydronephrosis or CT evidence of obstructive uropathy. * Small hiatal hernia and multilevel degenerative changes in the thoracic and lumbar spine with healed fractures of the posterior left 6th and 7th ribs, compatible with chronic changes. * Mild cardiomegaly with [id number] coronary artery calcifications and mild aortic atherosclerotic calcification, consistent with chronic atherosclerotic cardiovascular disease. * Compared with the chest radiograph from 10/01/2025, which raised concern for possible pneumonia, the current noncontrast CT shows minimal effusions and basilar atelectasis without focal consolidation, suggesting no CT-confirmed lobar pneumonia at this time; interval change may reflect evolving or treated cardiopulmonary process, and continued clinical and radiographic follow-up should be guided by symptoms and examination findings. 10/04 85 year old male with past medical history of hypertension, hyperlipidemia, dementia, current smoker who presented to the emergency department with complaints of altered mental status, slurred speech, shuffling gait. Patient is started spiking fever, as high as 104.0. Upgraded to the ICU for close observation, then downgraded to the medical floor. Patient positive for influenza type A. CT head right mastoid opacification, suggestive of mastoiditis. Blood pressure 135/55, afebrile, saturating normal on room air. Awake, following simple commands. Hemoglobin 13.9, hematocrit 40.5. Potassium 3.4. Continue broad-spectrum IV antibiotics. Follow ID input recommendation. Monitor mental status. A.m. labs. We will request Physical therapy to evaluate the patient. Fall precautions. Daughter not in the room at the time of my visit. 10/05 85 year old male with past medical history of hypertension, hyperli pidemia, dementia, current smoker who presented to the emergency department with complaints of altered mental status, slurred speech, shuffling gait. Patient is started spiking fever, as high as 104.0. Upgraded to the ICU for close observation, then downgraded to the medical floor. Patient positive for influenza type A. CT head right mastoid opacification, suggestive of mastoiditis. . Awake, following simple commands. labs reviewed Continue broad-spectrum IV antibiotics. Follow ID input recommendation 10/06 . No overnight issues/ tolerating antibiotics REVIEW OF SYSTEMS CONSTITUTIONAL: Denies fevers, chills, or night sweats. No unintentional weight loss reported. NEUROLOGICAL: Denies headache, amaurosis fugax, motor weakness, sensory deficit, vertigo/spinning sensation, gait abnormalities, or tremors. ENT: No hearing loss, otalgia, otorrhea, rhinitis, rhinorrhea, hoarseness, or sore throat. CARDIOVASCULAR: Denies any exertional angina, dyspnea on exertion, orthopnea, paroxysmal nocturnal dyspnea, palpitations, life-threatening arrhythmias, claudication. PULMONARY: Denies any shortness of breath, cough, phlegm/sputum, hemoptysis, pleuritic chest pain. SLEEP: Denies morning headaches, daytime somnolence or napping. Denies difficulty falling asleep, staying asleep, waking from sleep. Denies knowledge of snoring. GASTROINTESTINAL: Denies any type of dysphagia to either liquids or solids. Denies nausea, vomiting, pyrosis, early satiety, abdominal pain, diarrhea, constipation, or changes in stool consistency or caliber. Denies coffee-ground emesis, hematemesis, hematochezia, or melanotic stools. GENITOURINARY: Denies frequency, urgency, nocturia, hematuria or incontinence (Storage/Irritative symptoms.) Low urinary stream, straining to void, urinary intermittency or hesitancy, splitting of the voiding stream, terminal dribbling. ENDOCRINOLOGIC: Denies polyuria, polydipsia, polyphagia or heat/cold intolerances. HEMATOLOGIC: Denies thrombophilia/previous clots, or coagulopathy/bleeding disorders. ONCOLOGIC: Denies personal history of malignancy. DERMATOLOGIC: Denies rashes or pruritus. PSYCHIATRIC: Denies any suicidal or homicidal ideation. Denies hallucinations. PHYSICAL EXAM GENERAL APPEARANCE: The patient is awake, alert, and oriented, in no acute cardiopulmonary distress. NEUROLOGICAL: Cranial nerves II-XII grossly intact. Motor is 5/5 in bilateral upper and lower extremities proximal to distal. No sensory deficits. HEENT: Face is symmetric. Pupils are equal and reactive. Extraocular movements are intact. NECK: Supple. No JVD. No thyromegaly. No submental, submandibular, pre- /postauricular, occipital or supraclavicular lymphadenopathy. CHEST: Normal chest expansion. No Telemetry. LUNGS: Absence of any rales, rhonchi or any wheezing. CARDIOVASCULAR: Regular. S1 and S2 normal. No appreciable rubs, murmurs or gallops. ABDOMEN: Soft, nontender, and nondistended. There is no rebound, voluntary guarding, or rigidity. : Deferred. No Barboza. EXTREMITIES: Non-edematous and not cyanotic. No clubbing. Good capillary refill. SKIN: No skin breakdown. Vital Signs (last 8hr) Date Time Temp Pulse Resp B/P (MAP) Pulse Ox O2 Delivery O2 Flow Rate FiO2 10/06/25 16:00 98.2 63 18 144/66 95 Room Air 10/06/25 12:40 98.4 65 18 143/69 95 Room Air LABS: Laboratory: Test 10/06/25 19:16 10/05/25 09:12 10/05/25 04:07 10/04/25 20:48 Range/Units Potassium Level 3.4 L 3.5-5.1 mmol/L Vancomycin Level 7.9 L 20.0-30.0 mcg/mL White Blood Count 6.8 4.8-10.8 K/uL Red Blood Count 4.14 L 4.50-6.20 MIL/uL Hemoglobin 13.3 L 14.0-18.0 g/dL Hematocrit 37.8 L 42-54 % Mean Corpuscular Volume 91.3 79-99 fL Mean Corpuscular Hemoglobin 32.1 27.0-33.0 pg Mean Corpuscular Hemoglobin Concent 35.2 32.0-36.0 g/dL Red Cell Distribution Width 13.5 11.0-15.5 % Platelet Count 219 130-400 K/uL Mean Platelet Volume 9.8 7.5-10.5 fL Nucleated Red Blood Cells 0.0 0.0-0.19 % Sodium Level 138 136-145 mmol/L Chloride Level 108 101-111 mmol/L Carbon Dioxide Level 22 21-32 mmol/L Blood Urea Nitrogen 6 L 7-18 mg/dL Creatinine 0.8 0.5-1.3 mg/dL Glomerular Filtration Rate Calc 88 >90 mL/min Random Glucose 122 H 70-105 mg/dL Total Calcium 8.1 L 8.5-10.1 mg/dL Magnesium Level 1.80 1.80-2.40 mg/dL Total Bilirubin 0.5 0.2-1.0 mg/dL Aspartate Amino Transf (AST/SGOT) 18 10-37 U/L Alanine Aminotransferase (ALT/SGPT) 28 12-78 U/L Alkaline Phosphatase 63 50-136 U/L Total Protein 6.1 6.0-8.3 g/dL Albumin 2.8 L 3.5-5.0 g/dL Vancomycin Level Trough 22.2 H 10.0-20.0 UG/ML Current Medications Medications (Trade) Dose Ordered Sig/Gianna Route PRN Reason Start Time Stop Time Status Last Admin Dose Admin Acetaminophen (TYLenol 325MG TAB) 650 mg Q6H PRN PO MILD PAIN (1-3) 10/02/25 11:00 11/01/25 10:59 10/03/25 05:27 650 MG Acetaminophen (TYLenol 650MG SUPPOSITORY) 650 mg Q4H PRN RC TEMPERATURE GREATER THAN 101.5 10/02/25 17:00 10/05/25 07:27 DC Acetaminophen (Tylenol 325mg Suppository) 650 mg Q4H PRN RC TEMPERATURE GREATER THAN 101.5 10/01/25 15:30 10/31/25 15:29 10/01/25 22:58 650 MG Acetaminophen (Tylenol 325mg Suppository) 650 mg Q6H PRN RC MILD PAIN (1-3) 10/01/25 15:30 10/31/25 15:29 Amlodipine Besylate (NorvASC 5MG TAB) 5 mg DAILY PO 10/02/25 11:00 11/01/25 10:59 10/06/25 09:25 5 MG Atorvastatin Calcium (LIPItor 10MG) 20 mg HS PO 10/02/25 21:00 10/05/25 07:28 DC 10/04/25 20:03 20 MG Atorvastatin Calcium (LIPItor 20MG) 20 mg HS PO 10/05/25 21:00 11/01/25 20:59 10/06/25 20:09 20 MG Ceftriaxone Sodium (ROCEphine 1G INJ) 1 gm Q24H IVPB 10/02/25 11:00 10/03/25 03:05 DC Cetirizine HCl (ZYRtec 5 MG TABLET) 10 mg DAILY PO 10/03/25 09:00 11/02/25 08:59 10/06/25 09:29 10 MG Doxycycline Hyclate (Doxycycline Hyclate) 100 mg Q12H PO 10/03/25 11:30 10/13/25 11:29 10/06/25 11:27 100 MG Fish Oil (Fish Oil 1000 Mg/Cap) 1,000 mg DAILY PO 10/03/25 09:00 11/02/25 08:59 10/06/25 09:25 1,000 MG Hydralazine HCl (APRESOLine 20MG INJ) 5 mg Q6H PRN IV ADMINISTER FOR SBP > 160 10/02/25 11:00 11/01/25 10:59 Losartan Potassium (CozAAR 25MG TAB) 12.5 mg DAILY PO 10/03/25 09:00 11/02/25 08:59 10/06/25 09:25 12.5 MG Magnesium Sulfate 50 ml @ 0 mls/hr PROTOCOL PRN IV hypomagnesemia 10/05/25 05:30 11/04/25 05:29 10/05/25 05:22 15 MLS/HR Memantine (NAmenDA 5 MG TAB) 2.5 mg DAILY PO 10/03/25 09:00 11/02/25 08:59 10/06/25 09:25 2.5 MG Mirtazapine (REMeron 15 MG TAB) 7.5 mg HS PRN PO SLEEP 10/06/25 21:00 11/05/25 20:59 10/06/25 20:10 7.5 MG Multivitamins/ Minerals 10 ml/ Folic Acid 1 mg/ Thiamine HCl 100 mg/Sodium Chloride 1,000 ml @ 75 mls/hr DAILY IV 10/03/25 09:00 10/02/25 14:15 DC Multivitamins/ Minerals 10 ml/ Folic Acid 1 mg/ Thiamine HCl 100 mg/Sodium Chloride 1,000 ml @ 75 mls/hr Q24H IV 10/02/25 15:00 10/05/25 04:19 DC 10/04/25 15:14 75 MLS/HR Nicotine (Nicoderm) 14 mg DAILY TD 10/02/25 09:00 11/01/25 08:59 10/06/25 09:26 14 MG Nystatin (NYSTatin 577762 UNIT/ML 5ML UDCUP) 5 ml ONCE PO 10/04/25 17:00 10/05/25 00:01 DC 10/04/25 16:53 5 ML Nystatin (NYSTatin 096198 UNIT/ML 5ML UDCUP) 5 ml ONCE PRN PO ALTERNATE ROUTE 10/04/25 15:00 10/04/25 16:45 DC Ondansetron HCl (zoFRAN 4MG INJ) 4 mg Q6H PRN IVP NAUSEA/VOMITING 10/01/25 15:30 10/31/25 15:29 Oseltamivir Phosphate (Tamiflu) 75 mg BID PO 10/02/25 09:00 10/07/25 08:59 10/06/25 20:09 75 MG Pantoprazole Sodium (PROTonix 40MG INJ) 40 mg DAILY IVP 10/02/25 15:00 11/01/25 14:59 10/06/25 09:24 40 MG Pharmacy Profile Note (Pharmacy Communication) 1 each ONCE MISC 10/04/25 22:30 10/05/25 00:01 DC Piperacillin Sod/ Tazobactam Sod (Zosyn 3.375gm+NS 50ml) 3.375 gm Q8H IV 10/02/25 17:00 10/12/25 16:59 10/06/25 16:42 3.375 GM Potassium Chloride 100 ml @ 100 mls/hr AD PRN IV POTASSIUM PROTOCOL 10/03/25 22:30 11/02/25 22:29 Potassium Chloride (K-Dur/Klor-Con 20meq) 20 meq AD PRN PO POTASSIUM PROTOCOL 10/03/25 22:30 11/02/25 22:29 Potassium Chloride (KCl 10% Elixir 20meq/15ml) 20 meq AD PRN PO POTASSIUM PROTOCOL 10/03/25 22:30 11/02/25 22:29 10/05/25 09:22 20 MEQ Sertraline HCl (ZOloft 50 mg tab) 100 mg HS PO 10/02/25 21:00 11/01/25 20:59 10/06/25 20:10 100 MG Sodium Chloride 1,000 ml @ 100 mls/hr Q10H IV 10/02/25 06:30 11/01/25 06:29 10/06/25 01:32 100 MLS/HR Vancomycin HCl 250 ml @ 125 mls/hr Q12H IV 10/02/25 19:00 10/03/25 18:49 DC 10/03/25 08:49 125 MLS/HR Vancomycin HCl 250 ml @ 125 mls/hr Q12H IV 10/03/25 22:00 10/04/25 06:12 DC 10/03/25 21:14 125 MLS/HR Vancomycin HCl 250 ml @ 125 mls/hr Q12H IV 10/04/25 09:00 10/05/25 00:01 DC 10/04/25 20:03 125 MLS/HR Vancomycin HCl 250 ml @ 125 mls/hr Q24H IV 10/04/25 09:00 10/05/25 07:33 DC Vancomycin HCl 250 ml @ 125 mls/hr Q24H IV 10/05/25 09:00 10/05/25 09:43 DC Vancomycin HCl 250 ml @ 125 mls/hr Q24H IV 10/05/25 10:00 10/15/25 09:59 10/06/25 11:27 125 MLS/HR Vancomycin HCl (Vancomycin Protocol) 1 each AD IV 10/02/25 17:00 10/16/25 16:59 UNV Vancomycin HCl (Vancomycin Protocol) 1 each AD IV 10/02/25 17:00 10/03/25 18:44 DC Vancomycin HCl (Vancomycin Protocol) 1 each AD IV 10/03/25 22:00 10/17/25 21:59 DIAGNOSTICS / RADIOLOGY: [ ] ASSESSMENT: Acute metabolic encephalopathy metabolic POA Sepsis, POA Upper respiratory infection, secondary to influenza type a, POA Right mastoiditis, POA Status post fall, POA Hyperglycemia, POA Chronic condition: Hypertension, dementia, hyperlipidemia Advanced dementia Mild malnutrition, POA PLAN: 85 year old male with past medical history of hypertension, hyperlipidemia, dementia, current smoker who presented to the emergency department with complaints of altered mental status, slurred speech, shuffling gait. Patient is started spiking fever, as high as 104.0. Upgraded to the ICU for close observation, then downgraded to the medical floor. Patient positive for influenza type A. CT head right mastoid opacification, suggestive of mastoiditis. Blood pressure 135/55, afebrile, saturating normal on room air. Awake, following simple commands. Hemoglobin 13.9, hematocrit 40.5. Potassium 3.4. Continue broad-spectrum IV antibiotics. Follow ID input recommendation. Monitor mental status. A.m. labs. We will request Physical therapy to evaluate the patient. Fall precautions CT chest abdomen and pelvis reported as follows: IMPRESSION: * Minimal bilateral pleural effusions with associated dependent basilar atelectasis and mild cardiomegaly, without CT evidence of lobar consolidation or a focal pneumonia. In the clinical context of suspected pneumonia, these findings may reflect volume status or early/treated infection; correlate with clinical course, laboratory markers, and prior chest radiographs. * Nonobstructing 4 mm calculus in the lower calyx of the right kidney and upper calyx of the left kidney and a simple 16 mm right midpole renal cyst, without hydronephrosis or CT evidence of obstructive uropathy. * Small hiatal hernia and multilevel degenerative changes in the thoracic and lumbar spine with healed fractures of the posterior left 6th and 7th ribs, compatible with chronic changes. * Mild cardiomegaly with [id number] coronary artery calcifications and mild aortic atherosclerotic calcification, consistent with chronic atherosclerotic cardiovascular disease. * Compared with the chest radiograph from 10/01/2025, which raised concern for possible pneumonia, the current noncontrast CT shows minimal effusions and basilar atelectasis without focal consolidation, suggesting no CT-confirmed lobar pneumonia at this time; interval change may reflect evolving or treated cardiopulmonary process, and continued clinical and radiographic follow-up should be guided by symptoms and examination findings.. NEURO: Minimize central acting medications as possible. Fall Precautions. Well lighted room through the day and minimize interruptions through the night to prevent acute delirium. PULMONARY: Supplemental 02 as needed BiPAP as necessary, for respiratory distress Titrate Fio2 to keep Spo2 > or = 90% DuoNebs and CPT as needed IS hourly while awake for pulmonary hygiene prn Out of bed to chair as tolerated Maintain aspiration precautions at all times CARDIOVASCULAR: Follow hemodynamics. Vital signs per facility protocol GI & NUTRITION: Continue nutritional support Aspirations precautions Prokinetic agents and laxatives as needed KIDNEYS & ELECTROLYTES: Strict monitoring of intake and output Daily weights Avoid nephrotoxic agents Monitor electrolytes and replace as needed Goal urine output of 30mL/hr or 0.5mL/kg/hr Medications to be dosed according to renal function. Avoid contrast if possible ENDOCRINE: Maintain blood glucose between 100-180 at all times. Insulin sliding scale for blood glucose management Hypoglycemia and hyperglycemia protocol in place INFECTIOUS DISEASE: Trend temperature, WBC and procalcitonin level Follow cultures, deescalate antibiotics as soon as possible. Panculture if new onset fever HEMATOLOGY & COAGULATION: Monitor H&H. Keep Hgb > 7 Transfuse 1 unit of PRBC for Hgb < 7 Transfuse 1 pack of platelets of platelets < 20, 000 Watch for any signs and symptoms of bleeding SKIN: Pressure ulcer prevention per facility protocol Specialty mattress as needed ORTHO/REHAB Continue PT/OT PRN: MEDICATIONS Tylenol 650 mg po every 4 hrs for fever zofran 4 mg IV every 6 hrs for n/v Hydralazine 5 mg IV every 4 hrs systolic pressure > 160 bowel regiment: lactulose 20 gm PO BID PRN constipation Supportive measures: Continue GI and DVT prophylaxis Disposition: Pending improvement in clinical condition All questions answered time spent: > 35 min MIRLANDE MEYER MD Oct 06, 2025 20:20
[2025-10-07] VITALS (9 sets, daily range): BP systolic 126–145; BP diastolic 60–74; PULSE 58–64; RESP 15–18; TEMP 98–98.1; O2SAT 94–97
[2025-10-07 05:04] LABS: IMMATURE GRANULOCYTE ABSOLUTE 0.05 K/uL (0-1); NUCLEATED RED BLOOD CELLS 0.0 % (0.0-0.19); PLATELET COUNT (AUTO) 288 K/uL (130-400); RED BLOOD CELL COUNT(AUTO) 4.37 MIL/uL (4.50-6.20); RED CELL DISTRIBUTION WIDTH 13.1 % (11.0-15.5); WHITE BLOOD COUNT (AUTO) 6.9 K/uL (4.8-10.8)
[2025-10-07 05:20] LABS: ASPARTATE AMINOTRANSFERASE 20.0 U/L (10-37); CREATININE 0.7 mg/dL (0.5-1.3); GLOMERULAR FILTR. RATE CALC 91.0 mL/min (>90); GLUCOSE,RANDOM 108.0 mg/dL (70-105); SODIUM SERUM 144.0 mmol/L (136-145); TOTAL PROTEIN, SERUM 6.3 g/dL (6.0-8.3); UREA NITROGEN, BLOOD 8.0 mg/dL (7-18)
[2025-10-07] MEDS: PoTASSium chloRIDE 20MEQ ER 20 MEQ ERTAB PO PRN (14:04)
--- NOTE | 2025-10-07 15:34 | NUR ---
REPORT GIVEN TO CELIA NURSE FOR PATIENT TRANSFERRING FROM ROOM 416 TO ROOM 408.
--- NOTE | 2025-10-07 16:22 | NUR ---
PT TRANSFERRED FROM 415 TO 407. PT HAS A SITTER. REPORT GIVEN BY ALYCIA DUMONT .
--- NOTE | 2025-10-07 21:10 | PN ---
INFECTIOUS DISEASE PROGRESS NOTE Date of Service: Oct 07, 2025 SUBJECTIVE: [ ] PHYSICAL EXAM EYES: Anicteric. Pupils equal and reactive. HENT: No oral thrush seen, moist Oral mucosa NECK: Supple, no JVD or thyromegaly. LUNGS: Good air entry. Crackles on auscultation. Productive cough. CARDIOVASCULAR: S1, S2 regular. No murmur heard. ABDOMEN: Soft, non tender, bowel sounds present, no organomegaly CENTRAL NERVOUS SYSTEM: Episodes of confusion. SKIN: No rashes, no swelling. LYMPHATICS: No peripheral lymphadenopathy MUSCULOSKELETAL: No joint swelling, erythema or tenderness. EXTREMITIES: No cyanosis or clubbing. BACK: No deformity, no pressure ulcer. GENITOURINARY: No dysuria or hematuria. Vital Sign (Last 12 Hours) 10/07/25 10/07/25 10/07/25 10/07/25 12:00 14:00 16:00 17:20 Temp 98.1 98.1 Pulse 64 61 Resp 15 16 B/P (MAP) 129/70 132/66 Pulse Ox 91 96 94 94 O2 Delivery Room Air Room Air* Room Air Room Air* O2 Flow Rate 0 0 FiO2 21 21 10/07/25 19:46 Temp 98.1 Pulse 61 Resp 18 B/P (MAP) 131/70 Pulse Ox 95 O2 Delivery Room Air Intake & Output (last 24hrs) 10/06/25 10/06/25 10/07/25 15:00 23:00 07:00 Intake Total 850.0 ml 400.0 ml Output Total 450 ml 600 ml Balance 400.0 ml -200.0 ml LABS: Laboratory: Test 10/07/25 04:41 Range/Units White Blood Count 6.9 4.8-10.8 K/uL Red Blood Count 4.37 L 4.50-6.20 MIL/uL Hemoglobin 13.9 L 14.0-18.0 g/dL Hematocrit 39.9 L 42-54 % Mean Corpuscular Volume 91.3 79-99 fL Mean Corpuscular Hemoglobin 31.8 27.0-33.0 pg Mean Corpuscular Hemoglobin Concent 34.8 32.0-36.0 g/dL Red Cell Distribution Width 13.1 11.0-15.5 % Platelet Count 288 # 130-400 K/uL Mean Platelet Volume 9.5 7.5-10.5 fL Immature Granulocyte % (Auto) 0.7 0-1 % Neutrophils (%) (Auto) 58.6 40.0-77.0 % Lymphocytes (%) (Auto) 31.2 21.0-51.0 % Monocytes (%) (Auto) 6.4 3.0-13.0 % Eosinophils (%) (Auto) 2.7 0.0-8.0 % Basophils (%) (Auto) 0.4 0.0-5.0 % Neutrophils # (Auto) 4.1 1.8-7.7 K/uL Lymphocytes # (Auto) 2.2 1.0-4.8 K/uL Monocytes # (Auto) 0.4 0.1-1.0 K/uL Eosinophils # (Auto) 0.19 0.00-0.70 K/uL Basophils # (Auto) 0.03 0.00-0.20 K/uL Absolute Immature Granulocyte (auto 0.05 0-1 K/uL Nucleated Red Blood Cells 0.0 0.0-0.19 % Sodium Level 144 136-145 mmol/L Potassium Level 3.1 L 3.5-5.1 mmol/L Chloride Level 108 101-111 mmol/L Carbon Dioxide Level 26 21-32 mmol/L Blood Urea Nitrogen 8 7-18 mg/dL Creatinine 0.7 0.5-1.3 mg/dL Glomerular Filtration Rate Calc 91 >90 mL/min Random Glucose 108 H 70-105 mg/dL Total Calcium 8.8 8.5-10.1 mg/dL Total Bilirubin 0.7 0.2-1.0 mg/dL Aspartate Amino Transf (AST/SGOT) 20 10-37 U/L Alanine Aminotransferase (ALT/SGPT) 34 12-78 U/L Alkaline Phosphatase 77 50-136 U/L Total Protein 6.3 6.0-8.3 g/dL Albumin 3.0 L 3.5-5.0 g/dL DIAGNOSTICS / RADIOLOGY: PATIENT: TAMIR OWUSU MR#: [id number] : 1940 SEX: M AGE: 85 LOCATION: [facility] ORDER 36 STATUS: ADM IN REPORT#: [id number] SERVICE [id number] REASON: POSSIBLE PNEUMONIA ORDERING PHYSICIAN: BHAVYA SANTILLAN MD PROCEDURE: CHESTAB WO - CT CHEST ABDOMEN W/O CONTRAST EXAM: CT SCAN OF THE CHEST, ABDOMEN, AND PELVIS WITHOUT CONTRAST Clinical statement: Possible pneumonia. STUDY PROTOCOL: CT radiation dose protocol was performed in accordance with the principles of ALARA. A multislice CT scan of the chest, abdomen, and pelvis was done without intravenous contrast. Sections were obtained from the thoracic inlet through the pelvis. RADIATION DOSE: Not provided. CONTRAST: No intravenous contrast administered. COMPARISON: Chest radiograph from 10/01/2025. FINDINGS: CHEST: Soft tissues: No anterior chest wall mass or axillary lymphadenopathy is identified. Lungs and large airways: Tracheobronchial tree is patent. No discrete pulmonary nodule or focal lobar consolidation is seen. Dependent subsegmental atelectasis is present at the lung bases. Pleura: No pleural mass is identified. There are minimal bilateral pleural effusions with associated basilar atelectasis. No pneumothorax. Heart and pericardium: Heart size is mildly enlarged, compatible with mild cardiomegaly. No pericardial effusion is seen. [id number] coronary artery calcifications are present. Aorta: Thoracic aorta is normal in caliber without aneurysm. Mild aortic wall calcifications are present. Lymph nodes: No pathologically enlarged mediastinal or hilar lymph nodes are identified. Mediastinum and rebeka: Mediastinal contours are unremarkable. Hilar structures are within normal limits. Chest wall and lower neck: No chest wall mass or abnormality of the visualized lower neck is seen. Bones/joints: No acute thoracic vertebral or rib fracture is identified. There are healed fractures of the posterior aspects of the left 6th and 7th ribs. Mild degenerative changes are present in the visualized spine. Upper abdomen: Visualized upper abdominal structures are more fully described in the abdomen and pelvis section below. ABDOMEN AND PELVIS: LIVER: Normal size, morphology, and attenuation with smooth margins. No focal hepatic lesion or calcification is seen. No intrahepatic or extrahepatic biliary ductal dilatation is identified. Jordon hepatis is unremarkable. Portal vein, hepatic veins, and IVC are normal in caliber. GALL BLADDER: Normal wall thickness and smooth contour. Lumen demonstrates uniform fluid attenuation without visible gallstones, calcifications, or mass. Pericholecystic fat and the cystic duct appear normal. PANCREAS: Normal in size, contour, and attenuation. Main pancreatic duct is not dilated. No peripancreatic fat stranding or fluid collection. SPLEEN: Normal size, morphology, and attenuation without focal lesion. KIDNEYS: Both kidneys are normal in size, shape, position, and attenuation. No renal mass is seen. A simple cyst measuring approximately 16 mm is present in the midpole of the right kidney. A nonobstructing calculus measuring approximately 4 mm is present in the lower calyx of the right kidney and the upper calyx of the left kidney. No hydronephrosis or other CT evidence of obstructive uropathy. GIT /T/ PERITONEAL CAVITY: Small hiatal hernia is present. Stomach is distended but otherwise unremarkable; gastroesophageal junction, pylorus, and duodenum appear normal. Jejunal and ileal loops are normal in caliber and distribution with preserved wall thickness and mucosal pattern. No evidence of acute appendicitis. Large bowel loops are normal in caliber without wall thickening or pericolic inflammatory changes. No free intraperitoneal fluid or free air is identified. Mesenteric fat and omentum are normal. LYMPHNODES: No pathologically enlarged abdominal or pelvic lymph nodes are identified. RETROPERITONEUM: Both adrenal glands are normal in morphology and attenuation. Aorta and IVC are normal in position and caliber with mild aortic wall calcification. No retroperitoneal mass or hematoma. MUSCULOSKELETAL: Degenerative changes are present in the dorsolumbar spine with multilevel spondylosis. No acute osseous abnormality. OTHER: Extra-abdominal and paraspinal soft tissues are unremarkable. IMPRESSION: * Minimal bilateral pleural effusions with associated dependent basilar atelectasis and mild cardiomegaly, without CT evidence of lobar consolidation or a focal pneumonia. In the clinical context of suspected pneumonia, these findings may reflect volume status or early/treated infection; correlate with clinical course, laboratory markers, and prior chest radiographs. * Nonobstructing 4 mm calculus in the lower calyx of the right kidney and upper calyx of the left kidney and a simple 16 mm right midpole renal cyst, without hydronephrosis or CT evidence of obstructive uropathy. * Small hiatal hernia and multilevel degenerative changes in the thoracic and lumbar spine with healed fractures of the posterior left 6th and 7th ribs, compatible with chronic changes. * Mild cardiomegaly with [id number] coronary artery calcifications and mild aortic atherosclerotic calcification, consistent with chronic atherosclerotic cardiovascular disease. * Compared with the chest radiograph from 10/01/2025, which raised concern for possible pneumonia, the current noncontrast CT shows minimal effusions and basilar atelectasis without focal consolidation, suggesting no CT-confirmed lobar pneumonia at this time; interval change may reflect evolving or treated cardiopulmonary process, and continued clinical and radiographic follow-up should be guided by symptoms and examination findings. /[place] DICTATED BY: VALERIA MORA MD DATE: 10/02/251913 ASSESSMENT: Pneumoniae. Positive Viral influenza type A Sepsis. Encephalopathy. Chronic tobacco use. PLAN: Continue vancomycin. Continue doxycycline. Continue Zosyn. Continue Tamiflu. This case was reviewed and discussed with my supervising physician Dr. Blackman and the above assessment and plan was formulated and agreed upon. ATTESTATION BY PHYSICIAN I have seen and examined the patient. I reviewed the documentation, medical decision making, and treatment plan as noted by the mid-level provider above. I agree with the findings and plan of care. ALVARO BLACKMAN MD, MIRTA L [facility] Oct 07, 2025 21:10
[2025-10-08] VITALS (8 sets, daily range): BP systolic 124–145; BP diastolic 61–73; PULSE 60–67; RESP 16–20; TEMP 98–98.4; O2SAT 98
[2025-10-08] MEDS: VANCOMYCIN 1G/250ML KIT 250 ML IV SCH (21:08)
--- NOTE | 2025-10-08 21:45 | PN ---
INFECTIOUS DISEASE PROGRESS NOTE Date of Service: Oct 08, 2025 SUBJECTIVE: PHYSICAL EXAM EYES: Anicteric. Pupils equal and reactive. HENT: No oral thrush seen, moist Oral mucosa NECK: Supple, no JVD or thyromegaly. LUNGS: Good air entry. Crackles on auscultation. Productive cough. CARDIOVASCULAR: S1, S2 regular. No murmur heard. ABDOMEN: Soft, non tender, bowel sounds present, no organomegaly CENTRAL NERVOUS SYSTEM: Episodes of confusion. SKIN: No rashes, no swelling. LYMPHATICS: No peripheral lymphadenopathy MUSCULOSKELETAL: No joint swelling, erythema or tenderness. EXTREMITIES: No cyanosis or clubbing. BACK: No deformity, no pressure ulcer. GENITOURINARY: No dysuria or hematuria. Vital Sign (Last 12 Hours) 10/08/25 10/08/25 10/08/25 10/08/25 10:45 12:13 16:15 19:22 Temp 98.2 98.2 98.1 Pulse 66 63 61 Resp 17 17 16 B/P (MAP) 125/62 140/71 137/73 Pulse Ox 98 97 95 98 O2 Delivery Room Air* Room Air Room Air Room Air O2 Flow Rate 0 FiO2 21 Intake & Output (last 24hrs) 10/07/25 10/07/25 10/08/25 15:00 23:00 07:00 Intake Total 810.0 ml 600 ml Output Total 600 ml Balance 210.0 ml 600 ml LABS: Laboratory: Test 10/08/25 18:36 10/08/25 09:28 10/07/25 04:41 Range/Units Potassium Level 3.2 L 3.5-5.1 mmol/L Vancomycin Level Trough 5.7 #L 10.0-20.0 UG/ML White Blood Count 6.9 4.8-10.8 K/uL Red Blood Count 4.37 L 4.50-6.20 MIL/uL Hemoglobin 13.9 L 14.0-18.0 g/dL Hematocrit 39.9 L 42-54 % Mean Corpuscular Volume 91.3 79-99 fL Mean Corpuscular Hemoglobin 31.8 27.0-33.0 pg Mean Corpuscular Hemoglobin Concent 34.8 32.0-36.0 g/dL Red Cell Distribution Width 13.1 11.0-15.5 % Platelet Count 288 # 130-400 K/uL Mean Platelet Volume 9.5 7.5-10.5 fL Immature Granulocyte % (Auto) 0.7 0-1 % Neutrophils (%) (Auto) 58.6 40.0-77.0 % Lymphocytes (%) (Auto) 31.2 21.0-51.0 % Monocytes (%) (Auto) 6.4 3.0-13.0 % Eosinophils (%) (Auto) 2.7 0.0-8.0 % Basophils (%) (Auto) 0.4 0.0-5.0 % Neutrophils # (Auto) 4.1 1.8-7.7 K/uL Lymphocytes # (Auto) 2.2 1.0-4.8 K/uL Monocytes # (Auto) 0.4 0.1-1.0 K/uL Eosinophils # (Auto) 0.19 0.00-0.70 K/uL Basophils # (Auto) 0.03 0.00-0.20 K/uL Absolute Immature Granulocyte (auto 0.05 0-1 K/uL Nucleated Red Blood Cells 0.0 0.0-0.19 % Sodium Level 144 136-145 mmol/L Chloride Level 108 101-111 mmol/L Carbon Dioxide Level 26 21-32 mmol/L Blood Urea Nitrogen 8 7-18 mg/dL Creatinine 0.7 0.5-1.3 mg/dL Glomerular Filtration Rate Calc 91 >90 mL/min Random Glucose 108 H 70-105 mg/dL Total Calcium 8.8 8.5-10.1 mg/dL Total Bilirubin 0.7 0.2-1.0 mg/dL Aspartate Amino Transf (AST/SGOT) 20 10-37 U/L Alanine Aminotransferase (ALT/SGPT) 34 12-78 U/L Alkaline Phosphatase 77 50-136 U/L Total Protein 6.3 6.0-8.3 g/dL Albumin 3.0 L 3.5-5.0 g/dL ASSESSMENT: Pneumoniae. Positive Viral influenza type A Sepsis. Encephalopathy. Chronic tobacco use. PLAN: Continue vancomycin. Continue doxycycline. Continue Zosyn. Tamiflu completed. This case was reviewed and discussed with my supervising physician Dr. Blackman and the above assessment and plan was formulated and agreed upon. ATTESTATION BY PHYSICIAN I have seen and examined the patient. I reviewed the documentation, medical decision making, and treatment plan as noted by the mid-level provider above. I agree with the findings and plan of care. ALVARO BLACKMAN MD, MIRTA L [facility] Oct 08, 2025 21:45
[2025-10-09 04:03] VITALS: BP 143/75; PULSE 68; RESP 20; TEMP 98.2
[2025-10-09 07:09] VITALS: BP 134/72; PULSE 60; RESP 15; TEMP 98.2
[2025-10-09 10:59] VITALS: BP 137/67; PULSE 60; RESP 16; TEMP 97.7
--- NOTE | 2025-10-09 12:00 | NUR ---
RM: 303 PT ARRIVED TO ROOM 303. DAUGHTER AT BEDSIDE. BED LOWERED AND LOCKED. CALL LIGHT TO REACH. PT SEEMS COMFORTABLE. NON LABORED BREATHING.
[2025-10-09 12:26] LABS: IMMATURE GRANULOCYTE ABSOLUTE 0.12 K/uL (0-1); NUCLEATED RED BLOOD CELLS 0.0 % (0.0-0.19); PLATELET COUNT (AUTO) 328 K/uL (130-400); RED BLOOD CELL COUNT(AUTO) 4.24 MIL/uL (4.50-6.20); RED CELL DISTRIBUTION WIDTH 13.3 % (11.0-15.5); WHITE BLOOD COUNT (AUTO) 11.5 K/uL (4.8-10.8)
[2025-10-09 12:41] LABS: ASPARTATE AMINOTRANSFERASE 19.0 U/L (10-37); CREATININE 0.7 mg/dL (0.5-1.3); GLOMERULAR FILTR. RATE CALC 91.0 mL/min (>90); GLUCOSE,RANDOM 111.0 mg/dL (70-105); SODIUM SERUM 142.0 mmol/L (136-145); TOTAL PROTEIN, SERUM 6.1 g/dL (6.0-8.3); UREA NITROGEN, BLOOD 11.0 mg/dL (7-18)
--- NOTE | 2025-10-09 13:20 | PN ---
INFECTIOUS DISEASE PROGRESS NOTE Date of Service: Oct 09, 2025 SUBJECTIVE: No antibiotics needed on discharge. PHYSICAL EXAM EYES: Anicteric. Pupils equal and reactive. HENT: No oral thrush seen, moist Oral mucosa NECK: Supple, no JVD or thyromegaly. LUNGS: Good air entry. Crackles on auscultation. Productive cough. CARDIOVASCULAR: S1, S2 regular. No murmur heard. ABDOMEN: Soft, non tender, bowel sounds present, no organomegaly CENTRAL NERVOUS SYSTEM: Episodes of confusion. SKIN: No rashes, no swelling. LYMPHATICS: No peripheral lymphadenopathy MUSCULOSKELETAL: No joint swelling, erythema or tenderness. EXTREMITIES: No cyanosis or clubbing. BACK: No deformity, no pressure ulcer. GENITOURINARY: No dysuria or hematuria. Vital Sign (Last 12 Hours) 10/09/25 10/09/25 10/09/25 10/09/25 04:03 07:09 10:50 10:59 Temp 98.2 98.2 97.7 Pulse 68 60 60 Resp 20 15 16 B/P (MAP) 143/75 134/72 137/67 Pulse Ox 95 93 94 O2 Delivery Room Air Room Air Room Air* Room Air O2 Flow Rate 0 FiO2 21 Intake & Output (last 24hrs) 10/08/25 10/08/25 10/09/25 15:00 23:00 07:00 Intake Total 2445.0 ml 800.0 ml Balance 2445.0 ml 800.0 ml LABS: Laboratory: Test 10/09/25 12:18 10/08/25 09:28 Range/Units White Blood Count 11.5 H 4.8-10.8 K/uL Red Blood Count 4.24 L 4.50-6.20 MIL/uL Hemoglobin 13.5 L 14.0-18.0 g/dL Hematocrit 40.0 L 42-54 % Mean Corpuscular Volume 94.3 79-99 fL Mean Corpuscular Hemoglobin 31.8 27.0-33.0 pg Mean Corpuscular Hemoglobin Concent 33.8 32.0-36.0 g/dL Red Cell Distribution Width 13.3 11.0-15.5 % Platelet Count 328 130-400 K/uL Mean Platelet Volume 9.5 7.5-10.5 fL Immature Granulocyte % (Auto) 1.0 0-1 % Neutrophils (%) (Auto) 67.3 40.0-77.0 % Lymphocytes (%) (Auto) 23.9 21.0-51.0 % Monocytes (%) (Auto) 4.8 3.0-13.0 % Eosinophils (%) (Auto) 2.7 0.0-8.0 % Basophils (%) (Auto) 0.3 0.0-5.0 % Neutrophils # (Auto) 7.8 H 1.8-7.7 K/uL Lymphocytes # (Auto) 2.8 1.0-4.8 K/uL Monocytes # (Auto) 0.6 0.1-1.0 K/uL Eosinophils # (Auto) 0.31 0.00-0.70 K/uL Basophils # (Auto) 0.03 0.00-0.20 K/uL Absolute Immature Granulocyte (auto 0.12 0-1 K/uL Nucleated Red Blood Cells 0.0 0.0-0.19 % Sodium Level 142 136-145 mmol/L Potassium Level 3.0 *L 3.5-5.1 mmol/L Chloride Level 109 101-111 mmol/L Carbon Dioxide Level 26 21-32 mmol/L Blood Urea Nitrogen 11 7-18 mg/dL Creatinine 0.7 0.5-1.3 mg/dL Glomerular Filtration Rate Calc 91 >90 mL/min Random Glucose 111 H 70-105 mg/dL Total Calcium 8.3 L 8.5-10.1 mg/dL Magnesium Level 1.70 L 1.80-2.40 mg/dL Total Bilirubin 0.4 0.2-1.0 mg/dL Aspartate Amino Transf (AST/SGOT) 19 10-37 U/L Alanine Aminotransferase (ALT/SGPT) 37 12-78 U/L Alkaline Phosphatase 72 50-136 U/L Total Protein 6.1 6.0-8.3 g/dL Albumin 2.8 L 3.5-5.0 g/dL Vancomycin Level Trough 5.7 #L 10.0-20.0 UG/ML ASSESSMENT: Pneumoniae. Positive Viral influenza type A Sepsis. Encephalopathy. Chronic tobacco use. PLAN: Continue vancomycin. Continue doxycycline. Continue Zosyn. Tamiflu completed. No antibiotics needed on discharge. This case was reviewed and discussed with my supervising physician Dr. Blackman and the above assessment and plan was formulated and agreed upon. ATTESTATION BY PHYSICIAN I have seen and examined the patient. I reviewed the documentation, medical decision making, and treatment plan as noted by the mid-level provider above. I agree with the findings and plan of care. ALVARO BLACKMAN MD, MIRTA L [facility] Oct 09, 2025 13:19
--- NOTE | 2025-10-09 13:50 | PN ---
[facility] PROGRESS NOTE Date of Service: Oct 09, 2025 Time of Service: 13:[address] Herbert SUBJECTIVE: 10/02 patient remains admitted to medical floor, seen and examined at bedside, the time of my visit the patient is comfortably in bed, not agitated, not combative. Daughter is at the bedside during my visit, the patient with advanced dementia, however he is usually more awake. Upon evaluation the patient withdrawing to painful stimulation, he was able to open eyes, open the mouth and showed the tongue. He is withdrawing to painful stimulation. We will looks dehydrated. BP 158/68, he has been spiking fever 102.6. Saturating no rmal on room air. CBC is unremarkable. Potassium level 3.3. Serology test positive for influenza type A. CT head done, no acute intracranial finding, right mastoid opacification suggestive of mastoiditis. Patient remains on respiratory isolation, continue Tamiflu 75 mg p.o. b.i.d.. Add Rocephin 1 g IV daily. Results of CT of the head discussed with the daughter, all questions answered. We will also do multivitamin 75 mL/hours, follow ABG, glucose level, clear liquid diet if able to tolerate. Follow a.m. labs. 10/03 patient is seen and examined at bedside, he was upgraded yesterday to the PCU secondary to high fever. Patient was placed on broad-spectrum IV antibiotics multivitamin IV. During my visit the patient is comfortably in bed, awake, following simple commands, not in distress, no chest pain, shortness shortness for breath, no nausea, no vomiting. He is getting IV fluids and IV antibiotics. Daughter is at the bedside. Blood pressure 134/63, afebrile, saturating normal on room air. White blood cell count of 10.4. Hemoglobin stable at 16.1. CMP is unremarkable. ABG with a in the normal range. Serology tests positive for influenza type A. Blood culture preliminary report no growth after 24 hours. Venous Doppler no evidence of DVT. CT chest abdomen and pelvis minimal bilateral pleural effusion with the associated dependent basilar atelectasis and mild cardiomegaly. No evidence of lobar consolidation or focal pneumoniae. Patient will be downgraded to medical floor, follow a.m. labs. PT to evaluate the patient. Discussed with the daughter at bedside, all questions answered, in agreement. CT chest abdomen and pelvis reported as follows: IMPRESSION: * Minimal bilateral pleural effusions with associated dependent basilar atelectasis and mild cardiomegaly, without CT evidence of lobar consolidation or a focal pneumonia. In the clinical context of suspected pneumonia, these findings may reflect volume status or early/treated infection; correlate with clinical course, laboratory markers, and prior chest radiographs. * Nonobstructing 4 mm calculus in the lower calyx of the right kidney and upper calyx of the left kidney and a simple 16 mm right midpole renal cyst, without hydronephrosis or CT evidence of obstructive uropathy. * Small hiatal hernia and multilevel degenerative changes in the thoracic and lumbar spine with healed fractures of the posterior left 6th and 7th ribs, compatible with chronic changes. * Mild cardiomegaly with [id number] coronary artery calcifications and mild aortic atherosclerotic calcification, consistent with chronic atherosclerotic cardiovascular disease. * Compared with the chest radiograph from 10/01/2025, which raised concern for possible pneumonia, the current noncontrast CT shows minimal effusions and basilar atelectasis without focal consolidation, suggesting no CT-confirmed lobar pneumonia at this time; interval change may reflect evolving or treated cardiopulmonary process, and continued clinical and radiographic follow-up should be guided by symptoms and examination findings. 10/04 85 year old male with past medical history of hypertension, hyperlipidemia, dementia, current smoker who presented to the emergency department with complaints of altered mental status, slurred speech, shuffling gait. Patient is started spiking fever, as high as 104.0. Upgraded to the ICU for close observation, then downgraded to the medical floor. Patient positive for influenza type A. CT head right mastoid opacification, suggestive of mastoiditis. Blood pressure 135/55, afebrile, saturating normal on room air. Awake, following simple commands. Hemoglobin 13.9, hematocrit 40.5. Potassium 3.4. Continue broad-spectrum IV antibiotics. Follow ID input recommendation. Monitor mental status. A.m. labs. We will request Physical therapy to evaluate the patient. Fall precautions. Daughter not in the room at the time of my visit. 10/05 85 year old male with past medical history of hypertension, hyperlipidemia, dementia, current smoker who presented to the emergency department with complaints of altered mental status, slurred speech, shuffling gait. Patient is started spiking fever, as high as 104.0. Upgraded to the ICU for close observation, then downgraded to the medical floor. Patient positive for influenza type A. CT head right mastoid opacification, suggestive of mastoiditis. . Awake, following simple commands. labs reviewed Continue broad-spectrum IV antibiotics. Follow ID input recommendation 10/06 . No overnight issues/ tolerating antibiotics 10/09/25 patient was seen by nurse practitioner and physician during rounding in room [id number] comfortably lying in the bed. Patient is on 1 to 1 due to getting bed. Blood culture negative x5 days patient already completed Tamiflu for the flu A positive. As per ID continue doxycycline vancomycin and Zosyn. Also as per ID patient will no need antibiotics at discharge. Most recent WBC today is 11.5. Order chest x-ray. As per pulmonology patient is cleared to be discharged home and follow up outpatient within one as per neurology patient also was cleared to be discharged home and follow-up as needed. We will continue to monitor patient in the meantime. A.m. labs. REVIEW OF SYSTEMS CONSTITUTIONAL: Denies fevers, chills, or night sweats. No unintentional weight loss reported. NEUROLOGICAL: Denies headache, amaurosis fugax, motor weakness, sensory deficit, vertigo/spinning sensation, gait abnormalities, or tremors. ENT: No hearing loss, otalgia, otorrhea, rhinitis, rhinorrhea, hoarseness, or sore throat. CARDIOVASCULAR: Denies any exertional angina, dyspnea on exertion, orthopnea, paroxysmal nocturnal dyspnea, palpitations, life-threatening arrhythmias, claudication. PULMONARY: Denies any shortness of breath, cough, phlegm/sputum, hemoptysis, pleuritic chest pain. SLEEP: Denies morning headaches, daytime somnolence or napping. Denies difficulty falling asleep, staying asleep, waking from sleep. Denies knowledge of snoring. GASTROINTESTINAL: Denies any type of dysphagia to either liquids or solids. Denies nausea, vomiting, pyrosis, early satiety, abdominal pain, diarrhea, constipation, or changes in stool consistency or caliber. Denies coffee-ground emesis, hematemesis, hematochezia, or melanotic stools. GENITOURINARY: Denies frequency, urgency, nocturia, hematuria or incontinence (Storage/Irritative symptoms.) Low urinary stream, straining to void, urinary intermittency or hesitancy, splitting of the voiding stream, terminal dribbling. ENDOCRINOLOGIC: Denies polyuria, polydipsia, polyphagia or heat/cold intolerances. HEMATOLOGIC: Denies thrombophilia/previous clots, or coagulopathy/bleeding disorders. ONCOLOGIC: Denies personal history of malignancy. DERMATOLOGIC: Denies rashes or pruritus. PSYCHIATRIC: Denies any suicidal or homicidal ideation. Denies hallucinations. PHYSICAL EXAM GENERAL APPEARANCE: The patient is awake, alert, and oriented, in no acute cardiopulmonary distress. NEUROLOGICAL: Cranial nerves II-XII grossly intact. Motor is 5/5 in bilateral upper and lower extremities proximal to distal. No sensory deficits. HEENT: Face is symmetric. Pupils are equal and reactive. Extraocular movements are intact. NECK: Supple. No JVD. No thyromegaly. No submental, submandibular, pre- /postauricular, occipital or supraclavicular lymphadenopathy. CHEST: Normal chest expansion. No Telemetry. LUNGS: Absence of any rales, rhonchi or any wheezing. CARDIOVASCULAR: Regular. S1 and S2 normal. No appreciable rubs, murmurs or gallops. ABDOMEN: Soft, nontender, and nondistended. There is no rebound, voluntary guarding, or rigidity. : Deferred. No Barboza. EXTREMITIES: Non-edematous and not cyanotic. No clubbing. Good capillary refill. SKIN: No skin breakdown. Vital Signs (last 8hr) Date Time Temp Pulse Resp B/P (MAP) Pulse Ox O2 Delivery O2 Flow Rate FiO2 10/09/25 10:59 97.7 60 16 137/67 94 Room Air 10/09/25 10:50 Room Air* 0 21 10/09/25 07:09 98.2 60 15 134/72 93 Room Air LABS: Laboratory: Test 10/09/25 12:18 10/08/25 09:28 Range/Units White Blood Count 11.5 H 4.8-10.8 K/uL Red Blood Count 4.24 L 4.50-6.20 MIL/uL Hemoglobin 13.5 L 14.0-18.0 g/dL Hematocrit 40.0 L 42-54 % Mean Corpuscular Volume 94.3 79-99 fL Mean Corpuscular Hemoglobin 31.8 27.0-33.0 pg Mean Corpuscular Hemoglobin Concent 33.8 32.0-36.0 g/dL Red Cell Distribution Width 13.3 11.0-15.5 % Platelet Count 328 130-400 K/uL Mean Platelet Volume 9.5 7.5-10.5 fL Immature Granulocyte % (Auto) 1.0 0-1 % Neutrophils (%) (Auto) 67.3 40.0-77.0 % Lymphocytes (%) (Auto) 23.9 21.0-51.0 % Monocytes (%) (Auto) 4.8 3.0-13.0 % Eosinophils (%) (Auto) 2.7 0.0-8.0 % Basophils (%) (Auto) 0.3 0.0-5.0 % Neutrophils # (Auto) 7.8 H 1.8-7.7 K/uL Lymphocytes # (Auto) 2.8 1.0-4.8 K/uL Monocytes # (Auto) 0.6 0.1-1.0 K/uL Eosinophils # (Auto) 0.31 0.00-0.70 K/uL Basophils # (Auto) 0.03 0.00-0.20 K/uL Absolute Immature Granulocyte (auto 0.12 0-1 K/uL Nucleated Red Blood Cells 0.0 0.0-0.19 % Sodium Level 142 136-145 mmol/L Potassium Level 3.0 *L 3.5-5.1 mmol/L Chloride Level 109 101-111 mmol/L Carbon Dioxide Level 26 21-32 mmol/L Blood Urea Nitrogen 11 7-18 mg/dL Creatinine 0.7 0.5-1.3 mg/dL Glomerular Filtration Rate Calc 91 >90 mL/min Random Glucose 111 H 70-105 mg/dL Total Calcium 8.3 L 8.5-10.1 mg/dL Magnesium Level 1.70 L 1.80-2.40 mg/dL Total Bilirubin 0.4 0.2-1.0 mg/dL Aspartate Amino Transf (AST/SGOT) 19 10-37 U/L Alanine Aminotransferase (ALT/SGPT) 37 12-78 U/L Alkaline Phosphatase 72 50-136 U/L Total Protein 6.1 6.0-8.3 g/dL Albumin 2.8 L 3.5-5.0 g/dL Vancomycin Level Trough 5.7 #L 10.0-20.0 UG/ML Current Medications Medications (Trade) Dose Ordered Sig/Gianna Route PRN Reason Start Time Stop Time Status Last Admin Dose Admin Acetaminophen (TYLenol 325MG TAB) 650 mg Q6H PRN PO MILD PAIN (1-3) 10/02/25 11:00 11/01/25 10:59 10/03/25 05:27 650 MG Acetaminophen (TYLenol 650MG SUPPOSITORY) 650 mg Q4H PRN RC TEMPERATURE GREATER THAN 101.5 10/02/25 17:00 10/05/25 07:27 DC Acetaminophen (Tylenol 325mg Suppository) 650 mg Q4H PRN RC TEMPERATURE GREATER THAN 101.5 10/01/25 15:30 10/31/25 15:29 10/01/25 22:58 650 MG Acetaminophen (Tylenol 325mg Suppository) 650 mg Q6H PRN RC MILD PAIN (1-3) 10/01/25 15:30 10/31/25 15:29 Amlodipine Besylate (NorvASC 5MG TAB) 5 mg DAILY PO 10/02/25 11:00 11/01/25 10:59 10/09/25 09:34 5 MG Atorvastatin Calcium (LIPItor 10MG) 20 mg HS PO 10/02/25 21:00 10/05/25 07:28 DC 10/04/25 20:03 20 MG Atorvastatin Calcium (LIPItor 20MG) 20 mg HS PO 10/05/25 21:00 11/01/25 20:59 10/08/25 21:07 20 MG Ceftriaxone Sodium (ROCEphine 1G INJ) 1 gm Q24H IVPB 10/02/25 11:00 10/03/25 03:05 DC Cetirizine HCl (ZYRtec 5 MG TABLET) 10 mg DAILY PO 10/03/25 09:00 11/02/25 08:59 10/09/25 09:34 10 MG Doxycycline Hyclate (Doxycycline Hyclate) 100 mg Q12H PO 10/03/25 11:30 10/13/25 11:29 10/09/25 11:34 100 MG Fish Oil (Fish Oil 1000 Mg/Cap) 1,000 mg DAILY PO 10/03/25 09:00 11/02/25 08:59 10/09/25 09:34 1,000 MG Hydralazine HCl (APRESOLine 20MG INJ) 5 mg Q6H PRN IV ADMINISTER FOR SBP > 160 10/02/25 11:00 11/01/25 10:59 Losartan Potassium (CozAAR 25MG TAB) 12.5 mg DAILY PO 10/03/25 09:00 11/02/25 08:59 10/09/25 09:34 12.5 MG Magnesium Sulfate 50 ml @ 0 mls/hr PROTOCOL PRN IV hypomagnesemia 10/05/25 05:30 11/04/25 05:29 10/09/25 12:55 25 MLS/HR Memantine (NAmenDA 5 MG TAB) 2.5 mg DAILY PO 10/03/25 09:00 11/02/25 08:59 10/09/25 09:34 2.5 MG Mirtazapine (REMeron 15 MG TAB) 7.5 mg HS PRN PO SLEEP 10/06/25 21:00 11/05/25 20:59 10/06/25 20:10 7.5 MG Multivitamins/ Minerals 10 ml/ Folic Acid 1 mg/ Thiamine HCl 100 mg/Sodium Chloride 1,000 ml @ 75 mls/hr DAILY IV 10/03/25 09:00 10/02/25 14:15 DC Multivitamins/ Minerals 10 ml/ Folic Acid 1 mg/ Thiamine HCl 100 mg/Sodium Chloride 1,000 ml @ 75 mls/hr Q24H IV 10/02/25 15:00 10/05/25 04:19 DC 10/04/25 15:14 75 MLS/HR Nicotine (Nicoderm) 14 mg DAILY TD 10/02/25 09:00 11/01/25 08:59 10/09/25 09:34 14 MG Nystatin (NYSTatin 235191 UNIT/ML 5ML UDCUP) 5 ml ONCE PO 10/04/25 17:00 10/05/25 00:01 DC 10/04/25 16:53 5 ML Nystatin (NYSTatin 855184 UNIT/ML 5ML UDCUP) 5 ml ONCE PRN PO ALTERNATE ROUTE 10/04/25 15:00 10/04/25 16:45 DC Ondansetron HCl (zoFRAN 4MG INJ) 4 mg Q6H PRN IVP NAUSEA/VOMITING 10/01/25 15:30 10/31/25 15:29 Oseltamivir Phosphate (Tamiflu) 75 mg BID PO 10/02/25 09:00 10/07/25 08:59 DC 10/06/25 20:09 75 MG Pantoprazole Sodium (PROTonix 40MG INJ) 40 mg DAILY IVP 10/02/25 15:00 11/01/25 14:59 10/09/25 09:35 40 MG Pharmacy Profile Note (Pharmacy Communication) 1 each ONCE MISC 10/04/25 22:30 10/05/25 00:01 DC Piperacillin Sod/ Tazobactam Sod (Zosyn 3.375gm+NS 50ml) 3.375 gm Q8H IV 10/02/25 17:00 10/12/25 16:59 10/09/25 09:33 3.375 GM Potassium Chloride 100 ml @ 100 mls/hr AD PRN IV POTASSIUM PROTOCOL 10/03/25 22:30 11/02/25 22:29 Potassium Chloride (K-Dur/Klor-Con 20meq) 20 meq AD PRN PO POTASSIUM PROTOCOL 10/03/25 22:30 11/02/25 22:29 10/07/25 19:27 20 MEQ Potassium Chloride (KCl 10% Elixir 20meq/15ml) 20 meq AD PRN PO POTASSIUM PROTOCOL 10/03/25 22:30 11/02/25 22:29 10/09/25 12:55 20 MEQ Sertraline HCl (ZOloft 50 mg tab) 100 mg HS PO 10/02/25 21:00 11/01/25 20:59 10/08/25 21:07 100 MG Sodium Chloride 1,000 ml @ 100 mls/hr Q10H IV 10/02/25 06:30 11/01/25 06:29 10/08/25 21:10 100 MLS/HR Vancomycin HCl 250 ml @ 125 mls/hr Q12H IV 10/02/25 19:00 10/03/25 18:49 DC 10/03/25 08:49 125 MLS/HR Vancomycin HCl 250 ml @ 125 mls/hr Q12H IV 10/03/25 22:00 10/04/25 06:12 DC 10/03/25 21:14 125 MLS/HR Vancomycin HCl 250 ml @ 125 mls/hr Q12H IV 10/04/25 09:00 10/05/25 00:01 DC 10/04/25 20:03 125 MLS/HR Vancomycin HCl 250 ml @ 125 mls/hr Q12H IV 10/08/25 22:00 10/18/25 21:59 10/09/25 09:34 125 MLS/HR Vancomycin HCl 250 ml @ 125 mls/hr Q24H IV 10/04/25 09:00 10/05/25 07:33 DC Vancomycin HCl 250 ml @ 125 mls/hr Q24H IV 10/05/25 09:00 10/05/25 09:43 DC Vancomycin HCl 250 ml @ 125 mls/hr Q24H IV 10/05/25 10:00 10/08/25 13:11 DC 10/08/25 10:42 125 MLS/HR Vancomycin HCl (Vancomycin Protocol) 1 each AD IV 10/02/25 17:00 10/16/25 16:59 UNV Vancomycin HCl (Vancomycin Protocol) 1 each AD IV 10/02/25 17:00 10/03/25 18:44 DC Vancomycin HCl (Vancomycin Protocol) 1 each AD IV 10/03/25 22:00 10/17/25 21:59 DIAGNOSTICS / RADIOLOGY: [ ] ASSESSMENT: Acute metabolic encephalopathy metabolic POA Sepsis, POA Upper respiratory infection, secondary to influenza type a, POA Right mastoiditis, POA Status post fall, POA Hyperglycemia, POA Chronic condition: Hypertension, dementia, hyperlipidemia Advanced dementia Mild malnutrition, POA PLAN: Patient is on 1 to 1 due to getting bed. Blood culture negative x5 days patient already completed Tamiflu for the flu A positive. As per ID continue doxycycline vancomycin and Zosyn. Also as per ID patient will no need antibiotics at discharge. Most recent WBC today is 11.5. Order chest x-ray. As per pulmonology patient is cleared to be discharged home and follow up outpatient within one as per neurology patient also was cleared to be discharged home and follow-up as needed. We will continue to monitor patient in the meantime. A.m. labs. CT chest abdomen and pelvis reported as follows: IMPRESSION: * Minimal bilateral pleural effusions with associated dependent basilar atelectasis and mild cardiomegaly, without CT evidence of lobar consolidation or a focal pneumonia. In the clinical context of suspected pneumonia, these findings may reflect volume status or early/treated infection; correlate with clinical course, laboratory markers, and prior chest radiographs. * Nonobstructing 4 mm calculus in the lower calyx of the right kidney and upper calyx of the left kidney and a simple 16 mm right midpole renal cyst, without hydronephrosis or CT evidence of obstructive uropathy. * Small hiatal hernia and multilevel degenerative changes in the thoracic and lumbar spine with healed fractures of the posterior left 6th and 7th ribs, compatible with chronic changes. * Mild cardiomegaly with [id number] coronary artery calcifications and mild aortic atherosclerotic calcification, consistent with chronic atherosclerotic cardiovascular disease. * Compared with the chest radiograph from 10/01/2025, which raised concern for possible pneumonia, the current noncontrast CT shows minimal effusions and basilar atelectasis without focal consolidation, suggesting no CT-confirmed lobar pneumonia at this time; interval change may reflect evolving or treated cardiopulmonary process, and continued clinical and radiographic follow-up should be guided by symptoms and examination findings.. NEURO: Minimize central acting medications as possible. Fall Precautions. Well lighted room through the day and minimize interruptions through the night to prevent acute delirium. PULMONARY: Supplemental 02 as needed BiPAP as necessary, for respiratory distress Titrate Fio2 to keep Spo2 > or = 90% DuoNebs and CPT as needed IS hourly while awake for pulmonary hygiene prn Out of bed to chair as tolerated Maintain aspiration precautions at all times CARDIOVASCULAR: Follow hemodynamics. Vital signs per facility protocol GI & NUTRITION: Continue nutritional support Aspirations precautions Prokinetic agents and laxatives as needed KIDNEYS & ELECTROLYTES: Strict monitoring of intake and output Daily weights Avoid nephrotoxic agents Monitor electrolytes and replace as needed Goal urine output of 30mL/hr or 0.5mL/kg/hr Medications to be dosed according to renal function. Avoid contrast if possible ENDOCRINE: Maintain blood glucose between 100-180 at all times. Insulin sliding scale for blood glucose management Hypoglycemia and hyperglycemia protocol in place INFECTIOUS DISEASE: Trend temperature, WBC and procalcitonin level Follow cultures, deescalate antibiotics as soon as possible. Panculture if new onset fever HEMATOLOGY & COAGULATION: Monitor H&H. Keep Hgb > 7 Transfuse 1 unit of PRBC for Hgb < 7 Transfuse 1 pack of platelets of platelets < 20, 000 Watch for any signs and symptoms of bleeding SKIN: Pressure ulcer prevention per facility protocol Specialty mattress as needed ORTHO/REHAB Continue PT/OT PRN: MEDICATIONS Tylenol 650 mg po every 4 hrs for fever zofran 4 mg IV every 6 hrs for n/v Hydralazine 5 mg IV every 4 hrs systolic pressure > 160 bowel regiment: lactulose 20 gm PO BID PRN constipation Supportive measures: Continue GI and DVT prophylaxis Disposition: Pending improvement in clinical condition All questions answered time spent: > 35 min ATTESTATION BY PHYSICIAN I have seen and examined the patient. I reviewed the documentation, medical decision making, and treatment plan as noted by the mid-level provider above. I agree with the findings and plan of care. LARRY Contreras MD [employer] Oct 09, 2025 13:50
--- NOTE | 2025-10-09 13:50 | NUR ---
Physical Therapy Note Patient has been refusing to participate with PT. He is walking in room at [facility] with nursing Endorsing pt to nursing. Patient will be removed from PT roster.
[2025-10-09] MEDS: PoTASSium chloRIDE 20MEQ ER 20 MEQ ERTAB PO SCH ×2 (13:52→19:27)
[2025-10-09] MEDS ORDERED: MAGNESIUM 2GM PREMIX 50ML 50 ML IV SCH (14:00)
--- NOTE | 2025-10-09 16:04 | HMCIMG ---
CHEST 1VW REASON: congestion COMPARISON: Prior chest radiograph from 10/01/2025 is available. FINDINGS: Single view of the chest was obtained. Lungs are clear. Heart size is normal. There is no pulmonary vascular congestion. Mediastinum and bony thorax appear unremarkable. There is suggestion of small to moderate hiatal hernia. IMPRESSION: 1 no acute cardiopulmonary process..
[2025-10-09 16:15] VITALS: BP 140/69; PULSE 63; RESP 18; TEMP 98.6
[2025-10-09 19:08] VITALS: BP 152/65; PULSE 66; RESP 18; TEMP 98
[2025-10-10] VITALS: BP 146/67; PULSE 63; RESP 18; TEMP 98.3
[2025-10-10 04:00] VITALS: BP 132/66; PULSE 57; RESP 18; TEMP 98.4
[2025-10-10 07:31] VITALS: BP 128/73; PULSE 56; RESP 18; TEMP 98.7
[2025-10-10 08:56] LABS: IMMATURE GRANULOCYTE ABSOLUTE 0.13 K/uL (0-1); NUCLEATED RED BLOOD CELLS 0.0 % (0.0-0.19); PLATELET COUNT (AUTO) 322 K/uL (130-400); RED BLOOD CELL COUNT(AUTO) 4.20 MIL/uL (4.50-6.20); RED CELL DISTRIBUTION WIDTH 13.3 % (11.0-15.5); WHITE BLOOD COUNT (AUTO) 11.6 K/uL (4.8-10.8)
[2025-10-10 09:29] LABS: ASPARTATE AMINOTRANSFERASE 21.0 U/L (10-37); CREATININE 0.7 mg/dL (0.5-1.3); GLOMERULAR FILTR. RATE CALC 91.0 mL/min (>90); GLUCOSE,RANDOM 99.0 mg/dL (70-105); SODIUM SERUM 140.0 mmol/L (136-145); TOTAL PROTEIN, SERUM 5.7 g/dL (6.0-8.3); UREA NITROGEN, BLOOD 7.0 mg/dL (7-18)
[2025-10-10] MEDS ORDERED: AMLO5TAB4 PO (10:46)
[2025-10-10] MEDS ORDERED: DOXY100T2 PO (10:46)
--- NOTE | 2025-10-10 10:51 | DS ---
Discharge Summary Hospital Course Summary: DATE OF ADMISSION:[10/01/2025] DATE OF DISCHARGE:[10/10/2025] DISPOSITION:[Home] CONDITION:[Medically stable] CONSULTANTS:[] ID, BIS, neurologist FOLLOW UP APPOINTMENTS:[PCP2 to 3 days, licensed practical nurse instructor one week, neurologist two weeks] PROCEDURES:[None] IMAGING: report attached to summary MICROBIOLOGY: report attached to summary ACTIVITY:[Requires one-person assist] HOME MEDICATIONS: [facility] NEW MEDICATIONS:[Amlodipine, doxycycline] EMERGENCY INSTRUCTIONS: The patient was instructed to present to the nearest Emergency departmentr or call 911 once their symptoms will return or worsen Supervisor Sunglasses(s): Patient is85 years old male who came to emergency department s/p fall who was diagnosed pneumonia sepsis and flu a. During hospitalization patient completed Tamiflu medication for flu A positive. Blood culture was drawn and was negative. ID was consulted for antibiotic treatment patient was placed on doxycycline vancomycin and Zosyn. All antibiotics were completed upon discharge and per ID patient does not need IV antibiotics. Undercoater was consulted as well for shortness of breaths and pneumonia. Today patient was approved to be discharged home. During hospitalization that was a? Patient had a a stroke, neurologist was consulted and per his notes patient has a dementia stroke was ruled out. During hospitalization patient underwent venous Doppler was negative 2D echo [id number] 60% normal function. CT chest showed minimal bilateral pleural effusions and CT head brain showed mastoiditis brain. Chest x-ray showed no acute pulmonary process. Today patient was cleared to be discharged home follow up outpatient with PCP in2 to 3 days. With licensed practical nurse instructor within one week and neurologist within two weeks. Procedure(s): REVIEW OF SYSTEMS CONSTITUTIONAL: Denies fevers, chills, or night sweats. No unintentional weight loss reported. NEUROLOGICAL: Denies headache, amaurosis fugax, motor weakness, sensory deficit, vertigo/spinning sensation, gait abnormalities, or tremors. ENT: No hearing loss, otalgia, otorrhea, rhinitis, rhinorrhea, hoarseness, or sore throat. CARDIOVASCULAR: Denies any exertional angina, dyspnea on exertion, orthopnea, paroxysmal nocturnal dyspnea, palpitations, life-threatening arrhythmias, claudication. PULMONARY: Denies any shortness of breath, cough, phlegm/sputum, hemoptysis, pleuritic chest pain. SLEEP: Denies morning headaches, daytime somnolence or napping. Denies difficulty falling asleep, staying asleep, waking from sleep. Denies knowledge of snoring. GASTROINTESTINAL: Denies any type of dysphagia to either liquids or solids. Denies nausea, vomiting, pyrosis, early satiety, abdominal pain, diarrhea, constipation, or changes in stool consistency or caliber. Denies coffee-ground emesis, hematemesis, hematochezia, or melanotic stools. GENITOURINARY: Denies frequency, urgency, nocturia, hematuria or incontinence (Storage/Irritative symptoms.) Low urinary stream, straining to void, urinary intermittency or hesitancy, splitting of the voiding stream, terminal dribbling. ENDOCRINOLOGIC: Denies polyuria, polydipsia, polyphagia or heat/cold intolerances. HEMATOLOGIC: Denies thrombophilia/previous clots, or coagulopathy/bleeding disorders. ONCOLOGIC: Denies personal history of malignancy. DERMATOLOGIC: Denies rashes or pruritus. PSYCHIATRIC: Denies any suicidal or homicidal ideation. Denies hallucinations. PHYSICAL EXAM GENERAL APPEARANCE: The patient is awake, alert, and oriented, in no acute cardiopulmonary distress. NEUROLOGICAL: Cranial nerves II-XII grossly intact. Motor is 5/5 in bilateral upper and lower extremities proximal to distal. No sensory deficits. HEENT: Face is symmetric. Pupils are equal and reactive. Extraocular movements are intact. NECK: Supple. No JVD. No thyromegaly. No submental, submandibular, pre-/postauricular, occipital or supraclavicular lymphadenopathy. CHEST: Normal chest expansion. No Telemetry. LUNGS: Absence of any rales, rhonchi or any wheezing. CARDIOVASCULAR: Regular. S1 and S2 normal. No appreciable rubs, murmurs or gallops. ABDOMEN: Soft, nontender, and nondistended. There is no rebound, voluntary guarding, or rigidity. : Deferred. No Barboza. EXTREMITIES: Non-edematous and not cyanotic. No clubbing. Good capillary refill. SKIN: No skin breakdown. Assessment/Plan: ASSESSMENT: Acute metabolic encephalopathy metabolic POA Sepsis, POA Upper respiratory infection, secondary to influenza type a, POA Right mastoiditis, POA Status post fall, POA Hyperglycemia, POA Chronic condition: Hypertension, dementia, hyperlipidemia Advanced dementia Mild malnutrition, POA Home Medications: Active Scripts Doxycycline Hyclate (Doxycycline Hyclate) 100 Mg Tablet, 100 MG PO Q12H, #8 TAB Prov:LARRY KELLY [facility] 10/10/25 Amlodipine Besylate (Norvasc 5Mg Tab) 5 Mg Tablet, 5 MG PO DAILY, #60 TAB Prov:LARRY KELLY [facility] 10/10/25 Pantoprazole Sodium (Protonix) 40 Mg Ectab, 40 MG PO BID, #60 TAB.EC Prov:FABIOLA REYES MD 03/14/24 Reported Medications Mirtazapine (Mirtazapine) 15 Mg Tab.rapdis, 0.5 TAB PO HS for 30 Days, #30 TAB 0 Refills Patient takes half a tablet as needed at bedtime for sleep. 10/06/25 Cetirizine HCl (Cetirizine HCl) 10 Mg Tab.chew, 10 MG PO DAILY, TAB.CHEW 03/13/24 Sertraline HCl (Sertraline HCl) 100 Mg Tablet, 100 MG PO HS, TAB 03/13/24 Memantine HCl (Memantine HCl) 5 Mg Tablet, 2.5 MG PO DAILY, TAB 03/13/24 Losartan Potassium (Losartan Potassium) 25 Mg Tablet, 12.5 MG PO DAILY, TAB 03/13/24 Patterson-3/Dha/Epa/Fish Oil (Fish Oil 1,000 mg Softgel) 1,000 Mg (120 Mg-180 Mg) Capsule, 1000 MG PO DAILY, CAP 03/13/24 Atorvastatin Calcium (LIPITOR) 20 Mg Tab, 20 MG PO HS, TAB 03/13/24 Time spent arranging discharge: 31-60 minutes ATTESTATION BY PHYSICIAN I have seen and examined the patient. I reviewed the documentation, medical decision making, and treatment plan as noted by the mid-level provider above. I agree with the findings and plan of care. Luis Angel MD, KATARZYNA B [facility] Oct 10, 2025 10:51 LUIS ANGEL MD Oct 16, 2025 06:59
[2025-10-10 10:53] VITALS: BP 132/65; PULSE 60; RESP 20; TEMP 98.7
--- NOTE | 2025-10-10 12:21 | NUR ---
patient discharged home ID BAND AND IV REMOVED. DISCHARGE INSTRUCTIONS EXPLAINED AND GIVEN TO PATIENT. PATIENT VERBALIZED UNDERSTANDING. BELONGINGS PACKED AND TAKEN BY PATIENT. WHEELED DOWN TO PRIVATE CAR.
== END 2025-10-10 12:00 | disposition home or self-care (01) | DRG 871 ==
LOC: EDH 10:44 → EDHIP 15:26 → 3CH 10-02 05:30 → 2DH 10-02 23:40 → 4CH 10-03 13:18 → 4BH 10-07 16:25 → 3AH 10-09 12:30
PROVIDERS: ADMIT Internal Medicine; ATTEND Internal Medicine
DX: A41.9 Sepsis, unspecified organism (principal); G93.41 Metabolic encephalopathy; J10.08 Influenza due to other identified influenza virus with other specified pneumonia; E44.1 Mild protein-calorie malnutrition; E11.65 Type 2 diabetes mellitus with hyperglycemia; G30.9 Alzheimer's disease, unspecified; E66.9 Obesity, unspecified; I70.0 Atherosclerosis of aorta; F32.A Depression, unspecified; I10 Essential (primary) hypertension; J98.11 Atelectasis; E78.00 Pure hypercholesterolemia, unspecified; F17.200 Nicotine dependence, unspecified, uncomplicated; I25.10 Atherosclerotic heart disease of native coronary artery without angina pectoris; H70.91 Unspecified mastoiditis, right ear; E86.0 Dehydration; K44.9 Diaphragmatic hernia without obstruction or gangrene; Z86.73 Personal history of transient ischemic attack (TIA), and cerebral infarction without residual deficits; Z68.23 Body mass index [BMI] 23.0-23.9, adult
CPT/HCPCS: 36415; 36600; 70450; 71045; 71250; 74150; 80048; 80053; 80061; 80202; 80305; 81001; 82140; 82550; 82803; 82948; 83036; 83721; 83735; 84132; 84484; 85025; 85027; 85378; 85610; 85730; 87040; 87426; 87804; 87880; 92610; 93005; 93306; 93356; 93880; 93970; 99291; G0378; J2470; J2543; J3373; J3411; J3475; J3480; J3490; J7030